=== PATIENT | male | born 1960 | race Caucasian/White ===

== ENCOUNTER 2016-05-21 10:03 | Emergency (ER) | payer MEDICARE ==
[2016-05-21 10:21] VITALS: BP 145/88
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
== END 2016-05-21 10:45 | disposition home or self-care (01) ==
LOC: UCEAST 10:03
DX: T54.3X1A Toxic effect of corrosive alkalis and alkali-like substances, accidental (unintentional), initial encounter (principal); T23.432A Corrosion of unspecified degree of multiple left fingers (nail), not including thumb, initial encounter; Y93.89 Activity, other specified; Y92.009 Unspecified place in unspecified non-institutional (private) residence as the place of occurrence of the external cause; Z86.73 Personal history of transient ischemic attack (TIA), and cerebral infarction without residual deficits; Z88.1 Allergy status to other antibiotic agents; Z87.891 Personal history of nicotine dependence
CPT/HCPCS: 99212; G0463

== ENCOUNTER 2016-08-24 07:12 | Emergency (ER) | payer MEDICARE ==
[2016-08-24] MEDS ORDERED: Lidocaine 2% EPI 1:200000 MPF* 20 ML VIAL INJ ONE (09:06)
[2016-08-24] MEDS ORDERED: Lidocaine 2% W/EPI 1:100,000* 20 ML MDV INJ ONE (09:19)
[2016-08-24 10:03] VITALS: BP 130/76
--- NOTE | 2016-08-24 14:33 | UC ---
leilani Huitron Timothy, scribed for Anabel Allison MD on 08/24/16 at 0906 . Skin Complaint HPI - HPI Summary HPI Summary: Pee De Jesus Jr. is a 56 yo male presenting to [facility] with a red raised lump at his right axilla causing 8/10 pain since 08/22/16 evening, without drainage. He denies any other Sx including fever, chills, diaphoresis, or Hx of similar Sx.. His MHx includes CVA, angina, HTN, HLD, diabetic neuropathy, DM II, MRSA. - History of Current Complaint Chief Complaint: UCSkin Time Seen by Provider: 08/24/16 09:20 Stated Complaint: SOFT TISSUE COMPLAINT Hx Obtained From: Patient Onset/Duration: Gradual Onset, Lasting Days, Still Present Skin Exposure Onset/Duration: Days Ago Timing: Constant Onset Severity: Moderate Current Severity: Moderate Pain Intensity: 8 Pain Scale Used: 0-10 Numeric Location: Other - right axilla Character: Swelling, Raised, Painful Associated Signs & Symptoms: Negative: Fever - Allergy/Home Medications Allergies/Adverse Reactions: Allergies Allergy/AdvReac Type Severity Reaction Status Date / Time Cephalexin [From Keflex] Allergy Severe Anaphylatic Verified 06/29/16 18:52 Shock Eggs or Egg-derived Products AdvReac Intermediate Diarrhea Verified 06/29/16 18: 52 Review of Systems Constitutional: Negative Skin: Other - red raised lump at right axilla Eyes: Negative ENT: Negative Respiratory: Negative Cardiovascular: Negative Gastrointestinal: Negative Genitourinary: Negative Motor: Negative Neurovascular: Negative Musculoskeletal: Negative Neurological: Negative Psychological: Negative All Other Systems Reviewed And Are Negative: Yes PMH/Surg Hx/FS Hx/Imm Hx Endocrine History: Diabetes - II, diabetic neuropathy Cardiovascular History: Hypertension, Other - angina Other Cardiovascular History: HLD Neurological History: CVA Other History Of: Negative For: Anticoagulant Therapy - Surgical History Surgical History: Yes Surgery Procedure, Year, and Place: appendectomy, tonsillectomy - Family History Known Family History: Positive: Diabetes Negative: Cardiac Disease - Social History Alcohol Use: Rare Alcohol Amount: Quit drinking 2 months ago Substance Use Type: None Smoking Status (MU): Former Smoker Have You Smoked in the Last Year: No When Did the Patient Quit Smoking/Using Tobacco: 10 YRS AGO ( 2005 ) Household Exposure Type: Cigarettes - Immunization History Most Recent Influenza Vaccination: Never Most Recent Tetanus Shot: UTD Physical Exam Triage Information Reviewed: Yes Vital Signs: Initial Vital Signs Temp 97.7 F 08/24/16 07:34 Pulse 77 08/24/16 07:34 Resp 18 08/24/16 07:34 BP 104/68 08/24/16 07:34 Pulse Ox 96 08/24/16 07:34 Vital Signs Reviewed: Yes - Additional Comments Constitutional: Pt is awake, A&Ox3, in no acute distress,and cooperative. HENT: atraumatic, BRUNO, there is cerumen in the left and right ears with no discharge. The nose shows no discharge or lesions. Throat: pink, no purulence, teeth in good repair. Neck: supple, no masses or adenopathy, no JVD, no thyromegaly. Respiratory: Lungs CTA bilaterally Cardiovascular: RRR, no murmur. Abd: soft, nontender, no masses, no organomegaly, Bowel Sounds: present and normal Musculoskeletal: Full ROM, good color to extremities, good tone, power 5/5 in all extremities Neuro: AOx3, cooperative, coherent Skin: clear, good turgor, except for right axilla where there is a raised swollen, tender, warm area of approximately 10cm in diameter. The redness is approximately 2.5 cm in diameter in the center. Re-Evaluation - Re-Evaluation First Eval Re-Evaluation Time: 09:36 Change: Unchanged Comment: I&D was performed - see procedure notes Course/Dx - Course Course Of Treatment: Pee De Jesus Jr. is a 56 yo male presenting to [facility] with a red raised lump on his right axilla causing 8/10 pain since 08/22/16. After clinical examination, an I&D was performed (see procedure notes) without complications, and Pt will be discharged home with right axilla skin abscess with appropriate instructions. - Differential Diagnoses - Skin Complaint Differential Diagnoses: Abscess - Diagnoses Provider Diagnoses: right axilla skin abscess Procedures - Procedure Summary Procedure Summary: I&D was performed on area of right axilla with 2% lidocaine with epinepherine and scalpel (11), packed with iodoform. Incision was approximately 1 cm long, a small amount of purulent material extruded and a culture was obtained. Pt tolerated procedure well. There were no complications.Very little bleeding occurred. - Incision and Drainage Site: Right axilla Anesthesia: Lidocaine - 2% with epi Instrument(s): Scalpel - size 11 Packing: Other - iodoform Discharge - Discharge Plan Condition: Stable Disposition: HOME Prescriptions: Sulfamethox/Trimethoprim DS* [Bactrim DS 800/160 TAB*] 1 tab PO BID #14 tab Patient Education Materials: Abscess (ED), Warm Compress or Soak (ED) Referrals: Aleksey Cruz MD [Primary Care Provider] - 2 Days Additional Instructions: Please follow up with your primary care physician regarding your visit to urgent care today in 2-3 days to have the packing removed. The results of your wound culture will be available in 3 days, at which point you will be contacted if a change in treatment is necessary. Take ibuprofen or tylenol as needed for pain. Return to urgent care or the emergency department with any new or recurring symptoms. The documentation as recorded by the leilani mora Timothy accurately reflects the service I personally performed and the decisions made by me, Anabel Allison MD.
== END 2016-08-24 10:03 | disposition home or self-care (01) ==
LOC: UCEAST 07:12
DX: L02.411 Cutaneous abscess of right axilla (principal); I10 Essential (primary) hypertension; E78.5 Hyperlipidemia, unspecified; Z87.891 Personal history of nicotine dependence; E11.40 Type 2 diabetes mellitus with diabetic neuropathy, unspecified
CPT/HCPCS: 10060; 87070; 87077; 87186; 87205; 87640; 87641; 99212; G0463

== ENCOUNTER 2016-10-01 15:46 | Emergency (ER) | payer MEDICARE ==
[2016-10-01 15:52] VITALS: BP 92/58
--- NOTE | 2016-10-01 16:13 | UC ---
Eye Complaint HPI - HPI Summary HPI Summary: 56 yo male with right lower lid pain and swelling x 3 days now with fb sensation no photophobia - History of Current Complaint Chief Complaint: UCEye Stated Complaint: EYE COMPLAINT Time Seen by Provider: 10/01/16 15:56 Hx Obtained From: Patient Onset/Duration: Gradual Onset, Lasting Days Timing: Constant Severity Initially: Mild Severity Currently: Mild Pain Intensity: 3 Pain Scale Used: 0-10 Numeric Location of Injury: Eye Lid (lower) Character: Dull, Foreign Body Sensation Associated Signs And Symptoms: Positive: Swelling Eyes: 1 - stye - Allergies/Home Medications Allergies/Adverse Reactions: Allergies Allergy/AdvReac Type Severity Reaction Status Date / Time Cephalexin [From Keflex] Allergy Severe Anaphylatic Verified 10/01/16 15:52 Shock Eggs or Egg-derived Products AdvReac Intermediate Diarrhea Verified 10/01/16 15: 52 PMH/Surg Hx/FS Hx/Imm Hx Previously Healthy: Yes Other History Of: Negative For: Anticoagulant Therapy - Surgical History Surgical History: Yes Surgery Procedure, Year, and Place: appendectomy, tonsillectomy - Family History Known Family History: Positive: Hypertension, Diabetes Negative: Cardiac Disease - Social History Alcohol Use: Rare Alcohol Amount: Quit drinking 2 months ago Substance Use Type: None Smoking Status (MU): Former Smoker Have You Smoked in the Last Year: No When Did the Patient Quit Smoking/Using Tobacco: 10 YRS AGO ( 2005 ) Household Exposure Type: Cigarettes - Immunization History Most Recent Influenza Vaccination: Never Most Recent Tetanus Shot: UTD Review of Systems Constitutional: Negative Skin: Negative Eyes: Negative ENT: Negative Respiratory: Negative Cardiovascular: Negative Gastrointestinal: Negative Genitourinary: Negative Motor: Negative Neurovascular: Negative Musculoskeletal: Negative Neurological: Negative Psychological: Negative All Other Systems Reviewed And Are Negative: Yes Physical Exam Triage Information Reviewed: Yes Appearance: Well-Appearing, No Pain Distress, Well-Nourished Vital Signs: Initial Vital Signs Temp 98.5 F 10/01/16 15:49 Pulse 87 10/01/16 15:49 Resp 18 10/01/16 15:49 BP 92/58 10/01/16 15:49 Pulse Ox 99 10/01/16 15:49 Eyes: Positive: Conjunctiva Clear, Other: - stye as note/also FB right lower palpebral conjunctiva ENT: Positive: Hearing grossly normal. Negative: Nasal congestion, Trismus, Muffled/hoarse voice Neck: Positive: Supple, Nontender Respiratory: Positive: Lungs clear, Normal breath sounds, No respiratory distress Cardiovascular: Positive: RRR, No Murmur Musculoskeletal: Positive: ROM Intact, No Edema Neurological: Positive: Alert Psychological Exam: Normal Skin Exam: Normal Procedures - Eye Procedure Alcaine Drops Administered: No Eye FB Removal: removal w/ cotton swab Eye Complaint Course/Dx - Differential Dx/Diagnosis Provider Diagnoses: stye right eyelid. foreign body removed from right lower lid palpebral conjunctiva Discharge - Discharge Plan Condition: Stable Disposition: HOME Prescriptions: Erythromycin OPHTH.OINT* [Ilotycin OPHTH.OINT*] 1 applic RIGHT EYE QID #1 ophth.oint Patient Education Materials: Stye (ED), Eye Foreign Body (ED) Referrals: Aleksey Cruz MD [Primary Care Provider] - 3 Days (if not better) Additional Instructions: warm compresses 4 x day
== END 2016-10-01 16:18 | disposition home or self-care (01) ==
LOC: UCEAST 15:46
DX: H00.012 Hordeolum externum right lower eyelid (principal); T15.11XA Foreign body in conjunctival sac, right eye, initial encounter; X58.XXXA Exposure to other specified factors, initial encounter; Y93.9 Activity, unspecified; Y92.9 Unspecified place or not applicable; Y99.9 Unspecified external cause status; Z88.1 Allergy status to other antibiotic agents; Z87.891 Personal history of nicotine dependence
CPT/HCPCS: 67938; 99212; G0463

== ENCOUNTER → 2016-10-28 16:43 | Emergency (ER) | payer MEDICARE ==
[~2016-10-28 16:43] MED LIST: Ketorolac INJ* 30 MG/ML 1 ML VIAL IV ONE
[2016-10-28 18:31] LABS: Hematocrit 40 % (42-52); Hemoglobin 13.8 g/dl (14.0-18.0); Mean Corpuscular HGB Conc 35 g/dl (31-36); Mean Corpuscular Hemoglobin 31 pg (27-31); Mean Corpuscular Volume 88 fL (80-94); Mean Platelet Volume 8 um3 (7.4-10.4); Red Blood Count 4.51 10^6/ul (4.0-5.4); Red Cell Distribution Width 13 % (10.5-15); White Blood Count 5.9 10^3/ul (3.5-10.8)
--- NOTE | 2016-10-28 18:54 | RAD ---
INDICATION: Headache. COMPARISON: Comparison is made with a prior CT of the brain from June 29, 2016. TECHNIQUE: Contiguous axial sections of the brain were obtained from the skull base to the vertex without contrast. FINDINGS: The ventricles, cisterns and sulci are within normal limits. No significant focal abnormality or mass effect is seen. There is no evidence for hemorrhage. No significant focal osseous abnormality is seen. The visualized portion of the paranasal sinuses and mastoid air cells appear clear. IMPRESSION: NO EVIDENCE FOR ACUTE INTRACRANIAL ABNORMALITY.
[2016-10-28 18:56] LABS: Albumin 4.1 g/dL (3.2-5.2); C Reactive Protein 1.32 mg/L (< 5.00); Calcium 9.3 mg/dL (8.6-10.3); EGFR African American 40.2 (>60); EGFR Non-African American 31.3 (>60); Globulin 2.8 g/dL (2-4); Potassium 4.1 mmol/L (3.5-5.0); Total Bilirubin 0.7 mg/dL (0.2-1.0); Total Protein 6.9 g/dL (6.4-8.9)
[2016-10-28] MEDS: NS 0.9% 1000 ML* 2,000 ML IV ONE ×2 (20:05→21:05)
[2016-10-28 22:41] VITALS: BP 149/66
--- NOTE | 2016-10-29 11:41 | ED ---
Bahman Huitron Nikita, scribed for Ramírez Harman MD on 10/28/16 at 1750 . Complex/Multi-Sys Presentation - HPI Summary HPI Summary: Pt is a 56 y/o M BIBA who presents to ED c/o blurred vision, dizziness, frontal INGRAM, photophobia and neck pain. All sx began this morning at 1330 while bending down after lifting multiple wood boards. Blurred vision is only present when the pt is bending down. Neck pain is described as being located "in the back bone." INGRAM and blurred vision are now intermittent. Associated pain is currently moderate, ranked 7/10. INGRAM aggravated by moving his head, alleviated by nothing. Denies edema. PMHx HTN. - History Of Current Complaint Chief Complaint: EDGeneral Time Seen by Provider: 10/28/16 17:45 Hx Obtained From: Patient Onset/Duration: Lasting Hours - Since 1330, Still Present Timing: Intermittent, Lasting: Severity Currently: Moderate - 7/10 Location: Pain At: - Neck pain and INGRAM Aggravating Factor(s): INGRAM - moving his head. Blurred vision - bending down Alleviating Factor(s): Nothing Associated Signs And Symptoms: Positive: Dizziness, Headache - frontal. Negative: Edema - Allergies/Home Medications Allergies/Adverse Reactions: Allergies Allergy/AdvReac Type Severity Reaction Status Date / Time Cephalexin [From Keflex] Allergy Severe Anaphylatic Verified 10/01/16 15:52 Shock Eggs or Egg-derived Products AdvReac Intermediate Diarrhea Verified 10/01/16 15: 52 PMH/Surg Hx/FS Hx/Imm Hx Endocrine/Hematology History: Reports: Hx Diabetes Denies: Hx Anticoagulant Therapy, Hx Systemic Lupus Erythematosus, Hx Thyroid Disease, Hx Anemia Cardiovascular History: Reports: Hx Angina, Hx Hypercholesterolemia, Other Cardiovascular Problems/Disorders - IDDM, ANGINA, HIGH CHOLESTEROL Denies: Hx Congestive Heart Failure, Hx Coronary Artery Disease, Hx Hypertension, Hx Myocardial Infarction, Hx Valvular Heart Disease Respiratory History: Denies: Hx Asthma, Hx Chronic Obstructive Pulmonary Disease (COPD) GI History: Denies: Hx Ulcer, Other GI Disorders - DENIES History: Denies: Hx Dialysis, Hx Renal Disease, Other Problems/Disorders - DENIES Musculoskeletal History: Denies: Hx Rheumatoid Arthritis Sensory History: Reports: Hx Contacts or Glasses - reading Opthamlomology History: Reports: Hx Contacts or Glasses - reading Neurological History: Reports: Hx Nerve Disease - diabetic neuropathy Denies: Hx Dementia, Hx Developmental Delay, Hx Headaches, Hx Migraine, Hx Seizures, Hx Spinal Cord Injury, Other Neuro Impairments/Disorders - Cancer History Cancer Type, Location and Year: DENIES Hx Chemotherapy: No - Surgical History Surgery Procedure, Year, and Place: appendectomy, tonsillectomy - Immunization History Date of Tetanus Vaccine: utd Date of Influenza Vaccine: utd Infectious Disease History: No Infectious Disease History: Denies: Hx Clostridium Difficile, Hx Hepatitis, Hx Human Immunodeficiency Virus (HIV), Hx of Known/Suspected MRSA, Hx Shingles, Hx Tuberculosis, Hx Known/ Suspected VRSA, History Other Infectious Disease, Traveled Outside the [place] in Last 30 Days - Family History Known Family History: Positive: Hypertension, Diabetes Negative: Cardiac Disease - Social History Alcohol Use: Occasionally Alcohol Amount: Quit drinking 2 months ago Substance Use Type: Reports: None Smoking Status (MU): Former Smoker Have You Smoked in the Last Year: No Review of Systems Positive: Photophobia, Blurred Vision - Intermittent Positive: Arthralgia - Neck pain. Negative: Edema Neurological: Other - Dizziness Positive: Headache - Frontal - intermittent All Other Systems Reviewed And Are Negative: Yes Physical Exam Triage Information Reviewed: Yes Vital Signs On Initial Exam: Initial Vitals Pulse Resp Pulse Ox 83 16 96 10/28/16 16:56 10/28/16 16:56 10/28/16 16:56 Vital Signs Reviewed: Yes Appearance: Positive: Well-Appearing, No Pain Distress Skin: Positive: Warm, Skin Color Reflects Adequate Perfusion, Dry Head/Face: Positive: Normal Head/Face Inspection Eyes: Positive: Normal ENT: Positive: Normal ENT inspection Neck: Positive: Tenderness @ - Cervical tenderness and tenderness to flexion of his neck but negative Kernig's and Brudzinski's signs, Other: - Negative Kernig' s and Brudzinski's signs Respiratory/Lung Sounds: Positive: Clear to Auscultation, Breath Sounds Present Cardiovascular: Positive: RRR Abdomen Description: Positive: Nontender, Soft Bowel Sounds: Positive: Present Musculoskeletal: Positive: Normal Neurological: Positive: Normal Psychiatric: Positive: Normal, Affect/Mood Appropriate - Anderson Coma Scale Best Eye Response: 4 - Spontaneous Best Motor Response: 6 - Obeys Commands Best Verbal Response: 5 - Oriented Coma Scale Total: 15 Diagnostics - Vital Signs Vital Signs Temp Pulse Resp BP Pulse Ox 10/28/16 17:02 98.8 F 83 19 130/80 98 10/28/16 17:01 83 12 130/80 96 10/28/16 17:00 84 13 96 10/28/16 16:56 83 16 96 - Laboratory Lab Results: Lab Results 10/28/16 10/28/16 Range/Units 18:23 18:23 WBC 5.9 (3.5-10.8) 10^3/ul RBC 4.51 (4.0-5.4) 10^6/ul Hgb 13.8 L (14.0-18.0) g/dl Hct 40 L (42-52) % MCV 88 (80-94) fL MCH 31 (27-31) pg MCHC 35 (31-36) g/dl RDW 13 (10.5-15) % Plt Count 275 (150-450) 10^3/ul MPV 8 (7.4-10.4) um3 Neut % (Auto) 51.1 (38-83) % Lymph % (Auto) 35.1 (25-47) % Rice % (Auto) 10.3 H (1-9) % Eos % (Auto) 2.7 (0-6) % Baso % (Auto) 0.8 (0-2) % Absolute Neuts (auto) 3.0 (1.5-7.7) 10^3/ul Absolute Lymphs (auto) 2.1 (1.0-4.8) 10^3/ul Absolute Monos (auto) 0.6 (0-0.8) 10^3/ul Absolute Eos (auto) 0.2 (0-0.6) 10^3/ul Absolute Basos (auto) 0 (0-0.2) 10^3/ul Absolute Nucleated RBC 0.01 10^3/ul Nucleated RBC % 0.1 Sodium 128 L (133-145) mmol/L Potassium 4.1 (3.5-5.0) mmol/L Chloride 96 L (101-111) mmol/L Carbon Dioxide 23 (22-32) mmol/L Anion Gap 9 (2-11) mmol/L BUN 46 H (6-24) mg/dL Creatinine 2.19 H (0.67-1.17) mg/dL Est GFR ( Amer) 40.2 (>60) Est GFR (Non-Af Amer) 31.3 (>60) BUN/Creatinine Ratio 21.0 H (8-20) Glucose 188 H (70-100) mg/dL Calcium 9.3 (8.6-10.3) mg/dL Total Bilirubin 0.70 (0.2-1.0) mg/dL AST 17 (13-39) U/L ALT 16 (7-52) U/L Alkaline Phosphatase 53 (34-104) U/L C-Reactive Protein 1.32 (< 5.00) mg/L Total Protein 6.9 (6.4-8.9) g/dL Albumin 4.1 (3.2-5.2) g/dL Globulin 2.8 (2-4) g/dL Albumin/Globulin Ratio 1.5 (1-3) Result Diagrams: 10/28/16 18:23 10/28/16 18:23 Lab Statement: Any lab studies that have been ordered have been reviewed, and results considered in the medical decision making process. - CT Brain CT CT Interpretation: No Acute Changes - NO EVIDENCE FOR ACUTE INTRACRANIAL ABNORMALITY. CT Interpretation Completed By: Radiologist - EKG 1714 Cardiac Rate: NL - 83 bpm EKG Rhythm: Sinus Rhythm EKG Interpretation: No ST elevations Re-Evaluation - Re-Evaluation First Eval Re-Evaluation Time: 20:41 Change: Improved Comment: Pt feels better after being given 1L of fluids. Will be given additional 1L. Complex Multi-Symp Course/Dx Course Of Treatment: Mr. De Jesus presented C/O a severe INGRAM. He was found to be quite dehydrated and his symptoms improved with rehydration. - Diagnoses Provider Diagnoses: Severe dehydration Discharge - Discharge Plan Condition: Stable Disposition: HOME Patient Education Materials: Dehydration (ED) Referrals: Aleksey Cruz MD [Primary Care Provider] - 3 Days The documentation as recorded by the Bahman mora Nikita accurately reflects the service I personally performed and the decisions made by me, Ramírez Harman MD.
== END | disposition home or self-care (01) ==
LOC: ED 16:43
DX: E86.0 Dehydration (principal); H53.8 Other visual disturbances; H53.149 Visual discomfort, unspecified; R51 Headache
CPT/HCPCS: 36415; 70450; 80053; 85025; 86140; 93005; 96361; 96374; 99283; J1885

== ENCOUNTER 2017-03-17 10:07 | Inpatient (IN) | payer MEDICARE, MEDICAID ==
[2017-03-17 10:58] LABS: Hematocrit 37 % (42-52); Hemoglobin 12.5 g/dl (14.0-18.0); Mean Corpuscular HGB Conc 34 g/dl (31-36); Mean Corpuscular Hemoglobin 30 pg (27-31); Mean Corpuscular Volume 89 fL (80-94); Mean Platelet Volume 7 um3 (7.4-10.4); Platelet Count 265 10^3/ul (150-450); Red Blood Count 4.14 10^6/ul (4.0-5.4); Red Cell Distribution Width 13 % (10.5-15); White Blood Count 7.4 10^3/ul (3.5-10.8)
[2017-03-17 11:08] LABS: ABS Basophils 0.1 10^3/ul (0-0.2); ABS Eosinophils 0.3 10^3/ul (0-0.6); ABS Lymphocytes 1.4 10^3/ul (1.0-4.8); ABS Monocytes 0.6 10^3/ul (0-0.8); ABS Nucleated RBC 0 10^3/ul; Eosinophil % 3.5 % (0-6); Lymphocyte % 18.8 % (25-47); Nucleated Red Blood Cells % 0
--- NOTE | 2017-03-17 11:16 | RAD ---
INDICATION: Necrosis of the toe, nonhealing ulcer. TECHNIQUE: 3 views of the left foot were obtained. FINDINGS: There is soft tissue swelling and a soft tissue defect present along the inferior aspect of the right great toe. There is calcific debris about the defect. The bones are normal alignment. No significant focal osseous erosion or discrete abnormality is seen. No periosteal reaction is noted. IMPRESSION: SOFT TISSUE SWELLING AND EROSION ALONG THE PLANTAR SURFACE OF THE GREAT TOE. NO SPECIFIC RADIOGRAPHIC EVIDENCE FOR OSTEOMYELITIS. THIS CAN BE FURTHER EVALUATED WITH AN MRI OF THE FOOT WITHOUT CONTRAST CLINICALLY NEEDED.
[2017-03-17 11:17] LABS: EGFR Non-African American 77.3 (>60)
[2017-03-17] MEDS ORDERED: Acetaminophen TAB* 325 MG PO PRN (13:22)
[2017-03-17] MEDS ORDERED: Dextrose 50% Syringe 50 ML* 25 GM/50 ML SYRINGE IV PUSH PRN (13:22)
[2017-03-17] MEDS ORDERED: HYDROcodone/ACETAMIN 5-325 MG* 1 TAB PO PRN (13:22)
[2017-03-17] MEDS ORDERED: Vancomycin(*) 1,000 MG in NS 0.9% 250 ML* 250 ML IVPB ONE (13:23)
[2017-03-17] MEDS ORDERED: Piperacillin/Tazobac ADVAN(*) 3.375 GM in NS 0.9% 100 ML* 100 ML IVPB ONE (13:29)
[2017-03-17] MEDS ORDERED: NS 0.9% 1000 ML* 1,000 ML IV SCH (13:30)
[2017-03-17] MEDS ORDERED: Zosyn per Pharmacy* NOTE FOLLOW UP SCH (14:00)
--- NOTE | 2017-03-17 14:31 | ED ---
Lower Extremity - HPI Summary HPI Summary: Patient presents to the ED with CC of left plantar surface toe pain and discoloration. He states he noticed it 1 week ago and "may have" injured it by scraping the surface of the toe. He is a diabetic but denies diabetic neuropathy stating the pain has progressively been worsening. While the discoloration began with erythema and warmth to the toe and into the MCP joint, he noticed black discoloration with a strong odor a few days ago. He has been cleaning it without relief. Denies other symptoms. He states he has been taking all of his diabetic medications as prescribed and checks his sugars regularly. Hx of HTN. Denies fevers, sweats and chills. Has been otherwise feeling well. Pain is now extending to the ankle and sometimes radiates into the knee. - History of Current Complaint Chief Complaint: EDExtremityLower Stated Complaint: FOOT PAIN Time Seen by Provider: 03/17/17 10:09 Hx Obtained From: Patient Mechanism Of Injury: Blunt Trauma Onset of Pain: Minutes Onset/Duration: Minutes Severity Initially: Moderate Severity Currently: Moderate Pain Intensity: 9 Timing: Constant Location: Is Discrete @ - plantar surface of the great toe Associated Signs And Symptoms: Positive: Swelling, Redness Aggravating Factor(s): Ambulation, Movement, Weight Bearing Alleviating Factor(s): Rest Able to Bear Weight: No - Risk Factors Gout Risk Factors: Diabetes - Allergies/Home Medications Allergies/Adverse Reactions: Allergies Allergy/AdvReac Type Severity Reaction Status Date / Time Cephalexin [From Keflex] Allergy Severe Anaphylatic Verified 10/01/16 15:52 Shock Eggs or Egg-derived Products AdvReac Intermediate Diarrhea Verified 10/01/16 15: 52 Home Medications: Home Medications Acarbose(NF) 50 mg PO TID 03/17/17 [History Confirmed 03/17/17] Insulin GLARGINE(*) [Lantus(*)] 26 units SUBCUT BEDTIME 03/17/17 [History Confirmed 03/17/17] Lisinopril TAB* [Prinivil TAB*] 10 mg PO DAILY 03/17/17 [History Confirmed 03/17] Pioglitazone TAB* [Actos TAB*] 30 mg PO DAILY 03/17/17 [History Confirmed ] Simvastatin TAB(NF) [Zocor(NF)] 20 mg PO DAILY 03/17/17 [History Confirmed 03/17] SitaGLIPtin (NF) [Januvia (NF)] 100 mg PO DAILY 03/17/17 [History Confirmed 07/28] PMH/Surg Hx/FS Hx/Imm Hx Previously Healthy: Yes Endocrine/Hematology History: Reports: Hx Diabetes Denies: Hx Anticoagulant Therapy, Hx Systemic Lupus Erythematosus, Hx Thyroid Disease, Hx Anemia Cardiovascular History: Reports: Hx Angina, Hx Hypercholesterolemia, Other Cardiovascular Problems/Disorders - IDDM, ANGINA, HIGH CHOLESTEROL Denies: Hx Congestive Heart Failure, Hx Coronary Artery Disease, Hx Hypertension, Hx Myocardial Infarction, Hx Valvular Heart Disease Respiratory History: Denies: Hx Asthma, Hx Chronic Obstructive Pulmonary Disease (COPD) GI History: Denies: Hx Ulcer, Other GI Disorders - DENIES History: Denies: Hx Dialysis, Hx Renal Disease, Other Problems/Disorders - DENIES Musculoskeletal History: Denies: Hx Rheumatoid Arthritis Sensory History: Reports: Hx Contacts or Glasses - reading Opthamlomology History: Reports: Hx Contacts or Glasses - reading Neurological History: Reports: Hx Nerve Disease - diabetic neuropathy Denies: Hx Dementia, Hx Developmental Delay, Hx Headaches, Hx Migraine, Hx Seizures, Hx Spinal Cord Injury, Other Neuro Impairments/Disorders - Cancer History Cancer Type, Location and Year: DENIES Hx Chemotherapy: No - Surgical History Surgery Procedure, Year, and Place: appendectomy, tonsillectomy - Immunization History Date of Tetanus Vaccine: utd Date of Influenza Vaccine: utd Infectious Disease History: No Infectious Disease History: Denies: Hx Clostridium Difficile, Hx Hepatitis, Hx Human Immunodeficiency Virus (HIV), Hx of Known/Suspected MRSA, Hx Shingles, Hx Tuberculosis, Hx Known/ Suspected VRSA, History Other Infectious Disease, Traveled Outside the [place] in Last 30 Days - Family History Known Family History: Positive: Hypertension, Diabetes Negative: Cardiac Disease - Social History Occupation: Unemployed Lives: With Family Alcohol Use: Occasionally Alcohol Amount: Quit drinking 2 months ago Hx Substance Use: No Substance Use Type: Reports: None Hx Tobacco Use: Yes Smoking Status (MU): Former Smoker Have You Smoked in the Last Year: No Review of Systems Constitutional: Negative Negative: Fever, Chills, Fatigue, Skin Diaphoresis Eyes: Negative Cardiovascular: Negative Respiratory: Negative Gastrointestinal: Negative Genitourinary: Negative Positive: no symptoms reported, see HPI Positive: Arthralgia - great L toe Positive: Other - necrosing tissue on the plantar surface of the L toe Neurological: Negative All Other Systems Reviewed And Are Negative: Yes Physical Exam - Summary Physical Exam Summary: Blackened, dry, devitalized tissue to the plantar surface of the L toe with surrounding dry yellow exudate with probing to the deep tissue without bone involvement. Dry, erythematous and warm slightly sloughing tissue surrounding the yellow exudate extending to the MCP joint of the great toe. Triage Information Reviewed: Yes Vital Signs On Initial Exam: Initial Vitals Temp Pulse Resp BP Pulse Ox 97.3 F 87 18 104/70 100 03/17/17 10:09 03/17/17 10:09 03/17/17 10:03/17/17 10:03/17/17 10:09 Vital Signs Reviewed: Yes Appearance: Positive: Well-Nourished Skin: Positive: Skin Color Reflects Adequate Perfusion, Other - Blackened, dry, devitalized tissue to the plantar surface of the L toe with surrounding dry yellow exudate with probing to the deep tissue without bone involvement. Dry, erythematous and warm slightly sloughing tissue surrounding the yellow exudate extending to the MCP joint of the great toe. Head/Face: Positive: Normal Head/Face Inspection Eyes: Positive: EOMI, BRUNO, Conjunctiva Clear Respiratory/Lung Sounds: Positive: Clear to Auscultation, Breath Sounds Present Cardiovascular: Positive: Normal, RRR, Pulses are Symmetrical in both Upper and Lower Extremities Musculoskeletal: Positive: Normal, Strength/ROM Intact Neurological: Positive: Speech Normal Psychiatric: Positive: Normal, Affect/Mood Appropriate - Gentry Coma Scale Coma Scale Total: 15 Diagnostics - Vital Signs Vital Signs Temp Pulse Resp BP Pulse Ox 03/17/17 13:09 88 98 03/17/17 13:07 139/78 03/17/17 10:09 97.3 F 87 18 104/70 100 - Laboratory Lab Results: Lab Results 03/17/17 03/17/17 03/17/17 Range/Units 10:35 10:35 10:35 WBC 7.4 (3.5-10.8) 10^3/ul RBC 4.14 (4.0-5.4) 10^6/ul Hgb 12.5 L (14.0-18.0) g/dl Hct 37 L (42-52) % MCV 89 (80-94) fL MCH 30 (27-31) pg MCHC 34 (31-36) g/dl RDW 13 (10.5-15) % Plt Count 265 (150-450) 10^3/ul MPV 7 L (7.4-10.4) um3 Neut % (Auto) 68.0 (38-83) % Lymph % (Auto) 18.8 L (25-47) % Young % (Auto) 8.8 (1-9) % Eos % (Auto) 3.5 (0-6) % Baso % (Auto) 0.9 (0-2) % Absolute Neuts (auto) 5.0 (1.5-7.7) 10^3/ul Absolute Lymphs (auto) 1.4 (1.0-4.8) 10^3/ul Absolute Monos (auto) 0.6 (0-0.8) 10^3/ul Absolute Eos (auto) 0.3 (0-0.6) 10^3/ul Absolute Basos (auto) 0.1 (0-0.2) 10^3/ul Absolute Nucleated RBC 0 10^3/ul Nucleated RBC % 0 ESR 60 H (0-20) mm/Hr Sodium 135 (133-145) mmol/L Potassium 4.3 (3.5-5.0) mmol/L Chloride 103 (101-111) mmol/L Carbon Dioxide 26 (22-32) mmol/L Anion Gap 6 (2-11) mmol/L BUN 22 (6-24) mg/dL Creatinine 1.00 (0.67-1.17) mg/dL Est GFR ( Amer) 99.4 (>60) Est GFR (Non-Af Amer) 77.3 (>60) BUN/Creatinine Ratio 22.0 H (8-20) Glucose 115 H (70-100) mg/dL Hemoglobin A1c 6.8 H (4.0-5.6) % Calcium 9.2 (8.6-10.3) mg/dL Total Bilirubin 0.30 (0.2-1.0) mg/dL AST 15 (13-39) U/L ALT 13 (7-52) U/L Alkaline Phosphatase 86 (34-104) U/L C-Reactive Protein 12.45 H (< 5.00) mg/L Total Protein 7.6 (6.4-8.9) g/dL Albumin 4.0 (3.2-5.2) g/dL Globulin 3.6 (2-4) g/dL Albumin/Globulin Ratio 1.1 (1-3) Result Diagrams: 03/17/17 10:35 03/17/17 10:35 Lab Statement: Any lab studies that have been ordered have been reviewed, and results considered in the medical decision making process. Lower Extremity Course/Dx - Course Course Of Treatment: Patient noted to have blackened, dry, devitalized tissue to the plantar surface of the L toe with surrounding dry yellow exudate with probing to the deep tissue without bone involvement. Dry, erythematous and warm slightly sloughing tissue surrounding the yellow exudate extending to the MCP joint of the great toe. Discussed case with Dr. Boucher who agrees to see patient and recommends admission for surgical debridement and IV antibiotics. Discussed case with Dr. Rincon who recommends surgical consult. Dr. Berumen called who recommends ortho for debridement. Hospitalist agrees to admit with Dr. Koch (ortho) to consult the patient today or tomorrow. Labs obtained and cultures obtained. Labs WNL. VS stable. - Diagnoses Provider Diagnoses: Diabetic ulcer of toe Discharge - Discharge Plan Condition: Stable Disposition: ADMITTED TO [facility] Referrals: Aleksey Cruz MD [Primary Care Provider] -
[2017-03-17] MEDS ORDERED: Gadoteridol* (CONTRAST) 279.3 MG/ML 10 ML IV ONE (15:04)
--- NOTE | 2017-03-17 15:05 | RAD ---
INDICATION: Osteomyelitis left great toe. COMPARISON: There are no prior studies available for comparison. TECHNIQUE: Bilateral ankle brachial indices were measured and Doppler tracings were obtained at the ankle of the dorsalis pedis and posterior tibial arteries. FINDINGS: The ankle brachial index on the right was 1.27 and on the left was 1.19. There is triphasic flow within the right posterior tibial artery and triphasic flow within the right dorsalis pedis artery. There is triphasic flow within the left posterior tibial artery and triphasic flow within the left dorsalis pedis artery. The toe brachial index was 0.83 on the right side is which is within normal limits. IMPRESSION: NEGATIVE EXAM.
[2017-03-17] MEDS ORDERED: Vancomycin per Pharmacy* NOTE FOLLOW UP PRN (15:07)
--- NOTE | 2017-03-17 16:29 | RAD ---
Indication: Ulcer at LEFT great toe. LEFT foot and ankle pain. Assess for osteomyelitis. Comparison: March 17, 2017 radiographs. Technique: Pre and postcontrast MRI LEFT ankle and foot. 17 mL ProHance administered IV. [employer] 1.5 Mya [id number] with GEM suite. Report: Corresponding with site of the ulcer at the medial plantar aspect of the tip of the great toe there is artifact from gas and metallic densities based on correlation with prior radiographs. There is diffuse bone marrow edema on inversion recovery at the distal phalanx of the great toe in corresponding loss of normal T1 marrow hyperintensity as well as enhancement on the postcontrast series consistent with osteomyelitis given the adjacent soft tissue ulcer. No loculated soft tissue plane abscess collection evident. Diffuse soft tissue edema from the visualized lower leg and ankle through the forefoot primarily involving the subcutaneous tissue plane with mild involvement of the intrinsic musculature of the foot. Negative for fracture, malalignment, or significant joint effusion. Degenerative arthropathy at the first tarsal metatarsal joint associated subchondral marrow edema. Negative for ankle ligament or tendon pathology. IMPRESSION: 1. Osteomyelitis throughout the distal phalanx of the great toe adjacent to the soft tissue ulcer. 2. Soft tissue edema/inflammatory change throughout the ankle and foot most marked at the subcutaneous tissue plane without evidence for a loculated abscess collection.
--- NOTE | 2017-03-17 16:30 | RAD ---
Indication: Ulcer at LEFT great toe. LEFT foot and ankle pain. Assess for osteomyelitis. Comparison: March 17, 2017 radiographs. Technique: Pre and postcontrast MRI LEFT ankle and foot. 17 mL ProHance administered IV. [employer] 1.5 Mya [id number] with GEM suite. Report: Corresponding with site of the ulcer at the medial plantar aspect of the tip of the great toe there is artifact from gas and metallic densities based on correlation with prior radiographs. There is diffuse bone marrow edema on inversion recovery at the distal phalanx of the great toe in corresponding loss of normal T1 marrow hyperintensity as well as enhancement on the postcontrast series consistent with osteomyelitis given the adjacent soft tissue ulcer. No loculated soft tissue plane abscess collection evident. Diffuse soft tissue edema from the visualized lower leg and ankle through the forefoot primarily involving the subcutaneous tissue plane with mild involvement of the intrinsic musculature of the foot. Negative for fracture, malalignment, or significant joint effusion. Degenerative arthropathy at the first tarsal metatarsal joint associated subchondral marrow edema. Negative for ankle ligament or tendon pathology. IMPRESSION: 1. Osteomyelitis throughout the distal phalanx of the great toe adjacent to the soft tissue ulcer. 2. Soft tissue edema/inflammatory change throughout the ankle and foot most marked at the subcutaneous tissue plane without evidence for a loculated abscess collection.
[2017-03-17] MEDS: Heparin VIAL(*) 5000 UNITS/ML VIAL (FIVE THOUSAND) SUBCUT SCH ×2 (17:44→20:44)
--- NOTE | 2017-03-17 18:04 | RAD ---
Indication: Osteoarthritis of the LEFT great toe. Comparison: September 05, 2014 Technique: Upright AP 1640 hours Report: Clear lungs and pleural spaces. Negative for pneumothorax. The heart, pulmonary vasculature, and mediastinal contours are unremarkable. Healed LEFT sixth, seventh, and eighth rib fractures without change. IMPRESSION: No evidence for acute intrathoracic disease.
[2017-03-17] MEDS: Insulin LISPRO* 1 UNITS UNIT SUBCUT SCH (19:01)
[2017-03-17] MEDS: ZOSYN 3.375 GM Q8H per EXTENDED INFUSION IVPB SCH ×2 (19:20)
--- NOTE | 2017-03-17 20:18 | HP ---
CC: Dr. Cruz; Dr. Koch; Dr. Hernandez * HISTORY AND PHYSICAL: DATE OF ADMISSION: 03/17/17 PRIMARY CARE PROVIDER: Dr. Cruz. ATTENDING PHYSICIAN WHILE IN THE HOSPITAL: Mo Rincon MD* (report dictated by Torres Duong NP). CONSULTING ORTHOPEDIC SURGEON: Dr. Koch. CONSULTING ID SPECIALIST: Dr. Hernandez. CHIEF COMPLAINT: Left great toe redness and wound. HISTORY OF PRESENT ILLNESS: Mr. De Jesus is a 56-year-old male patient with a history of diabetes. He also has a history of hypertension, migraines, and a history of remote CVA he says. He comes into the ED today stating that about few days before Sigurd, he noticed he was having difficulty with his left great toe. He notices the skin was coming off of it. It was looked like it was dry, then getting worse throughout the holiday. Then he says 2 to 3 days ago, he noticed that he had this black and discolored wound underneath his left great toe and the left great toe was started to get red, more painful, and swollen. He finally felt that he should probably seek medical attention for this and came into the ED today. He denied having any fevers or chills. Denies having any abdominal pain or any nausea or vomiting. Denies having any dysuria or any frequencies. He says he has not had any chest pain or shortness of breath. He says he is pretty active most of the time. He cannot get up a flight of stairs. He says that the wound is getting worse. He had no discharge or erythema and his ankle was starting to get painful, so he came into the ED today for evaluation. Evaluation is concerned for possible osteomyelitis, underlying cellulitis and we were asked to evaluate for admission. PAST MEDICAL HISTORY: Significant for: 1. Diabetes. 2. Hypertension. 3. History of migraines. 4. CVA. PAST SURGICAL HISTORY: He has had an appendectomy and tonsillectomy. MEDICATIONS: His home medications include: 1. Lisinopril 10 mg daily. 2. Actos 30 mg p.o. daily. 3. Lantus 26 units subcu at bedtime. 4. Acarbose 50 mg p.o. t.i.d. 5. Januvia 100 mg p.o. daily. 6. Zocor 20 mg a day. 7. Metformin 1000 mg p.o. b.i.d. ALLERGIES TO MEDICATIONS: KEFLEX and EGGS. FAMILY HISTORY: Both his parents had history of diabetes. SOCIAL HISTORY: He is a former smoker, rarely drinks alcohol. Surrogate decision maker is his sister. REVIEW OF SYSTEMS: There is no documented fever. He denied having any significant weight change. There was no double vision. He denies having any ear discharge. There was no rhinorrhea. No sore throat. No thyroid enlargement. Denied having any chest pain. There was no orthopnea. No nocturnal dyspnea. There was no abdominal pain. There was no dysuria, no frequency, no loss of consciousness. No pruritus, no skin ulcerations except in the aforementioned left great toe wound. Review of 14 systems was completed, all others negative. PHYSICAL EXAMINATION GENERAL: At this time, Mr. De Jesus is a 56-year-old male patient. He appears to be well-nourished, well-developed. He does not appear to be in any acute distress. VITAL SIGNS: Blood pressure 139/78, pulse 88, respirations 18, O2 sat 100%, temperature 97.3. HEENT: Head: Atraumatic, normocephalic. Eyes: EOMs are intact. Sclerae is anicteric and not pale. Throat: Oral mucosa appears to be moist. No oropharyngeal erythema. NECK: Supple. LUNGS: Clear to auscultation bilaterally. No wheezes, rales, or rhonchi. HEART: Sounds S1 and S2, regular rate and rhythm. No murmurs, rubs or gallops. ABDOMEN: Soft, flat, nontender. Bowel sounds are present. EXTREMITIES: Pulses were 2+ throughout. Moving all 4 extremities 5/5 strength. NEUROLOGIC: He is awake, alert, and oriented x3. No gross focal deficits. SKIN: He has a wound about the size of a johanna to the left great toe underneath that does have some eschar and necrotic tissue and there was erythema surrounding the entire great toe. He does have some pain palpated in the left ankle as well. No other wounds are noted. DIAGNOSTIC STUDIES/LAB DATA: His labs today revealed a WBC of 7.4, RBC of 4.14 , hemoglobin of 12.5, hematocrit of 37, platelet count of 255. Sodium is 135, potassium is 4.3, chloride of 103, bicarb 26, BUN 22, creatinine of 1, glucose of 115, calcium 9.5, total bili 0.3. AST 15, ALT 13, alk phos 86, CRP at 12, albumin of 4. The patient did have a foot x-ray obtained today, impression: Soft tissue swelling and erosion along the plantar surface of the great toe. No specific radiographic evidence of osteomyelitis, further evaluated with an MRI of the foot without contrast as clinically indicated. Old medical records were reviewed. ASSESSMENT AND PLAN: Mr. De Jesus is a 56-year-old male patient coming into the ED today with complaints of a left great toe wound. We were asked to evaluate for admission. He will be admitted under outpatient status for: 1. Left great toe wound. At this point, I will go ahead and get an MRI and Cynthia of the foot. Again, I talked with Dr. Koch who will evaluate the patient. He does not appear to be overtly septic, but I am concerned for cellulitis and possible osteomyelitis. I did get a wound care consult as well. We will get that MRI. We will put him on Zosyn and vancomycin. We will try to get wound culture and wound care involved as well to help us with the toe and we will continue to monitor him. 2. Diabetes. Checking an A1c, lispro sliding scale. 3. Hypertension. Continue medications as prescribed. His blood pressure now is in the 130s. We will follow. 4. History of migraines, p.r.n. Tylenol available. 5. History of cerebrovascular accident. Follow up with primary. 6. Code status. He is a full code. 7. Fluids, electrolytes, and nutrition. He can have a heart healthy diet and good consistent carb diet. 8. DVT prophylaxis. He is high risk. He will be placed on heparin subcu. TIME SPENT: On admission was approximately 60 minutes, greater than half the time was spent [id number] with the patient obtaining my history and physical, other half time was spent going over the plan of care with the patient and implementing plan of care. I did discuss the plan of care with my attending, Dr. Rincon; he is in agreement. TORRESNISSA DUONG NP [id number]/[facility] #: [id number] STONE
[2017-03-17] MEDS: Insulin GLARGINE(*) 1 UNITS UNIT SUBCUT SCH (20:42)
--- NOTE | 2017-03-17 21:51 | CONS ---
CONSULTATION REPORT: DATE OF CONSULT: 03/17/17 ATTENDING: Maninder Koch MD CONSULTING PROVIDER: Torres Duong NP CHIEF COMPLAINT: Left toe infection. HISTORY OF PRESENT ILLNESS: Briefly, Pee De Jesus is a 56-year-old male with diabetes, who presents with left foot swelling and pain. His great toe is red and swollen and painful. He also has left ankle pain. He states that a few weeks ago, it started to bother him, getting sore, he noticed an ulceration at the bottom of the great toe distal phalanx few days ago. This all began just before Ying happened. He denies any numbness or tingling. He is neuropathic at his toes only, but at the base of the feet he feels like he can feel okay. He does not know his hemoglobin A1c which was obtained today. He does have history of type 2 diabetes with noncompliance. PAST MEDICAL HISTORY: Significant for: 1. History of MRSA. 2. Diabetes type 2. 3. Hypertension. 4. History of migraine headaches. PAST SURGICAL HISTORY: Significant for appendectomy and tonsillectomy. MEDICATIONS: 1. Atenolol. 2. Kegley. 3. Lipitor. 4. Heparin. 5. Lantus and Humalog. 6. Lisinopril. 7. He is currently on vanco and Zosyn. ALLERGIES: KEFLEX has caused anaphylaxis. FAMILY HISTORY: Significant for diabetes. SOCIAL HISTORY: He does not smoke or drink. He quit smoking years ago. He does not use any illicit drugs. 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 REVIEW OF SYSTEMS: A 14-point review of systems is significant for the left foot pain. No numbness, no tingling. No fevers or chills. No shortness of breath or chest pain. Otherwise a 14-point review of systems were reviewed with the patient and negative. PHYSICAL EXAM: He is in no acute distress. He is well developed and well nourished. He is oriented x3. He has pleasant mood and normal affect. Examination of the left foot demonstrates left great toe is erythematous, it is insensate. He has 2 x 2 lesion on the plantar aspect of the great toe with no exposed bone that has dark eschar and appears to be black. There is no obvious debris. There is no drainage. He does have some small amount of erythema about the medial ankle, which is very tender to touch. He is sensate to light touch about the plantar aspect of foot, diminished about the mediolateral dorsal foot, diminished about the first dorsal web space. He is able to flex and extend his digits. He is able to dorsiflex and plantarflex his ankle. He is exquisitely tender about the medial ankle with cap refill about 3 seconds. Pulses were difficult to palpate. Calf is soft and nontender. Vital Signs: Temp 98.4, pulse is 78, respiratory rate is 16, O2 is 96, blood pressure 135/ 80. ABIs were done, that demonstrates as a negative exam, 1.27 on the right, on the left 1.19, triphasic flow. Toe brachial index was 0.83 on the right side which is within normal limits, considered a negative exam. DIAGNOSTIC STUDIES/LAB DATA: X-rays and MRI were reviewed. X-ray demonstrates soft tissue swelling and no obvious osteomyelitis. The lower extremity MRI was done including an ankle MRI that demonstrates osteomyelitis of the distal phalanx of the great toe with soft tissue ulceration as well as soft tissue edema and inflammatory change at the ankle and foot, but no obvious abscess. Labs obtained today demonstrates white blood cell count of 7.4, hematocrit 37, platelet count 265, ESR 60. Sodium of 135, potassium 4.3, chloride 103, carbon dioxide 26, BUN of 22, creatinine of 1, glucose of 115. Hemoglobin A1c is 6.8. C- reactive protein 12.45. ASSESSMENT AND PLAN: He has a left great toe osteomyelitis with ulceration plantarly. He has been started on antibiotics. Recommend wound care as well as we will discuss with my foot and ankle colleagues about the possible amputation of the great toe. We will continue to follow the patient while he is in-house. Potential surgery on Monday. [id number]/[facility] #: [id number] STONE
[2017-03-18] MEDS ORDERED: Vancomycin(*) 1,000 MG in NS 0.9% 250 ML* 250 ML IVPB SCH ×2
[2017-03-18] MEDS: ZOSYN 3.375 GM Q8H per EXTENDED INFUSION IVPB SCH ×6 (01:42→17:01)
[2017-03-18] MEDS: Heparin VIAL(*) 5000 UNITS/ML VIAL (FIVE THOUSAND) SUBCUT SCH ×3 (05:27→21:41)
[2017-03-18] MEDS: Insulin LISPRO* 1 UNITS UNIT SUBCUT SCH ×3 (09:06→17:00)
[2017-03-18] MEDS: Atorvastatin* 10 MG TAB PO SCH (09:13)
[2017-03-18] MEDS: Lisinopril TAB* 10 MG PO SCH (09:13)
--- NOTE | 2017-03-18 09:46 | PN ---
Progress Note - Progress Note Date of Service: 03/18/17 SOAP: Subjective: HD#1 pt without complaints. mild increase in odor. denies any SOB.CP Objective: Temp Pulse Resp BP Pulse Ox 97.4 F 79 16 111/62 97 03/18/17 04:31 03/18/17 04:31 03/18/17 04:31 03/18/17 04:31 03/18/17 04:31 NAD. left foot great toe with decreased erythema. able to flex/ext toe. neuropathic. purulence present about great toe wound with necrosis. Laboratory Results - last 24 hr 03/17/17 03/17/17 03/17/17 10:35 10:35 10:35 WBC 7.4 RBC 4.14 Hgb 12.5 L Hct 37 L MCV 89 MCH 30 MCHC 34 RDW 13 Plt Count 265 MPV 7 L Neut % (Auto) 68.0 Lymph % (Auto) 18.8 L [place] % (Auto) 8.8 Eos % (Auto) 3.5 Baso % (Auto) 0.9 Absolute Neuts (auto) 5.0 Absolute Lymphs (auto) 1.4 Absolute Monos (auto) 0.6 Absolute Eos (auto) 0.3 Absolute Basos (auto) 0.1 Absolute Nucleated RBC 0 Nucleated RBC % 0 ESR 60 H Sodium 135 Potassium 4.3 Chloride 103 Carbon Dioxide 26 Anion Gap 6 BUN 22 Creatinine 1.00 Est GFR ( Amer) 99.4 Est GFR (Non-Af Amer) 77.3 BUN/Creatinine Ratio 22.0 H Glucose 115 H POC Glucose (mg/dL) Hemoglobin A1c 6.8 H Calcium 9.2 Total Bilirubin 0.30 AST 15 ALT 13 Alkaline Phosphatase 86 C-Reactive Protein 12.45 H Total Protein 7.6 Albumin 4.0 Globulin 3.6 Albumin/Globulin Ratio 1.1 03/18/17 09:05 WBC RBC Hgb Hct MCV MCH MCHC RDW Plt Count MPV Neut % (Auto) Lymph % (Auto) [place] % (Auto) Eos % (Auto) Baso % (Auto) Absolute Neuts (auto) Absolute Lymphs (auto) Absolute Monos (auto) Absolute Eos (auto) Absolute Basos (auto) Absolute Nucleated RBC Nucleated RBC % ESR Sodium Potassium Chloride Carbon Dioxide Anion Gap BUN Creatinine Est GFR ( Amer) Est GFR (Non-Af Amer) BUN/Creatinine Ratio Glucose POC Glucose (mg/dL) 81 Hemoglobin A1c Calcium Total Bilirubin AST ALT Alkaline Phosphatase C-Reactive Protein Total Protein Albumin Globulin Albumin/Globulin Ratio Assessment: Left great toe osteomyelitis with ulceration. Plan: cont iv abx. WB through heel. dressing changes. plan for possible amputation versus debridement with Dr Patel Monday.
[2017-03-18 10:58] LABS: ABS Basophils 0.1 10^3/ul (0-0.2); ABS Eosinophils 0.2 10^3/ul (0-0.6); ABS Lymphocytes 1.1 10^3/ul (1.0-4.8); ABS Monocytes 0.5 10^3/ul (0-0.8); ABS Neutrophils 3.7 10^3/ul (1.5-7.7); ABS Nucleated RBC 0 10^3/ul; Eosinophil % 3.7 % (0-6); Hematocrit 34 % (42-52); Hemoglobin 11.7 g/dl (14.0-18.0); Lymphocyte % 19.2 % (25-47); Mean Corpuscular HGB Conc 35 g/dl (31-36); Mean Corpuscular Hemoglobin 31 pg (27-31); Mean Corpuscular Volume 89 fL (80-94); Mean Platelet Volume 8 um3 (7.4-10.4); Nucleated Red Blood Cells % 0; Platelet Count 235 10^3/ul (150-450); Red Blood Count 3.83 10^6/ul (4.0-5.4); Red Cell Distribution Width 12 % (10.5-15); White Blood Count 5.5 10^3/ul (3.5-10.8)
[2017-03-18 11:07] LABS: INR 1.1 (0.77-1.02)
[2017-03-18 11:13] LABS: EGFR Non-African American 89.6 (>60)
--- NOTE | 2017-03-18 13:21 | PN ---
Subjective Date of Service: 03/18/17 Interval History: Pt examined today at the bedside. He states he is feeling well. He denies chest pain and denies sob. Denies abdominal pain. Denies pain in his foot. ROS-denies fever, denies chills, denies abdominal pain, denies nausea, denies vomiting, denies lightheadedness, denies loc, denies chest pain, denies sob, review of 11 systems completed all others negative, Objective Active Medications: Acetaminophen (Tylenol Tab*) 650 mg PO Q4H PRN PRN Reason: FEVER/PAIN Hydrocodone Bitart/Acetaminophen ([place] 5-325 Tab*) 1 tab PO Q4H PRN PRN Reason: PAIN Atorvastatin Calcium (Lipitor*) 10 mg PO DAILY [facility] Last Admin: 03/18/17 09:13 Dose: 10 mg Dextrose (D50w Syringe 50 Ml*) 12.5 gm IV PUSH .FOR FS < 60 - SS PRN PRN Reason: FS < 60 Heparin Sodium (Porcine) (Heparin Vial(*)) 5,000 units SUBCUT Q8HR [facility] Last Admin: 03/18/17 13:11 Dose: 5,000 units Piperacillin Sod/Tazobactam (Sod 3.375 gm/ Sodium Chloride) 100 mls @ 25 mls/ hr IVPB Q8H [facility] Last Admin: 03/18/17 09:13 Dose: 25 mls/hr Insulin Glargine (Lantus(*)) 26 units SUBCUT BEDTIME [facility] Last Admin: 03/17/17 20:42 Dose: 26 units Insulin Human Lispro (Humalog*) 0 units SUBCUT AC [facility] PRN Reason: Protocol Last Admin: 03/18/17 13:11 Dose: 1 unit Lisinopril (Prinivil Tab*) 10 mg PO DAILY [facility] Last Admin: 03/18/17 09:13 Dose: 10 mg Vital Signs - 8 hr 03/18/17 08:34 Temperature 98.4 F Pulse Rate 78 Respiratory 18 Rate Blood Pressure 137/76 (mmHg) O2 Sat by Pulse 96 Oximetry Oxygen Devices in Use Now: None Appearance: 56 y/o male patient NAD, sitting in bed, Eyes: No Scleral Icterus, PERRLA Ears/Nose/Mouth/Throat: NL Teeth, Lips, Gums Neck: NL Appearance and Movements; NL JVP Respiratory: Symmetrical Chest Expansion and Respiratory Effort, Clear to Auscultation Cardiovascular: NL Sounds; No Murmurs; No JVD Abdominal: NL Sounds; No Tenderness; No Distention Extremities: No Edema Skin: - - dressing to left great toe, CDI, Neurological: Alert and Oriented x 3 Lines/Tubes/Other Access: Clean, Dry and Intact Peripheral IV Result Diagrams: 03/18/17 10:30 03/18/17 10:29 Additional Lab and Data: Lab Results 03/17/17 03/17/17 03/17/17 Range/Units 10:35 10:35 10:35 WBC 7.4 (3.5-10.8) 10^3/ul RBC 4.14 (4.0-5.4) 10^6/ul Hgb 12.5 L (14.0-18.0) g/dl Hct 37 L (42-52) % MCV 89 (80-94) fL MCH 30 (27-31) pg MCHC 34 (31-36) g/dl RDW 13 (10.5-15) % Plt Count 265 (150-450) 10^3/ul MPV 7 L (7.4-10.4) um3 Neut % (Auto) 68.0 (38-83) % Lymph % (Auto) 18.8 L (25-47) % [place] % (Auto) 8.8 (1-9) % Eos % (Auto) 3.5 (0-6) % Baso % (Auto) 0.9 (0-2) % Absolute Neuts (auto) 5.0 (1.5-7.7) 10^3/ul Absolute Lymphs (auto) 1.4 (1.0-4.8) 10^3/ul Absolute Monos (auto) 0.6 (0-0.8) 10^3/ul Absolute Eos (auto) 0.3 (0-0.6) 10^3/ul Absolute Basos (auto) 0.1 (0-0.2) 10^3/ul Absolute Nucleated RBC 0 10^3/ul Nucleated RBC % 0 ESR 60 H (0-20) mm/Hr Sodium 135 (133-145) mmol/L Potassium 4.3 (3.5-5.0) mmol/L Chloride 103 (101-111) mmol/L Carbon Dioxide 26 (22-32) mmol/L Anion Gap 6 (2-11) mmol/L BUN 22 (6-24) mg/dL Creatinine 1.00 (0.67-1.17) mg/dL Est GFR ( Amer) 99.4 (>60) Est GFR (Non-Af Amer) 77.3 (>60) BUN/Creatinine Ratio 22.0 H (8-20) Glucose 115 H (70-100) mg/dL Hemoglobin A1c 6.8 H (4.0-5.6) % Calcium 9.2 (8.6-10.3) mg/dL Total Bilirubin 0.30 (0.2-1.0) mg/dL AST 15 (13-39) U/L ALT 13 (7-52) U/L Alkaline Phosphatase 86 (34-104) U/L C-Reactive Protein 12.45 H (< 5.00) mg/L Total Protein 7.6 (6.4-8.9) g/dL Albumin 4.0 (3.2-5.2) g/dL Globulin 3.6 (2-4) g/dL Albumin/Globulin Ratio 1.1 (1-3) Microbiology and Other Data: Microbiology 03/17/17 17:40 Skin and Soft Tissue MRSA/MSSA (PCR - Final Toe - Left Big Mrsa Negative S.aureus Positive Gram Stain - Final 03/17/17 17:40 Nasal Screen MRSA (PCR)(HEATH) - Final Nasal Mrsa Negative Assess/Plan/Problems-Billing Assessment: 56 y/o male patient [place] [facility] [place] great toe wound found to have osteo of the left toe, - Patient Problems (1) Osteomyelitis Current Visit: Yes Status: Acute Priority: High Comment: Osteo of left great toe, continue iv abx, ID consult pending, on zosyn and vanco, follow bmp closely, ortho following, Dr faulkner to see monday (2) Diabetes Current Visit: Yes Status: Acute Priority: High Comment: Lantus and sliding scale continue, (3) HTN (hypertension) Current Visit: Yes Status: Acute Priority: High Comment: Continue lisinopril, bp stable, (4) DVT prophylaxis Current Visit: Yes Status: Acute Priority: High Comment: heparin sub q (5) FEN Current Visit: Yes Status: Acute Priority: High Comment: consistent carb diet, (6) Full code status Current Visit: Yes Status: Acute Code(s): Z78.9 - OTHER SPECIFIED HEALTH STATUS SNOMED Code(s): 068642768 Status and Disposition: IV abx, await ID consult, possible OR monday or I/D, cintia riley,
[2017-03-18] MEDS ORDERED: Vancomycin Trough Check NOTE FOLLOW UP ONE (15:30)
[2017-03-18] MEDS: Insulin GLARGINE(*) 1 UNITS UNIT SUBCUT SCH (21:40)
[2017-03-19] MEDS: ZOSYN 3.375 GM Q8H per EXTENDED INFUSION IVPB SCH ×6 (03:16→17:24)
[2017-03-19] MEDS: Heparin VIAL(*) 5000 UNITS/ML VIAL (FIVE THOUSAND) SUBCUT SCH ×3 (06:33→22:09)
[2017-03-19 07:22] LABS: ABS Basophils 0.1 10^3/ul (0-0.2); ABS Eosinophils 0.2 10^3/ul (0-0.6); ABS Lymphocytes 1.6 10^3/ul (1.0-4.8); ABS Monocytes 0.5 10^3/ul (0-0.8); ABS Neutrophils 2.8 10^3/ul (1.5-7.7); ABS Nucleated RBC 0 10^3/ul; Eosinophil % 4.5 % (0-6); Hematocrit 35 % (42-52); Hemoglobin 12.2 g/dl (14.0-18.0); Lymphocyte % 30.9 % (25-47); Mean Corpuscular HGB Conc 35 g/dl (31-36); Mean Corpuscular Hemoglobin 31 pg (27-31); Mean Corpuscular Volume 87 fL (80-94); Mean Platelet Volume 8 um3 (7.4-10.4); Nucleated Red Blood Cells % 0; Platelet Count 252 10^3/ul (150-450); Red Blood Count 3.96 10^6/ul (4.0-5.4); Red Cell Distribution Width 12 % (10.5-15); White Blood Count 5.2 10^3/ul (3.5-10.8)
[2017-03-19 07:35] LABS: EGFR Non-African American 79.1 (>60)
--- NOTE | 2017-03-19 09:00 | PN ---
Progress Note - Progress Note Date of Service: 03/19/17 SOAP: Subjective: Pt seen and examined. Eating at bedside. No complaints Objective: Temp Pulse Resp BP Pulse Ox 97.5 F 72 17 119/63 97 03/19/17 03:47 03/19/17 03:47 03/19/17 03:47 03/19/17 03:47 03/19/17 03:47 NAD. left toe dressing in place. able to dorsiflex/plantarflex foot. insensate about toe. erythema improved. calf soft nontender. warm perfused leg. Laboratory Results - last 24 hr 03/18/17 03/18/17 03/18/17 09:05 10:29 10:30 WBC 5.5 RBC 3.83 L Hgb 11.7 L Hct 34 L MCV 89 MCH 31 MCHC 35 RDW 12 Plt Count 235 MPV 8 Neut % (Auto) 66.3 Lymph % (Auto) 19.2 L [place] % (Auto) 9.7 H Eos % (Auto) 3.7 Baso % (Auto) 1.1 Absolute Neuts (auto) 3.7 Absolute Lymphs (auto) 1.1 Absolute Monos (auto) 0.5 Absolute Eos (auto) 0.2 Absolute Basos (auto) 0.1 Absolute Nucleated RBC 0 Nucleated RBC % 0 INR (Anticoag Therapy) Sodium 132 L Potassium 4.1 Chloride 102 Carbon Dioxide 25 Anion Gap 5 BUN 12 Creatinine 0.88 Est GFR ( Amer) 115.2 Est GFR (Non-Af Amer) 89.6 BUN/Creatinine Ratio 13.6 Glucose 202 H POC Glucose (mg/dL) 81 Calcium 8.7 Vancomycin Trough 03/18/17 03/18/17 03/18/17 10:30 13:04 15:50 WBC RBC Hgb Hct MCV MCH MCHC RDW Plt Count MPV Neut % (Auto) Lymph % (Auto) [place] % (Auto) Eos % (Auto) Baso % (Auto) Absolute Neuts (auto) Absolute Lymphs (auto) Absolute Monos (auto) Absolute Eos (auto) Absolute Basos (auto) Absolute Nucleated RBC Nucleated RBC % INR (Anticoag Therapy) 1.10 H Sodium Potassium Chloride Carbon Dioxide Anion Gap BUN Creatinine Est GFR ( Amer) Est GFR (Non-Af Amer) BUN/Creatinine Ratio Glucose POC Glucose (mg/dL) 143 H Calcium Vancomycin Trough 3.6 03/18/17 03/18/17 03/19/17 16:52 21:23 06:51 WBC 5.2 RBC 3.96 L Hgb 12.2 L Hct 35 L MCV 87 MCH 31 MCHC 35 RDW 12 Plt Count 252 MPV 8 Neut % (Auto) 53.8 Lymph % (Auto) 30.9 [place] % (Auto) 9.8 H Eos % (Auto) 4.5 Baso % (Auto) 1.0 Absolute Neuts (auto) 2.8 Absolute Lymphs (auto) 1.6 Absolute Monos (auto) 0.5 Absolute Eos (auto) 0.2 Absolute Basos (auto) 0.1 Absolute Nucleated RBC 0 Nucleated RBC % 0 INR (Anticoag Therapy) Sodium Potassium Chloride Carbon Dioxide Anion Gap BUN Creatinine Est GFR ( Amer) Est GFR (Non-Af Amer) BUN/Creatinine Ratio Glucose POC Glucose (mg/dL) 154 H 184 H Calcium Vancomycin Trough 03/19/17 06:51 WBC RBC Hgb Hct MCV MCH MCHC RDW Plt Count MPV Neut % (Auto) Lymph % (Auto) [place] % (Auto) Eos % (Auto) Baso % (Auto) Absolute Neuts (auto) Absolute Lymphs (auto) Absolute Monos (auto) Absolute Eos (auto) Absolute Basos (auto) Absolute Nucleated RBC Nucleated RBC % INR (Anticoag Therapy) Sodium 135 Potassium 4.2 Chloride 103 Carbon Dioxide 27 Anion Gap 5 BUN 15 Creatinine 0.98 Est GFR ( Amer) 101.8 Est GFR (Non-Af Amer) 79.1 BUN/Creatinine Ratio 15.3 Glucose 132 H POC Glucose (mg/dL) Calcium 9.2 Vancomycin Trough Assessment: A/P L great toe osteomyelitis with plantar ulceration Plan: WBAT through heel cont iv abx Dr Patel to [place] for possible toe amp tomorrow. NPO after midnight
[2017-03-19] MEDS: Lisinopril TAB* 10 MG PO SCH (09:39)
[2017-03-19] MEDS: Insulin LISPRO* 1 UNITS UNIT SUBCUT SCH ×3 (09:39→17:34)
[2017-03-19] MEDS: Atorvastatin* 10 MG TAB PO SCH (09:39)
--- NOTE | 2017-03-19 10:43 | PN ---
Subjective Date of Service: 03/19/17 Interval History: Pt examined today at the bedside. States that he is feeling well. He denies pain in is foot. States that he is ambulatory. Denies nausea or vomiting. Denies chest pain, ROS- denies fever, denies chills, denies abdominal pain, denies vomiting, denies lightheadedness, denies loc, denies chest pain, denies sob, review of 11 systems completed all others negative, Objective Active Medications: Acetaminophen (Tylenol Tab*) 650 mg PO Q4H PRN PRN Reason: FEVER/PAIN Hydrocodone Bitart/Acetaminophen ([place] 5-325 Tab*) 1 tab PO Q4H PRN PRN Reason: PAIN Atorvastatin Calcium (Lipitor*) 10 mg PO DAILY [facility] Last Admin: 03/19/17 09:39 Dose: 10 mg Dextrose (D50w Syringe 50 Ml*) 12.5 gm IV PUSH .FOR FS < 60 - SS PRN PRN Reason: FS < 60 Heparin Sodium (Porcine) (Heparin Vial(*)) 5,000 units SUBCUT Q8HR [facility] Last Admin: 03/19/17 06:33 Dose: 5,000 units Piperacillin Sod/Tazobactam (Sod 3.375 gm/ Sodium Chloride) 100 mls @ 25 mls/ hr IVPB Q8H [facility] Last Admin: 03/19/17 09:53 Dose: 25 mls/hr Insulin Glargine (Lantus(*)) 26 units SUBCUT BEDTIME [facility] Last Admin: 03/18/17 21:40 Dose: 26 units Insulin Human Lispro (Humalog*) 0 units SUBCUT AC [facility] PRN Reason: Protocol Last Admin: 03/19/17 09:39 Dose: 1 unit Lisinopril (Prinivil Tab*) 10 mg PO DAILY [facility] Last Admin: 03/19/17 09:39 Dose: 10 mg Vital Signs - 8 hr 03/19/17 03:47 Temperature 97.5 F Pulse Rate 72 Respiratory 17 Rate Blood Pressure 119/63 (mmHg) O2 Sat by Pulse 97 Oximetry Oxygen Devices in Use Now: None Appearance: 56 y/o male patient well nourished and well developed, NAD< Eyes: No Scleral Icterus, PERRLA Ears/Nose/Mouth/Throat: NL Teeth, Lips, Gums Neck: NL Appearance and Movements; NL JVP Respiratory: Symmetrical Chest Expansion and Respiratory Effort, Clear to Auscultation Cardiovascular: NL Sounds; No Murmurs; No JVD Abdominal: NL Sounds; No Tenderness; No Distention Extremities: - - dressing to Left great toe, CDI, Skin: - - Dressing to left great toe CDI, Neurological: Alert and Oriented x 3 Lines/Tubes/Other Access: Clean, Dry and Intact Peripheral IV Result Diagrams: 03/19/17 06:51 03/19/17 06:51 Additional Lab and Data: Lab Results 03/17/17 03/17/17 03/17/17 Range/Units 10:35 10:35 10:35 WBC 7.4 (3.5-10.8) 10^3/ul RBC 4.14 (4.0-5.4) 10^6/ul Hgb 12.5 L (14.0-18.0) g/dl Hct 37 L (42-52) % MCV 89 (80-94) fL MCH 30 (27-31) pg MCHC 34 (31-36) g/dl RDW 13 (10.5-15) % Plt Count 265 (150-450) 10^3/ul MPV 7 L (7.4-10.4) um3 Neut % (Auto) 68.0 (38-83) % Lymph % (Auto) 18.8 L (25-47) % [place] % (Auto) 8.8 (1-9) % Eos % (Auto) 3.5 (0-6) % Baso % (Auto) 0.9 (0-2) % Absolute Neuts (auto) 5.0 (1.5-7.7) 10^3/ul Absolute Lymphs (auto) 1.4 (1.0-4.8) 10^3/ul Absolute Monos (auto) 0.6 (0-0.8) 10^3/ul Absolute Eos (auto) 0.3 (0-0.6) 10^3/ul Absolute Basos (auto) 0.1 (0-0.2) 10^3/ul Absolute Nucleated RBC 0 10^3/ul Nucleated RBC % 0 ESR 60 H (0-20) mm/Hr Sodium 135 (133-145) mmol/L Potassium 4.3 (3.5-5.0) mmol/L Chloride 103 (101-111) mmol/L Carbon Dioxide 26 (22-32) mmol/L Anion Gap 6 (2-11) mmol/L BUN 22 (6-24) mg/dL Creatinine 1.00 (0.67-1.17) mg/dL Est GFR ( Amer) 99.4 (>60) Est GFR (Non-Af Amer) 77.3 (>60) BUN/Creatinine Ratio 22.0 H (8-20) Glucose 115 H (70-100) mg/dL Hemoglobin A1c 6.8 H (4.0-5.6) % Calcium 9.2 (8.6-10.3) mg/dL Total Bilirubin 0.30 (0.2-1.0) mg/dL AST 15 (13-39) U/L ALT 13 (7-52) U/L Alkaline Phosphatase 86 (34-104) U/L C-Reactive Protein 12.45 H (< 5.00) mg/L Total Protein 7.6 (6.4-8.9) g/dL Albumin 4.0 (3.2-5.2) g/dL Globulin 3.6 (2-4) g/dL Albumin/Globulin Ratio 1.1 (1-3) Microbiology and Other Data: Microbiology 03/17/17 17:40 Skin and Soft Tissue MRSA/MSSA (PCR - Final Toe - Left Big Mrsa Negative S.aureus Positive Gram Stain - Final 03/17/17 17:40 Nasal Screen MRSA (PCR)(HEATH) - Final Nasal Mrsa Negative Assess/Plan/Problems-Billing Assessment: 56 y/o male patient [place] [facility] [place] toe wound found to have osteo of the left toe, - Patient Problems (1) Osteomyelitis Current Visit: Yes Status: Acute Priority: High Comment: Osteo of left great toe, continue iv abx, ID consult pending, on zosyn and vanco, follow bmp closely, ortho following, OR tomorrow with DR Patel (2) Diabetes Current Visit: Yes Status: Acute Priority: High Comment: Lantus and sliding scale continue, blood sugars stable, (3) HTN (hypertension) Current Visit: Yes Status: Acute Priority: High Comment: BP stable hold lisinopril in AM, restart Post-op (4) DVT prophylaxis Current Visit: Yes Status: Acute Priority: High Comment: heparin sub q (5) FEN Current Visit: Yes Status: Acute Priority: High Comment: consistent carb diet, (6) Full code status Current Visit: Yes Status: Acute Code(s): Z78.9 - OTHER SPECIFIED HEALTH STATUS SNOMED Code(s): 209633967 Status and Disposition: IV abx, await ID consult, OR monday cintia riley,
[2017-03-19] MEDS: Insulin GLARGINE(*) 1 UNITS UNIT SUBCUT SCH (22:10)
[2017-03-20] MEDS: ZOSYN 3.375 GM Q8H per EXTENDED INFUSION IVPB SCH ×6 (02:12→17:49)
[2017-03-20 04:23] LABS: ABS Basophils 0.1 10^3/ul (0-0.2); ABS Eosinophils 0.3 10^3/ul (0-0.6); ABS Lymphocytes 1.9 10^3/ul (1.0-4.8); ABS Monocytes 0.5 10^3/ul (0-0.8); ABS Neutrophils 2.8 10^3/ul (1.5-7.7); ABS Nucleated RBC 0 10^3/ul; Eosinophil % 5.3 % (0-6); Hematocrit 35 % (42-52); Hemoglobin 12.1 g/dl (14.0-18.0); Lymphocyte % 33.8 % (25-47); Mean Corpuscular HGB Conc 35 g/dl (31-36); Mean Corpuscular Hemoglobin 30 pg (27-31); Mean Corpuscular Volume 87 fL (80-94); Mean Platelet Volume 7 um3 (7.4-10.4); Nucleated Red Blood Cells % 0; Platelet Count 252 10^3/ul (150-450); Red Blood Count 4.02 10^6/ul (4.0-5.4); Red Cell Distribution Width 12 % (10.5-15); White Blood Count 5.5 10^3/ul (3.5-10.8)
[2017-03-20 04:37] LABS: EGFR Non-African American 66.4 (>60)
[2017-03-20] MEDS: Heparin VIAL(*) 5000 UNITS/ML VIAL (FIVE THOUSAND) SUBCUT SCH ×3 (06:07→22:53)
[2017-03-20] MEDS: Insulin LISPRO* 1 UNITS UNIT SUBCUT SCH ×3 (08:22→17:50)
[2017-03-20] MEDS ORDERED: Midazolam* 1 MG/ML 2 ML VIAL (2 MG) ONE ×2 (09:52→10:14)
[2017-03-20] MEDS: Atorvastatin* 10 MG TAB PO SCH (10:11)
[2017-03-20] MEDS ORDERED: fentaNYL* 50 MCG/ML 2 ML VIAL (100 MCG VIAL) ONE (10:14)
[2017-03-20] MEDS ORDERED: Lidocaine 2% PF* 10 ML AMP ONE (10:20)
[2017-03-20] MEDS ORDERED: oxyCODONE TAB* 5 MG TAB PO PRN (10:42)
[2017-03-20] MEDS ORDERED: Naloxone* 0.4 MG/ML 1 ML VIAL IV PRN (10:42)
[2017-03-20] MEDS ORDERED: fentaNYL* 50 MCG/ML 2 ML VIAL (100 MCG VIAL) IV PRN (10:42)
[2017-03-20] MEDS ORDERED: Ondansetron INJ* 2 MG/ML VIAL IV PRN (10:42)
--- NOTE | 2017-03-20 12:07 | PN ---
Subjective Date of Service: 03/20/17 Interval History: PT examined today at the bedside. Pt states that he hungry. Denies pain in his foot. Denies chest pain or sob. Denies nausea or vomiting. ROS-denies fever, denies chills, denies abdominal pain, denies nausea or vomiting, denies lightheadedness, denies loc, denies chest pain, denies sob, review of 11 systems completed all others negative, Objective Active Medications: Acetaminophen (Tylenol Tab*) 650 mg PO Q4H PRN PRN Reason: FEVER/PAIN Hydrocodone Bitart/Acetaminophen ([place] 5-325 Tab*) 1 tab PO Q4H PRN PRN Reason: PAIN Atorvastatin Calcium (Lipitor*) 10 mg PO DAILY [facility] Last Admin: 03/20/17 10:11 Dose: Not Given Dextrose (D50w Syringe 50 Ml*) 12.5 gm IV PUSH .FOR FS < 60 - SS PRN PRN Reason: FS < 60 Fentanyl Citrate (Fentanyl*) 25 mcg IV Q2M PRN PRN Reason: PAIN - MODERATE Heparin Sodium (Porcine) (Heparin Vial(*)) 5,000 units SUBCUT Q8HR [facility] Last Admin: 03/20/17 06:07 Dose: Not Given Piperacillin Sod/Tazobactam (Sod 3.375 gm/ Sodium Chloride) 100 mls @ 25 mls/ hr IVPB Q8H [facility] Last Admin: 03/20/17 10:00 Dose: 25 mls/hr Insulin Glargine (Lantus(*)) 26 units SUBCUT BEDTIME [facility] Last Admin: 03/19/17 22:10 Dose: 26 units Insulin Human Lispro (Humalog*) 0 units SUBCUT AC [facility] PRN Reason: Protocol Last Admin: 03/20/17 08:22 Dose: Not Given Lisinopril (Prinivil Tab*) 10 mg PO DAILY [facility] Naloxone HCl (Narcan*) 0.08 mg IV Q2M PRN PRN Reason: severe induced resp depression Ondansetron HCl (Zofran Inj*) 4 mg IV ONCE PRN PRN Reason: NAUSEA/VOMITING Oxycodone HCl (Roxycodone Tab*) 5 mg PO ONCE PRN PRN Reason: PAIN - MODERATE Vital Signs - 8 hr 03/20/17 03/20/17 03/20/17 07:32 07:53 10:00 Temperature 98.0 F Pulse Rate 76 71 Respiratory 18 18 16 Rate Blood Pressure 115/60 137/78 (mmHg) O2 Sat by Pulse 95 91 Oximetry 03/20/17 03/20/17 03/20/17 10:52 10:55 11:15 Temperature 97.2 F Pulse Rate 73 69 72 Respiratory 16 16 16 Rate Blood Pressure 153/87 139/80 138/76 (mmHg) O2 Sat by Pulse 92 91 94 Oximetry Oxygen Devices in Use Now: Nasal Cannula Appearance: 56 y/o male patient sitting in bed NAD, Eyes: No Scleral Icterus, PERRLA Ears/Nose/Mouth/Throat: NL Teeth, Lips, Gums Neck: NL Appearance and Movements; NL JVP Respiratory: Symmetrical Chest Expansion and Respiratory Effort, Clear to Auscultation Cardiovascular: NL Sounds; No Murmurs; No JVD Abdominal: NL Sounds; No Tenderness; No Distention Extremities: No Edema Skin: No Rash or Ulcers, - - dressing to right foot CDI, Neurological: Alert and Oriented x 3 Lines/Tubes/Other Access: Clean, Dry and Intact Peripheral IV Result Diagrams: 03/20/17 04:15 03/20/17 04:15 Additional Lab and Data: Lab Results 03/17/17 03/17/17 03/17/17 Range/Units 10:35 10:35 10:35 WBC 7.4 (3.5-10.8) 10^3/ul RBC 4.14 (4.0-5.4) 10^6/ul Hgb 12.5 L (14.0-18.0) g/dl Hct 37 L (42-52) % MCV 89 (80-94) fL MCH 30 (27-31) pg MCHC 34 (31-36) g/dl RDW 13 (10.5-15) % Plt Count 265 (150-450) 10^3/ul MPV 7 L (7.4-10.4) um3 Neut % (Auto) 68.0 (38-83) % Lymph % (Auto) 18.8 L (25-47) % [place] % (Auto) 8.8 (1-9) % Eos % (Auto) 3.5 (0-6) % Baso % (Auto) 0.9 (0-2) % Absolute Neuts (auto) 5.0 (1.5-7.7) 10^3/ul Absolute Lymphs (auto) 1.4 (1.0-4.8) 10^3/ul Absolute Monos (auto) 0.6 (0-0.8) 10^3/ul Absolute Eos (auto) 0.3 (0-0.6) 10^3/ul Absolute Basos (auto) 0.1 (0-0.2) 10^3/ul Absolute Nucleated RBC 0 10^3/ul Nucleated RBC % 0 ESR 60 H (0-20) mm/Hr Sodium 135 (133-145) mmol/L Potassium 4.3 (3.5-5.0) mmol/L Chloride 103 (101-111) mmol/L Carbon Dioxide 26 (22-32) mmol/L Anion Gap 6 (2-11) mmol/L BUN 22 (6-24) mg/dL Creatinine 1.00 (0.67-1.17) mg/dL Est GFR ( Amer) 99.4 (>60) Est GFR (Non-Af Amer) 77.3 (>60) BUN/Creatinine Ratio 22.0 H (8-20) Glucose 115 H (70-100) mg/dL Hemoglobin A1c 6.8 H (4.0-5.6) % Calcium 9.2 (8.6-10.3) mg/dL Total Bilirubin 0.30 (0.2-1.0) mg/dL AST 15 (13-39) U/L ALT 13 (7-52) U/L Alkaline Phosphatase 86 (34-104) U/L C-Reactive Protein 12.45 H (< 5.00) mg/L Total Protein 7.6 (6.4-8.9) g/dL Albumin 4.0 (3.2-5.2) g/dL Globulin 3.6 (2-4) g/dL Albumin/Globulin Ratio 1.1 (1-3) Microbiology and Other Data: Microbiology 03/17/17 17:40 Skin and Soft Tissue MRSA/MSSA (PCR - Final Toe - Left Big Mrsa Negative S.aureus Positive Gram Stain - Final 03/17/17 17:40 Nasal Screen MRSA (PCR)(HEATH) - Final Nasal Mrsa Negative Assess/Plan/Problems-Billing Assessment: 56 y/[place] [facility] [place] toe wound found to have osteo of the left toe, - Patient Problems (1) Osteomyelitis Current Visit: Yes Status: Acute Priority: High Comment: Osteo of left great toe, continue iv abx, ID consult pending, on zosyn s/p left great toa amp POD 0 (2) Diabetes Current Visit: Yes Status: Acute Priority: High Comment: Lantus and sliding scale continue, blood sugars stable, (3) HTN (hypertension) Current Visit: Yes Status: Acute Priority: High Comment: BP stable hold lisinopril in AM, restart tomorrow (4) DVT prophylaxis Current Visit: Yes Status: Acute Priority: High Comment: heparin sub q (5) FEN Current Visit: Yes Status: Acute Priority: High Comment: consistent carb diet, (6) Full code status Current Visit: Yes Status: Acute Priority: High Status and Disposition: IV abx, await ID consult, PT eval and ID consult pending most likely will need iv abx and home services,
[2017-03-20] MEDS: Insulin GLARGINE(*) 1 UNITS UNIT SUBCUT SCH (22:52)
[2017-03-21] MEDS: ZOSYN 3.375 GM Q8H per EXTENDED INFUSION IVPB SCH ×4 (03:08→10:08)
[2017-03-21 06:10] LABS: ABS Basophils 0.1 10^3/ul (0-0.2); ABS Eosinophils 0.3 10^3/ul (0-0.6); ABS Lymphocytes 1.9 10^3/ul (1.0-4.8); ABS Monocytes 0.7 10^3/ul (0-0.8); ABS Neutrophils 4.7 10^3/ul (1.5-7.7); ABS Nucleated RBC 0 10^3/ul; Eosinophil % 4.2 % (0-6); Hematocrit 35 % (42-52); Hemoglobin 12.2 g/dl (14.0-18.0); Lymphocyte % 24.8 % (25-47); Mean Corpuscular HGB Conc 35 g/dl (31-36); Mean Corpuscular Hemoglobin 30 pg (27-31); Mean Corpuscular Volume 87 fL (80-94); Mean Platelet Volume 7 um3 (7.4-10.4); Nucleated Red Blood Cells % 0; Platelet Count 271 10^3/ul (150-450); Red Blood Count 4.03 10^6/ul (4.0-5.4); Red Cell Distribution Width 12 % (10.5-15); White Blood Count 7.8 10^3/ul (3.5-10.8)
[2017-03-21 06:17] LABS: EGFR Non-African American 76.4 (>60)
[2017-03-21] MEDS: Heparin VIAL(*) 5000 UNITS/ML VIAL (FIVE THOUSAND) SUBCUT SCH ×3 (06:21→21:22)
[2017-03-21] MEDS: Insulin LISPRO* 1 UNITS UNIT SUBCUT SCH ×3 (07:35→17:40)
[2017-03-21] MEDS: Atorvastatin* 10 MG TAB PO SCH (07:48)
[2017-03-21] MEDS: Lisinopril TAB* 10 MG PO SCH (07:48)
--- NOTE | 2017-03-21 11:53 | PN ---
Progress Note - Progress Note Date of Service: 03/21/17 SOAP: Subjective: []patient seen at bedside. he denies L foot pain, CP, SOB Objective: [] Vital Signs Temp 97.8 F 03/21/17 11:44 Pulse 81 03/21/17 11:44 Resp 16 03/21/17 11:44 BP 114/59 03/21/17 11:44 Pulse Ox 95 03/21/17 11:44 Intake & Output 03/20/17 03/21/17 03/21/17 18:59 06:59 18:59 Intake Total 1570 1440 590 Output Total 275 Balance 1570 1165 590 Intake: IV Fluids 300 200 ABX - ZOSYN 200 lr 300 Oral 1270 1240 590 Output: Urine 275 Other: Estimated Void Medium # Bowel Movements 1 Estimated Stool Amount Medium Estimated Blood Loss min Comment # Voids 2 Laboratory Last Values WBC 7.8 10^3/ul (3.5-10.8) 03/21/17 05:16 RBC 4.03 10^6/ul (4.0-5.4) 03/21/17 05:16 Hgb 12.2 g/dl (14.0-18.0) L 03/21/17 05:16 Hct 35 % (42-52) L 03/21/17 05:16 MCV 87 fL (80-94) 03/21/17 05:16 MCH 30 pg (27-31) 03/21/17 05:16 MCHC 35 g/dl (31-36) 03/21/17 05:16 RDW 12 % (10.5-15) 03/21/17 05:16 Plt Count 271 10^3/ul (150-450) 03/21/17 05:16 MPV 7 um3 (7.4-10.4) L 03/21/17 05:16 Neut % (Auto) 61.0 % (38-83) 03/21/17 05:16 Lymph % (Auto) 24.8 % (25-47) L 03/21/17 05:16 [place] % (Auto) 9.3 % (1-9) H 03/21/17 05:16 Eos % (Auto) 4.2 % (0-6) 03/21/17 05:16 Baso % (Auto) 0.7 % (0-2) 03/21/17 05:16 Absolute Neuts (auto) 4.7 10^3/ul (1.5-7.7) 03/21/17 05:16 Absolute Lymphs (auto) 1.9 10^3/ul (1.0-4.8) 03/21/17 05:16 Absolute Monos (auto) 0.7 10^3/ul (0-0.8) 03/21/17 05:16 Absolute Eos (auto) 0.3 10^3/ul (0-0.6) 03/21/17 05:16 Absolute Basos (auto) 0.1 10^3/ul (0-0.2) 03/21/17 05:16 Absolute Nucleated RBC 0 10^3/ul 03/21/17 05:16 Nucleated RBC % 0 03/21/17 05:16 ESR 60 mm/Hr (0-20) H 03/17/17 10:35 INR (Anticoag Therapy) 1.10 (0.77-1.02) H 03/18/17 10:30 Sodium 135 mmol/L (133-145) 03/21/17 05:16 Potassium 4.0 mmol/L (3.5-5.0) 03/21/17 05:16 Chloride 102 mmol/L (101-111) 03/21/17 05:16 Carbon Dioxide 27 mmol/L (22-32) 03/21/17 05:16 Anion Gap 6 mmol/L (2-11) 03/21/17 05:16 BUN 17 mg/dL (6-24) 03/21/17 05:16 Creatinine 1.01 mg/dL (0.67-1.17) 03/21/17 05:16 Est GFR ( Amer) 98.3 (>60) 03/21/17 05:16 Est GFR (Non-Af Amer) 76.4 (>60) 03/21/17 05:16 BUN/Creatinine Ratio 16.8 (8-20) 03/21/17 05:16 Glucose 124 mg/dL (70-100) H 03/21/17 05:16 POC Glucose (mg/dL) 87 mg/dL (70-100) 03/21/17 07:32 Hemoglobin A1c 6.8 % (4.0-5.6) H 03/17/17 10:35 Calcium 9.4 mg/dL (8.6-10.3) 03/21/17 05:16 Total Bilirubin 0.30 mg/dL (0.2-1.0) 03/17/17 10:35 AST 15 U/L (13-39) 03/17/17 10:35 ALT 13 U/L (7-52) 03/17/17 10:35 Alkaline Phosphatase 86 U/L (34-104) 03/17/17 10:35 C-Reactive Protein 12.45 mg/L (< 5.00) H 03/17/17 10:35 Total Protein 7.6 g/dL (6.4-8.9) 03/17/17 10:35 Albumin 4.0 g/dL (3.2-5.2) 03/17/17 10:35 Globulin 3.6 g/dL (2-4) 03/17/17 10:35 Albumin/Globulin Ratio 1.1 (1-3) 03/17/17 10:35 Vancomycin Trough 3.6 mcg/mL 03/18/17 15:50 General: NAD LLE: dressing in place, CDI. DF/PF intact. Cap refill brisk distally. Sensation intact distally BL LE: calves supple and nontender without erythema or edema Assessment: []POD 1 sp left great toe amputation Plan: []IV abx - awaiting ID consult, most likely will need iv abx and home services Heel WB
--- NOTE | 2017-03-21 13:34 | PN ---
Subjective Date of Service: 03/21/17 Interval History: Pt examined today at the bedside. States that he is feeling better. Denies chest pain and denies sob. States he is ambulating well denies pain to left foot. ROS-denies fever, denies chills, denies chest pain, denies sob, denies nausea, denies vomiting, denies abdominal pain, states had a bm today, denies lightheadedness, denies loc, review of 11 systems completed all others negative, Objective Active Medications: Acetaminophen (Tylenol Tab*) 650 mg PO Q4H PRN PRN Reason: FEVER/PAIN Hydrocodone Bitart/Acetaminophen ([place] 5-325 Tab*) 1 tab PO Q4H PRN PRN Reason: PAIN Last Admin: 03/20/17 22:52 Dose: 1 tab Atorvastatin Calcium (Lipitor*) 10 mg PO DAILY [facility] Last Admin: 03/21/17 07:48 Dose: 10 mg Dextrose (D50w Syringe 50 Ml*) 12.5 gm IV PUSH .FOR FS < 60 - SS PRN PRN Reason: FS < 60 Heparin Sodium (Porcine) (Heparin Vial(*)) 5,000 units SUBCUT Q8HR [facility] Last Admin: 03/21/17 06:21 Dose: 5,000 units Piperacillin Sod/Tazobactam (Sod 3.375 gm/ Sodium Chloride) 100 mls @ 25 mls/ hr IVPB Q8H [facility] Stop: 03/21/17 17:59 Last Admin: 03/21/17 10:08 Dose: 25 mls/hr Piperacillin Sod/Tazobactam (Sod 13.5 gm/ Sodium Chloride) 500 mls @ 20.833 mls /hr IVPB Q24H [facility] Insulin Glargine (Lantus(*)) 26 units SUBCUT BEDTIME [facility] Last Admin: 03/20/17 22:52 Dose: 26 units Insulin Human Lispro (Humalog*) 0 units SUBCUT AC [facility] PRN Reason: Protocol Last Admin: 03/21/17 11:46 Dose: Not Given Lisinopril (Prinivil Tab*) 10 mg PO DAILY [facility] Last Admin: 03/21/17 07:48 Dose: 10 mg Vital Signs - 8 hr 03/21/17 03/21/17 03/21/17 07:19 08:00 08:28 Temperature 97.4 F 0 F Pulse Rate 75 0 Respiratory 17 14 0 Rate Blood Pressure 109/65 00/0 (mmHg) O2 Sat by Pulse 95 0 Oximetry 03/21/17 11:44 Temperature 97.8 F Pulse Rate 81 Respiratory 16 Rate Blood Pressure 114/59 (mmHg) O2 Sat by Pulse 95 Oximetry Oxygen Devices in Use Now: Nasal Cannula Appearance: 56 y/o patient NAD, sitting in bed, Eyes: No Scleral Icterus, PERRLA Ears/Nose/Mouth/Throat: NL Teeth, Lips, Gums Neck: NL Appearance and Movements; NL JVP Respiratory: Symmetrical Chest Expansion and Respiratory Effort Cardiovascular: NL Sounds; No Murmurs; No JVD Abdominal: NL Sounds; No Tenderness; No Distention Extremities: No Edema Skin: - - dressing to left foot and toe cdi, Neurological: Alert and Oriented x 3 Lines/Tubes/Other Access: Clean, Dry and Intact Peripheral IV Result Diagrams: 03/21/17 05:16 03/21/17 05:16 Additional Lab and Data: Lab Results 03/17/17 03/17/17 03/17/17 Range/Units 10:35 10:35 10:35 WBC 7.4 (3.5-10.8) 10^3/ul RBC 4.14 (4.0-5.4) 10^6/ul Hgb 12.5 L (14.0-18.0) g/dl Hct 37 L (42-52) % MCV 89 (80-94) fL MCH 30 (27-31) pg MCHC 34 (31-36) g/dl RDW 13 (10.5-15) % Plt Count 265 (150-450) 10^3/ul MPV 7 L (7.4-10.4) um3 Neut % (Auto) 68.0 (38-83) % Lymph % (Auto) 18.8 L (25-47) % [place] % (Auto) 8.8 (1-9) % Eos % (Auto) 3.5 (0-6) % Baso % (Auto) 0.9 (0-2) % Absolute Neuts (auto) 5.0 (1.5-7.7) 10^3/ul Absolute Lymphs (auto) 1.4 (1.0-4.8) 10^3/ul Absolute Monos (auto) 0.6 (0-0.8) 10^3/ul Absolute Eos (auto) 0.3 (0-0.6) 10^3/ul Absolute Basos (auto) 0.1 (0-0.2) 10^3/ul Absolute Nucleated RBC 0 10^3/ul Nucleated RBC % 0 ESR 60 H (0-20) mm/Hr Sodium 135 (133-145) mmol/L Potassium 4.3 (3.5-5.0) mmol/L Chloride 103 (101-111) mmol/L Carbon Dioxide 26 (22-32) mmol/L Anion Gap 6 (2-11) mmol/L BUN 22 (6-24) mg/dL Creatinine 1.00 (0.67-1.17) mg/dL Est GFR ( Amer) 99.4 (>60) Est GFR (Non-Af Amer) 77.3 (>60) BUN/Creatinine Ratio 22.0 H (8-20) Glucose 115 H (70-100) mg/dL Hemoglobin A1c 6.8 H (4.0-5.6) % Calcium 9.2 (8.6-10.3) mg/dL Total Bilirubin 0.30 (0.2-1.0) mg/dL AST 15 (13-39) U/L ALT 13 (7-52) U/L Alkaline Phosphatase 86 (34-104) U/L C-Reactive Protein 12.45 H (< 5.00) mg/L Total Protein 7.6 (6.4-8.9) g/dL Albumin 4.0 (3.2-5.2) g/dL Globulin 3.6 (2-4) g/dL Albumin/Globulin Ratio 1.1 (1-3) Microbiology and Other Data: Microbiology 03/17/17 17:40 Skin and Soft Tissue MRSA/MSSA (PCR - Final Toe - Left Big Mrsa Negative S.aureus Positive Gram Stain - Final 03/17/17 17:40 Nasal Screen MRSA (PCR)(HEATH) - Final Nasal Mrsa Negative Assess/Plan/Problems-Billing Assessment: 56 y/o male patient presenting to [facility] [place] with complaints of left great toe wound found to have osteo of the left toe, - Patient Problems (1) Osteomyelitis Current Visit: Yes Status: Acute Priority: High Comment: Osteo of left great toe, continue iv abx, ID following, on zosyn s/p left great toe amp POD 1 (2) Diabetes Current Visit: Yes Status: Acute Priority: High Comment: Lantus and sliding scale continue, blood sugars stable, (3) HTN (hypertension) Current Visit: Yes Status: Acute Priority: High Comment: BP stable continue lisinopril (4) DVT prophylaxis Current Visit: Yes Status: Acute Priority: High Comment: heparin sub q (5) FEN Current Visit: Yes Status: Acute Priority: High Comment: consistent carb diet, (6) Full code status Current Visit: Yes Status: Acute Priority: High Status and Disposition: IV abx, id following, PT eval and needs darco boot case management to set up, to discuss with ID abx recommendations, path report pending,
--- NOTE | 2017-03-21 14:06 | OP ---
DATE OF OPERATION: 03/20/17 - ROOM #[id number] DATE OF : 60 SURGEON: Manoj Patel MD PRE-OP DIAGNOSIS: Ulceration with chronic osteomyelitis, left great interphalangeal joint. POST-OP DIAGNOSIS: Ulceration with chronic osteomyelitis, left great interphalangeal joint. OPERATIVE PROCEDURE: Amputation of left great toe with stump of proximal phalanx preserved. DESCRIPTION OF PROCEDURE: The patient was taken to the operating room where a transverse incision was made over the dorsum and plantar aspect of the proximal phalanx. We dissected proximally to the base of the proximal phalanx which was transected with a microsagittal saw. We irrigated thoroughly and cultures were sent. We sent the toe to Pathology. We closed dorsal to plantar flaps with 2- 0 Vicryl and 2-0 Prolene sutures. A compression dressing was applied. [id number]/[facility] #: [id number] MTDD
[2017-03-21] MEDS ORDERED: Piperacillin/Tazobactam 13.5 GM IV 24 hour continuous infusion IVPB SCH ×2 (18:00)
[2017-03-21] MEDS: Insulin GLARGINE(*) 1 UNITS UNIT SUBCUT SCH (20:28)
--- NOTE | 2017-03-21 22:06 | CONS ---
CONSULTATION REPORT: DATE OF CONSULT: 03/21/17 REQUESTING PROVIDER: Torres Duong NP CONSULTING SERVICE: Infectious Disease. REASON FOR CONSULTATION: Left great toe osteomyelitis. IMPRESSION: 1. Left great toe non-pressure related ulcer with osteomyelitis, acute at the distal phalanx, nonhematogenous. 2. Diabetes with neuropathy. 3. KEFLEX allergy. RECOMMENDATION: Continue Zosyn as he just started a bag for 24 hour infusion and I will change him to clindamycin 600 mg IV every 8 hours to cover group A Strep. Plan on 4 weeks of IV antibiotics for a possibility of any bacteria in the proximal phalanx. He has good blood supply, so I am optimistic about his healing this. HISTORY OF PRESENT ILLNESS: This is a 56-year-old diabetic admitted with left great toe ulcer, which he thinks developed end of February, developed some redness and swelling in that area up through the foot and ankle as well. Because of progression of that swelling, he came to the emergency room on the . The wound initially a bit of scab and started to turn black by the time he came to the hospital as well. He had an MRI that showed osteomyelitis in the distal phalanx of the great toe and was taken to the operating room on March 20 and had amputation of the distal phalanx. A culture on the of the wound was taken and the Gram stain showed Gram positive cocci in clusters, Gram variable cocci, Gram negative coccobacilli, Gram positive bacilli, Staph aureus PCR was positive, MRSA PCR negative. The culture is growing group A Strep with normal ramirez. He has not had an infection requiring hospitalization in the past. He has no fevers, chills, or sweats. His appetite is good. PAST MEDICAL HISTORY: 1. Diabetes. 2. Hypertension. 3. Migraine headaches. 4. History of stroke. 5. Status post appendectomy. 6. Status post tonsillectomy. MEDICATIONS: 1. Tylenol. 2. Lipitor. 3. Vicodin as needed. 4. Insulin glargine. 5. Insulin lispro. 6. Zosyn 13.5 g IV every 12 hours by continuous infusion. ALLERGIES: KEFLEX and EGGS. FAMILY HISTORY: No current infections. SOCIAL HISTORY: He is a nonsmoker, past alcohol, no travel. REVIEW OF SYSTEMS: All negative except as noted above. PHYSICAL EXAM: Vital Signs: Temperature is 37, heart rate is 79, respiratory rate 20, blood pressure 112/66, O2 sat 92% on room air. In general, he is awake , not in distress. Neurologic: Oriented x3. Follows all commands. HEENT: No conjunctival hemorrhage. Oropharynx without lesions. Heart is regular rate and rhythm without murmurs, rubs, or gallops. Lungs are clear to auscultation bilaterally. Abdomen: Soft, nontender, nondistended. There are bowel sounds present. Skin: There is no rash or splinter hemorrhages. Musculoskeletal: There is no spine tenderness to palpation. Left foot is wrapped. DIAGNOSTIC STUDIES/LAB DATA: White blood cell count 7.8, hemoglobin 12, platelets 271. Creatinine is 1. Please see impressions and recommendations outlined above. Thank you for asking me to see Mr. De Jesus in consultation. [id number]/[facility] #: [id number] MTDD
[2017-03-22] MEDS: Heparin VIAL(*) 5000 UNITS/ML VIAL (FIVE THOUSAND) SUBCUT SCH ×2 (05:24→13:51)
[2017-03-22] MEDS: Insulin LISPRO* 1 UNITS UNIT SUBCUT SCH ×2 (07:46→12:05)
[2017-03-22] MEDS: Lisinopril TAB* 10 MG PO SCH (08:00)
[2017-03-22] MEDS: Atorvastatin* 10 MG TAB PO SCH (08:00)
[2017-03-22 10:43] LABS: ABS Basophils 0.1 10^3/ul (0-0.2); ABS Eosinophils 0.3 10^3/ul (0-0.6); ABS Lymphocytes 1.6 10^3/ul (1.0-4.8); ABS Monocytes 0.8 10^3/ul (0-0.8); ABS Neutrophils 5.5 10^3/ul (1.5-7.7); ABS Nucleated RBC 0 10^3/ul; Eosinophil % 3.5 % (0-6); Hematocrit 36 % (42-52); Hemoglobin 12.4 g/dl (14.0-18.0); Lymphocyte % 19.2 % (25-47); Mean Corpuscular HGB Conc 35 g/dl (31-36); Mean Corpuscular Hemoglobin 31 pg (27-31); Mean Corpuscular Volume 89 fL (80-94); Mean Platelet Volume 7 um3 (7.4-10.4); Nucleated Red Blood Cells % 0; Platelet Count 273 10^3/ul (150-450); Red Blood Count 4.03 10^6/ul (4.0-5.4); Red Cell Distribution Width 13 % (10.5-15); White Blood Count 8.2 10^3/ul (3.5-10.8)
--- NOTE | 2017-03-22 10:43 | PN ---
Progress Note - Progress Note Date of Service: 03/22/17 SOAP: Subjective: []Patient seen at bedside. He denies left foot pain, fever, chills, CP or SOB. Objective: []General: NAD LLE: dressing in place, CDI. DF/PF intact. BL LE: calves supple and nontender without erythema or edema Vital Signs Temp 97.4 F 03/22/17 07:30 Pulse 77 03/22/17 07:30 Resp 16 03/22/17 07:30 BP 105/59 03/22/17 07:30 Pulse Ox 98 03/22/17 07:30 Intake & Output 03/21/17 03/22/17 03/22/17 18:59 06:59 18:59 Intake Total 2480 1047 Output Total 0 Balance 2480 1047 Intake: IVPB 200 247 ABX - ZOSYN 200 247 Oral 2280 800 Output: Urine 0 Other: Estimated Void Medium # Bowel Movements 0 # Voids 1 Laboratory Last Values WBC 7.8 10^3/ul (3.5-10.8) 03/21/17 05:16 RBC 4.03 10^6/ul (4.0-5.4) 03/21/17 05:16 Hgb 12.2 g/dl (14.0-18.0) L 03/21/17 05:16 Hct 35 % (42-52) L 03/21/17 05:16 MCV 87 fL (80-94) 03/21/17 05:16 MCH 30 pg (27-31) 03/21/17 05:16 MCHC 35 g/dl (31-36) 03/21/17 05:16 RDW 12 % (10.5-15) 03/21/17 05:16 Plt Count 271 10^3/ul (150-450) 03/21/17 05:16 MPV 7 um3 (7.4-10.4) L 03/21/17 05:16 Neut % (Auto) 61.0 % (38-83) 03/21/17 05:16 Lymph % (Auto) 24.8 % (25-47) L 03/21/17 05:16 [place] % (Auto) 9.3 % (1-9) H 03/21/17 05:16 Eos % (Auto) 4.2 % (0-6) 03/21/17 05:16 Baso % (Auto) 0.7 % (0-2) 03/21/17 05:16 Absolute Neuts (auto) 4.7 10^3/ul (1.5-7.7) 03/21/17 05:16 Absolute Lymphs (auto) 1.9 10^3/ul (1.0-4.8) 03/21/17 05:16 Absolute Monos (auto) 0.7 10^3/ul (0-0.8) 03/21/17 05:16 Absolute Eos (auto) 0.3 10^3/ul (0-0.6) 03/21/17 05:16 Absolute Basos (auto) 0.1 10^3/ul (0-0.2) 03/21/17 05:16 Absolute Nucleated RBC 0 10^3/ul 03/21/17 05:16 Nucleated RBC % 0 03/21/17 05:16 ESR 60 mm/Hr (0-20) H 03/17/17 10:35 INR (Anticoag Therapy) 1.10 (0.77-1.02) H 03/18/17 10:30 Sodium 135 mmol/L (133-145) 03/21/17 05:16 Potassium 4.0 mmol/L (3.5-5.0) 03/21/17 05:16 Chloride 102 mmol/L (101-111) 03/21/17 05:16 Carbon Dioxide 27 mmol/L (22-32) 03/21/17 05:16 Anion Gap 6 mmol/L (2-11) 03/21/17 05:16 BUN 17 mg/dL (6-24) 03/21/17 05:16 Creatinine 1.01 mg/dL (0.67-1.17) 03/21/17 05:16 Est GFR ( Amer) 98.3 (>60) 03/21/17 05:16 Est GFR (Non-Af Amer) 76.4 (>60) 03/21/17 05:16 BUN/Creatinine Ratio 16.8 (8-20) 03/21/17 05:16 Glucose 124 mg/dL (70-100) H 03/21/17 05:16 POC Glucose (mg/dL) 98 mg/dL (70-100) 03/22/17 07:37 Hemoglobin A1c 6.8 % (4.0-5.6) H 03/17/17 10:35 Calcium 9.4 mg/dL (8.6-10.3) 03/21/17 05:16 Total Bilirubin 0.30 mg/dL (0.2-1.0) 03/17/17 10:35 AST 15 U/L (13-39) 03/17/17 10:35 ALT 13 U/L (7-52) 03/17/17 10:35 Alkaline Phosphatase 86 U/L (34-104) 03/17/17 10:35 C-Reactive Protein 12.45 mg/L (< 5.00) H 03/17/17 10:35 Total Protein 7.6 g/dL (6.4-8.9) 03/17/17 10:35 Albumin 4.0 g/dL (3.2-5.2) 03/17/17 10:35 Globulin 3.6 g/dL (2-4) 03/17/17 10:35 Albumin/Globulin Ratio 1.1 (1-3) 03/17/17 10:35 Vancomycin Trough 3.6 mcg/mL 03/18/17 15:50 Assessment: []POD 2 s/p left great toe amputation Plan: []IV abx per ID: clindamycin 600 mg IV Q 8 hours x 4 weeks Heel WB
[2017-03-22 10:55] LABS: EGFR Non-African American 70.7 (>60)
[2017-03-22 11:25] VITALS: BP 107/68
--- NOTE | 2017-03-22 13:39 | PN ---
Subjective Date of Service: 03/22/17 Interval History: Patient seen and examined at bedside. Denies fever, chills, shortness of breath , chest discomfort, N/V/D. Pt states that he is feeling well and is anxious to go home. Family History: Unchanged from Admission Social History: Unchanged from Admission Past Medical History: Unchanged from Admission Objective Active Medications: Acetaminophen (Tylenol Tab*) 650 mg PO Q4H PRN Reason: FEVER/PAIN Hydrocodone Bitart/Acetaminophen ([place] 5-325 Tab*) 1 tab PO Q4H PRN Reason: PAIN Atorvastatin Calcium (Lipitor*) 10 mg PO DAILY [facility] Dextrose (D50w Syringe 50 Ml*) 12.5 gm IV PUSH .FOR FS < 60 - SS PRN Reason: FS < 60 Heparin Sodium (Porcine) (Heparin Vial(*)) 5,000 units SUBCUT Q8HR [facility] Piperacillin Sod/Tazobactam (Sod 13.5 gm/ Sodium Chloride) 500 mls @ 20.833 mls /hr IVPB Q24H [facility] Stop: 03/22/17 17:00 Clindamycin HCl/Dextrose (Cleocin 600 Mg Ivpremix(*) Sdv) 600 mg in 50 mls @ 100 mls/hr IV Q8H [facility] Insulin Glargine (Lantus(*)) 26 units SUBCUT BEDTIME [facility] Insulin Human Lispro (Humalog*) 0 units SUBCUT AC [facility] Lisinopril (Prinivil Tab*) 10 mg PO DAILY [facility] Vital Signs - 8 hr 03/22/17 03/22/17 03/22/17 07:30 08:00 11:17 Temperature 97.4 F 97.6 F Pulse Rate 77 77 Respiratory 16 16 16 Rate Blood Pressure 105/59 107/68 (mmHg) O2 Sat by Pulse 98 97 Oximetry Oxygen Devices in Use Now: None Appearance: NAD, laying in bed Ears/Nose/Mouth/Throat: Mucous Membranes Moist Respiratory: Symmetrical Chest Expansion and Respiratory Effort, Clear to Auscultation Cardiovascular: NL Sounds; No Murmurs; No JVD, RRR Abdominal: NL Sounds; No Tenderness; No Distention Extremities: No Edema Skin: - - Dressing to left foot clean, dry and intact Neurological: Alert and Oriented x 3, NL Muscle Strength and Tone Lines/Tubes/Other Access: Clean, Dry and Intact Peripheral IV - site benign Nutrition: Taking PO's Result Diagrams: 03/22/17 10:17 03/22/17 10:17 Additional Lab and Data: Microbiology and Other Data: Microbiology 03/17/17 17:40 Skin and Soft Tissue MRSA/MSSA (PCR - Final Toe - Left Big Mrsa Negative S.aureus Positive Gram Stain - Final 03/17/17 17:40 Nasal Screen MRSA (PCR)(HEATH) - Final Nasal Mrsa Negative Assess/Plan/Problems-Billing Assessment: Mr. Hrer is a 56 y/o male patient who presented to emergency room with complaints of a left great toe wound found to have osteo of the left great toe. - Patient Problems (1) Osteomyelitis Code(s): M86.9 - OSTEOMYELITIS, UNSPECIFIED SNOMED Code(s): 15278103 Comment: - Osteo of left great toe - s/p left great toe amp POD 2 - ID following, appreciate input - Continue iv abx (2) Diabetes Code(s): E11.9 - TYPE 2 DIABETES MELLITUS WITHOUT COMPLICATIONS SNOMED Code(s) : 93871070 Comment: - Glucose 90-200s - Continue Lantus and Lispro sliding scale (3) HTN (hypertension) Code(s): I10 - ESSENTIAL (PRIMARY) HYPERTENSION SNOMED Code(s): 99121625 Comment: - Normotensive - Continue lisinopril (4) DVT prophylaxis Code(s): FGJ9341 - SNOMED Code(s): 051987580 Comment: - heparin sub q (5) Full code status Code(s): Z78.9 - OTHER SPECIFIED HEALTH STATUS SNOMED Code(s): 323285355 Status and Disposition: Inpatient. IV abx, id following. Possible discharge to home later today or in the AM if able to arrange outpatient IV ABX.
[2017-03-22] MEDS ORDERED: Levofloxacin 500 MG IVPREMIX(* 500 MG/100 ML BAG IVPB SCH (15:00)
[2017-03-22] MEDS ORDERED: Clindamycin 600 MG IVPREMIX(* 600 MG/50 ML SDV IV SCH (18:00)
--- NOTE | 2017-03-23 13:31 | DS ---
CC: Dr. Aleksey Cruz * DISCHARGE SUMMARY: DATE OF ADMISSION: 03/17/17 DATE OF DISCHARGE: 03/22/17 ATTENDING PHYSICIAN: Dr. Liz Kaiser * (dictated by Carine Reed NP). PRIMARY CARE PROVIDER: Dr. Aleksey Cruz. PRIMARY DIAGNOSIS: Osteomyelitis of the left great toe, status post left great toe amputation. SECONDARY DIAGNOSES: 1. Diabetic neuropathy. 2. Diabetes mellitus. 3. Hypertension. 4. Migraines. 5. History of cerebrovascular accident. CONSULTATIONS WHILE IN THE HOSPITAL: 1. Dr. Hayden Hernandez with infectious Disease. 2. Dr. Maninder Koch with Orthopedic Surgery. PROCEDURES WHILE IN THE HOSPITAL: Status post a left great toe amputation by Dr. Manoj Patel on 03/20/17. STUDIES WHILE IN THE HOSPITAL: 1. Left foot x-ray, on 03/17/17. Radiologist's impression: Soft tissue swelling and erosion along the plantar surface of the great toe. Nonspecific radiographic evidence for osteomyelitis. This can be further evaluated with MRI of the foot without contrast if clinically needed. 2. ABIs on 03/17/17. Radiologist's impression: Negative exam. 3. Chest x-ray on 03/17/17. Radiologist's impression: No evidence for acute intrathoracic disease. 4. Left ankle MRI on 03/17/17. Radiologist's impression: Osteomyelitis throughout the distal phalanx of the great toe adjacent to the soft tissue ulcer. Soft tissue edema/inflammatory change throughout the ankle and foot, most marked at the subcutaneous tissue plane without evidence for a loculated abscess or collection. DISCHARGE MEDICATIONS: New medications: Levaquin 500 mg IV daily. Continued home medications: 1. Metformin 1000 mg oral twice daily. 2. Lisinopril 10 mg oral daily. 3. Actos 30 mg oral daily. 4. Lantus insulin 26 units subcutaneous daily at bedtime. 5. Acarbose 50 mg oral 3 times daily. 6. Januvia 100 mg oral daily. 7. Simvastatin 20 mg oral daily. HISTORY OF PRESENT ILLNESS/HOSPITAL COURSE: Mr. De Jesus is a 56-year-old male with past medical history significant for diabetes mellitus, hypertension, migraine headaches, history of stroke, who presented to the emergency room with complaints of having difficulty with his left great toe starting before [place]. He noted that the skin was coming off and it looks like it was dry and became worse over the holidays. Then, 2 to 3 days prior to his presentation , he noticed that he had a black and discolored wound underneath his left great toe and the left great toe started to get red and more painful and swollen. He felt he should he seek medical attention and presented to the emergency room. While in the emergency room, he had labs that were fairly unremarkable. He had a foot x-ray showing soft tissue swelling along the plantar surface of the great toe and the hospitalists were asked to evaluate the patient for admission. While in the hospital, the patient underwent an MRI of his foot showing an osteomyelitis and ABIs of his foot showing no significant findings. Dr. Koch with Orthopedic Surgery initially consulted on the patient. There were some concerns for underlying cellulitis and the patient was started on IV Zosyn and vancomycin. The patient was then taken to the operating room on 03/20/17 for a left great toe amputation with Dr. Patel. He was then seen in consultation by Dr. Hernandez, who felt that he should be treated with Levaquin daily for 14 more days and that if he was ready for discharge, he could be discharged when medically stable. The patient's wound was noted to grow Staph aureus in addition to Strep pyogenes. Blood cultures were negative to growth on day 5. He continued to do well. We were able to set him up in the infusion center. Mr. De Jesus is stable for discharge to home today. PHYSICAL EXAMINATION: Vital signs are as follows: Temperature 97.6, heart rate 77, respiratory rate 16, O2 sat 97% on room air, blood pressure 107/68. DISCHARGE PLAN: Mr. De Jesus will be discharged to home. Activity as tolerated. He has then encouraged to use his weight offloading boot whenever ambulating. Keep the dressing on his left foot clean, dry, and intact until he is seen in follow up by Dr. Patel. He has a followup appointment with Dr. Patel on 03/30 at 11 a.m. He has an appointment with his primary care provider, Dr. Cruz , on 03/30/17 at 2 p.m. Again, he has been set up with the infusion center. He is scheduled an appointment on , 03/23/17, at 10:30 a.m., at which time, he will receive his first outpatient dose of Levaquin and have a PICC line placed. The patient has been resumed on all of his usual home medications. He has been asked to return to the emergency room for any chest pain, shortness of breath. This is a summarized report of a complex medical history and hospital stay. For further details, please the entire medical record. Reviewed by ALEJANDRO PITT 03/29/17 1915 [id number]/[facility] #: [id number] [place]
== END 2017-03-22 16:45 | disposition home or self-care (01) | DRG 617 ==
LOC: ED 10:07 → MED 13:18
PROVIDERS: ADMIT Internal Medicine; ATTEND Internal Medicine
PROC: 0Y6Q0Z1 Detachment at Left 1st Toe, High, Open Approach (ICD-10-PCS; principal; 2017-03-20 15:45)
DX: E11.69 Type 2 diabetes mellitus with other specified complication (principal); M86.172 Other acute osteomyelitis, left ankle and foot; E11.40 Type 2 diabetes mellitus with diabetic neuropathy, unspecified; L97.529 Non-pressure chronic ulcer of other part of left foot with unspecified severity; M86.672 Other chronic osteomyelitis, left ankle and foot; E11.621 Type 2 diabetes mellitus with foot ulcer; I10 Essential (primary) hypertension; G43.909 Migraine, unspecified, not intractable, without status migrainosus; E78.00 Pure hypercholesterolemia, unspecified; R40.2412 Glasgow coma scale score 13-15, at arrival to emergency department; B95.61 Methicillin susceptible Staphylococcus aureus infection as the cause of diseases classified elsewhere; B95.4 Other streptococcus as the cause of diseases classified elsewhere; Z86.73 Personal history of transient ischemic attack (TIA), and cerebral infarction without residual deficits; Z88.1 Allergy status to other antibiotic agents; Z91.012 Allergy to eggs; Z83.3 Family history of diabetes mellitus; Z87.891 Personal history of nicotine dependence; Z83.49 Family history of other endocrine, nutritional and metabolic diseases; Z56.0 Unemployment, unspecified; Z86.14 Personal history of Methicillin resistant Staphylococcus aureus infection; Z79.4 Long term (current) use of insulin
CPT/HCPCS: 36415; 71045; 80048; 80053; 80202; 83036; 85025; 85610; 85652; 86140; 87040; 87070; 87073; 87077; 87186; 87205; 87640; 87641; 88305; 88311; 93005; 93922; 96365; 99284; A9270-GY; A9579; J1644; J1956; J2001; J2250; J2543; J3010; J3370

== ENCOUNTER 2017-09-25 15:26 | Emergency (ER) | payer MEDICARE, MEDICAID ==
[2017-09-25 17:46] LABS: ABS Basophils 0.1 10^3/ul (0-0.2); ABS Eosinophils 0.3 10^3/ul (0-0.6); ABS Lymphocytes 2.1 10^3/ul (1.0-4.8); ABS Monocytes 0.6 10^3/ul (0-0.8); ABS Neutrophils 3.1 10^3/ul (1.5-7.7); ABS Nucleated RBC 0 10^3/ul; Eosinophil % 5.3 % (0-6); Hematocrit 38 % (42-52); Hemoglobin 13.2 g/dl (14.0-18.0); Lymphocyte % 33.6 % (25-47); Mean Corpuscular HGB Conc 35 g/dl (31-36); Mean Corpuscular Hemoglobin 31 pg (27-31); Mean Corpuscular Volume 88 fL (80-94); Mean Platelet Volume 7.7 um3 (7.4-10.4); Nucleated Red Blood Cells % 0.1; Platelet Count 257 10^3/ul (150-450); Red Blood Count 4.29 10^6/ul (4.00-5.40); Red Cell Distribution Width 13 % (10.5-15); White Blood Count 6.2 10^3/ul (3.5-10.8)
[2017-09-25 18:04] LABS: EGFR Non-African American 47.1 (>60)
--- NOTE | 2017-09-25 19:05 | ED ---
Skin Complaint - HPI Summary HPI Summary: Patient complains of redness, tenderness, swelling to left great toe. States yesterday it "popped" and pus came out, and now pain has greatly diminished. Denies fever, N/V, abdominal pain, CP, SOB. History of DM. - History of Current Complaint Chief Complaint: EDExtremityLower Time Seen by Provider: 09/25/17 17:39 Stated Complaint: POSSIBLE INFECTION ON RT BIG TOE Hx Obtained From: Patient Onset/Duration: Started Days Ago Timing: Intermittent Onset Severity: Moderate Current Severity: None Pain Intensity: 0 Pain Scale Used: 0-10 Numeric Skin Location: Discrete Aggravating Symptom(s): Nothing Alleviating Symptom(s): Nothing - Additional Pertinent History Primary Care Physician: [id number] - Allergy/Home Medications Allergies/Adverse Reactions: Allergies Allergy/AdvReac Type Severity Reaction Status Date / Time cephalexin [From Keflex] Allergy Severe Anaphylatic Verified 09/25/17 17:40 Shock Egg Derived Allergy Intermediate Diarrhea Verified 09/25/17 17:40 PMH/Surg Hx/FS Hx/Imm Hx Endocrine/Hematology History: Reports: Hx Diabetes Denies: Hx Anticoagulant Therapy, Hx Systemic Lupus Erythematosus, Hx Thyroid Disease, Hx Anemia Cardiovascular History: Reports: Hx Angina, Hx Hypercholesterolemia, Hx Hypertension, Other Cardiovascular Problems/Disorders - IDDM, ANGINA, HIGH CHOLESTEROL Denies: Hx Congestive Heart Failure, Hx Coronary Artery Disease, Hx Myocardial Infarction, Hx Pacemaker/ICD, Hx Valvular Heart Disease Respiratory History: Denies: Hx Asthma, Hx Chronic Obstructive Pulmonary Disease (COPD) GI History: Denies: Hx Ulcer, Other GI Disorders - DENIES History: Denies: Hx Dialysis, Hx Renal Disease, Other Problems/Disorders - DENIES Musculoskeletal History: Denies: Hx Rheumatoid Arthritis Sensory History: Denies: Hx Contacts or Glasses, Hx Hearing Aid Opthamlomology History: Denies: Hx Contacts or Glasses Neurological History: Reports: Hx Nerve Disease - diabetic neuropathy Denies: Hx Dementia, Hx Developmental Delay, Hx Headaches, Hx Migraine, Hx Seizures, Hx Spinal Cord Injury, Other Neuro Impairments/Disorders Psychiatric History: Denies: Hx Panic Disorder - Cancer History Cancer Type, Location and Year: DENIES Hx Chemotherapy: No - Surgical History Surgery Procedure, Year, and Place: appendectomy, tonsillectomy - Immunization History Date of Tetanus Vaccine: utd Date of Influenza Vaccine: utd Infectious Disease History: No Infectious Disease History: Denies: Hx Clostridium Difficile, Hx Hepatitis, Hx Human Immunodeficiency Virus (HIV), Hx of Known/Suspected MRSA, Hx Shingles, Hx Tuberculosis, Hx Known/ Suspected VRSA, History Other Infectious Disease, Traveled Outside the [place] in Last 30 Days - Family History Known Family History: Positive: Hypertension, Diabetes Negative: Cardiac Disease - Social History Alcohol Use: Occasionally Alcohol Amount: Quit drinking 2 months ago Hx Substance Use: No Substance Use Type: Reports: None Hx Tobacco Use: Yes Smoking Status (MU): Former Smoker Have You Smoked in the Last Year: No Review of Systems Constitutional: Negative Eyes: Negative ENT: Negative Cardiovascular: Negative Respiratory: Negative Gastrointestinal: Negative Genitourinary: Negative Musculoskeletal: Negative Skin: Other Neurological: Negative Psychological: Normal All Other Systems Reviewed And Are Negative: Yes Physical Exam - Summary Physical Exam Summary: No abscess or fluctuant noted to left great toe. Positive redness and minimal swelling. No pain with palpation. Triage Information Reviewed: Yes Vital Signs On Initial Exam: Initial Vitals Temp Pulse Resp BP Pulse Ox 98.7 F 95 16 112/66 94 09/25/17 15:32 09/25/17 15:32 09/25/17 15:32 09/25/17 15:32 09/25/17 15:32 Vital Signs Reviewed: Yes Appearance: Positive: Well-Appearing Skin: Positive: Warm Head/Face: Positive: Normal Head/Face Inspection Eyes: Positive: Normal Neck: Positive: Supple Respiratory/Lung Sounds: Positive: Clear to Auscultation Cardiovascular: Positive: Normal Abdomen Description: Positive: Nontender Musculoskeletal: Positive: Normal Neurological: Positive: Normal Psychiatric: Positive: Normal AVPU Assessment: Alert - Maricarmen Coma Scale Best Eye Response: 4 - Spontaneous Best Motor Response: 6 - Obeys Commands Best Verbal Response: 5 - Oriented Coma Scale Total: 15 Diagnostics - Vital Signs Vital Signs Temp Pulse Resp BP Pulse Ox 09/25/17 17:14 98.8 F 85 16 115/76 99 09/25/17 15:32 98.7 F 95 16 112/66 94 - Laboratory Lab Results: Lab Results 09/25/17 09/25/17 Range/Units 17:33 17:33 WBC 6.2 (3.5-10.8) 10^3/ul RBC 4.29 (4.00-5.40) 10^6/ul Hgb 13.2 L (14.0-18.0) g/dl Hct 38 L (42-52) % MCV 88 (80-94) fL MCH 31 (27-31) pg MCHC 35 (31-36) g/dl RDW 13 (10.5-15) % Plt Count 257 (150-450) 10^3/ul MPV 7.7 (7.4-10.4) um3 Neut % (Auto) 49.7 (38-83) % Lymph % (Auto) 33.6 (25-47) % [place] % (Auto) 10.3 H (0-7) % Eos % (Auto) 5.3 (0-6) % Baso % (Auto) 1.1 (0-2) % Absolute Neuts (auto) 3.1 (1.5-7.7) 10^3/ul Absolute Lymphs (auto) 2.1 (1.0-4.8) 10^3/ul Absolute Monos (auto) 0.6 (0-0.8) 10^3/ul Absolute Eos (auto) 0.3 (0-0.6) 10^3/ul Absolute Basos (auto) 0.1 (0-0.2) 10^3/ul Absolute Nucleated RBC 0 10^3/ul Nucleated RBC % 0.1 ESR 13 (0-20) mm/Hr Sodium 137 (135-145) mmol/L Potassium 4.6 (3.5-5.0) mmol/L Chloride 105 (101-111) mmol/L Carbon Dioxide 24 (22-32) mmol/L Anion Gap 8 (2-11) mmol/L BUN 36 H (6-24) mg/dL Creatinine 1.53 H (0.67-1.17) mg/dL Est GFR ( Amer) 57.0 (>60) Est GFR (Non-Af Amer) 47.1 (>60) BUN/Creatinine Ratio 23.5 H (8-20) Glucose 149 H (70-100) mg/dL Calcium 9.3 (8.6-10.3) mg/dL Total Bilirubin 0.40 (0.2-1.0) mg/dL AST 19 (13-39) U/L ALT 19 (7-52) U/L Alkaline Phosphatase 59 (34-104) U/L C-Reactive Protein < 1.00 (<8.01) mg/L Total Protein 7.1 (6.4-8.9) g/dL Albumin 4.2 (3.2-5.2) g/dL Globulin 2.9 (2-4) g/dL Albumin/Globulin Ratio 1.4 (1-3) Result Diagrams: 09/25/17 17:33 09/25/17 17:33 Lab Statement: Any lab studies that have been ordered have been reviewed, and results considered in the medical decision making process. Course/Dx - Course Course Of Treatment: Patient complains of redness, tenderness, swelling to left great toe. States yesterday it "popped" and pus came out, and now pain has greatly diminished. Denies fever, N/V, abdominal pain, CP, SOB. History of DM. No abscess or fluctuant noted to left great toe. Positive redness and minimal swelling. No pain with palpation. Vital signs within normal limits. Labs unremarkable. Rx for Bactrim. Follow-up with primary care - Diagnoses Provider Diagnoses: Cellulitis Discharge - Sign-Out/Discharge Documenting (check all that apply): Patient Departure - Discharge Plan Condition: Stable Disposition: HOME Prescriptions: Sulfamethox/Trimethoprim DS* [Bactrim DS 800/160 TAB*] 1 tab PO BID 10 Days #20 tab Patient Education Materials: Cellulitis (ED) Referrals: Aleksey Cruz MD [Primary Care Provider] - Additional Instructions: Take antibiotics as directed. Follow-up with primary care. Return to the ED for any new or worsening symptoms - Billing Disposition and Condition Condition: STABLE Disposition: Home
[2017-09-25 19:48] VITALS: BP 121/66
== END 2017-09-25 19:45 | disposition home or self-care (01) ==
LOC: ED 15:26
DX: L03.032 Cellulitis of left toe (principal); E11.9 Type 2 diabetes mellitus without complications; Z87.891 Personal history of nicotine dependence; Z88.3 Allergy status to other anti-infective agents
CPT/HCPCS: 36415; 80053; 85025; 85652; 86140; 99282

== ENCOUNTER 2017-10-05 10:35 | Emergency (ER) | payer MEDICARE, MEDICAID ==
[2017-10-05 10:44] VITALS: BP 131/76
--- NOTE | 2017-10-05 11:03 | ED ---
Throat Pain/Nasal Congestion - HPI Summary HPI Summary: 57-year-old male presents with fullness of the left ear. He states it feels like something is stuck in his ear. He admits decrease in hearing. He never had this before. Does not have a history of ear irrigation. He denies any sinus congestion. No fever. No recent illness. His denies any other complaint. - History of Current Complaint Chief Complaint: UCEar Time Seen by Provider: 10/05/17 10:50 - Allergies/Home Medications Allergies/Adverse Reactions: Allergies Allergy/AdvReac Type Severity Reaction Status Date / Time cephalexin [From Keflex] Allergy Severe Anaphylatic Verified 09/25/17 17:40 Shock Egg Derived Allergy Intermediate Diarrhea Verified 09/25/17 17:40 PMH/Surg Hx/FS Hx/Imm Hx Endocrine/Hematology History: Reports: Hx Diabetes - insulin and pills Denies: Hx Anticoagulant Therapy, Hx Systemic Lupus Erythematosus, Hx Thyroid Disease, Hx Anemia Cardiovascular History: Reports: Hx Angina, Hx Hypercholesterolemia, Hx Hypertension, Other Cardiovascular Problems/Disorders - IDDM, ANGINA, HIGH CHOLESTEROL Denies: Hx Congestive Heart Failure, Hx Coronary Artery Disease, Hx Myocardial Infarction, Hx Pacemaker/ICD, Hx Valvular Heart Disease Respiratory History: Denies: Hx Asthma, Hx Chronic Obstructive Pulmonary Disease (COPD) GI History: Denies: Hx Ulcer, Other GI Disorders - DENIES History: Denies: Hx Dialysis, Hx Renal Disease, Other Problems/Disorders - DENIES Musculoskeletal History: Denies: Hx Rheumatoid Arthritis Sensory History: Denies: Hx Contacts or Glasses, Hx Hearing Aid Opthamlomology History: Denies: Hx Contacts or Glasses Neurological History: Reports: Hx Nerve Disease - diabetic neuropathy Denies: Hx Dementia, Hx Developmental Delay, Hx Headaches, Hx Migraine, Hx Seizures, Hx Spinal Cord Injury, Other Neuro Impairments/Disorders Psychiatric History: Denies: Hx Panic Disorder - Cancer History Cancer Type, Location and Year: DENIES Hx Chemotherapy: No - Surgical History Surgery Procedure, Year, and Place: appendectomy, tonsillectomy - Immunization History Date of Tetanus Vaccine: utd Date of Influenza Vaccine: utd Infectious Disease History: No Infectious Disease History: Denies: Hx Clostridium Difficile, Hx Hepatitis, Hx Human Immunodeficiency Virus (HIV), Hx of Known/Suspected MRSA, Hx Shingles, Hx Tuberculosis, Hx Known/ Suspected VRSA, History Other Infectious Disease, Traveled Outside the [place] in Last 30 Days - Family History Known Family History: Positive: Hypertension, Diabetes Negative: Cardiac Disease - Social History Alcohol Use: Occasionally Alcohol Amount: Quit drinking 2 months ago Hx Substance Use: No Substance Use Type: Reports: None Hx Tobacco Use: Yes Smoking Status (MU): Former Smoker Have You Smoked in the Last Year: No Review of Systems Negative: Fever Positive: Ear Ache Negative: Chest Pain Negative: Shortness Of Breath All Other Systems Reviewed And Are Negative: Yes Physical Exam Triage Information Reviewed: Yes Vital Signs On Initial Exam: Initial Vitals Temp Pulse Resp BP Pulse Ox 98.2 F 81 17 131/76 100 10/05/17 10:41 10/05/17 10:41 10/05/17 10:41 10/05/17 10:41 10/05/17 10:41 Vital Signs Reviewed: Yes Appearance: Positive: Well-Appearing Skin: Positive: Warm, Dry Head/Face: Positive: Normal Head/Face Inspection Eyes: Positive: Normal, EOMI, Conjunctiva Clear ENT: Positive: Pharynx normal, TMs normal, Other - bilateral ear canal cerumen impaction Respiratory/Lung Sounds: Positive: Clear to Auscultation, Breath Sounds Present Cardiovascular: Positive: Normal, RRR Musculoskeletal: Positive: Normal Neurological: Positive: Normal Psychiatric: Positive: Normal Diagnostics - Vital Signs Vital Signs Temp Pulse Resp BP Pulse Ox 10/05/17 10:41 98.2 F 81 17 131/76 100 - Laboratory Lab Statement: Any lab studies that have been ordered have been reviewed, and results considered in the medical decision making process. Re-Evaluation - Re-Evaluation First Eval Re-Evaluation Time: 11:11 Change: Improved Comment: wax removed from both ears, feeling better EENT Course/Dx - Course Course Of Treatment: 57-year-old male presents with fullness of the left ear. He states it feels like something is stuck in his ear. He admits decrease in hearing. He never had this before. Does not have a history of ear irrigation. He denies any sinus congestion. No fever. No recent illness. His denies any other complaint. On exam has cerumen impaction of left ear and cernumen present in right. irrigation was performed and removed cerumen. will give script for debox to use at home. patient has dx of HTN and is on medication. patient understand and agrees with plan. - Differential Diagnoses Differential Diagnoses: Cerumen Impaction, Otitis Externa, Otitis Media - Diagnoses Provider Diagnoses: Impacted cerumen of both ears Discharge - Sign-Out/Discharge Documenting (check all that apply): Patient Departure - Discharge Plan Condition: Good Disposition: HOME Prescriptions: Carbamide Peroxide 6.5% OTIC* [DEBROX 6.5% Otic*] 5 drop BOTH EARS BID #1 bottle Patient Education Materials: Cerumen Impaction (ED) Referrals: Aleksey Cruz MD [Primary Care Provider] - Additional Instructions: Use debrox: instill 5 to 10 drops twice daily up to 4 days. Return to ED if develop any new or worsening symptoms - Billing Disposition and Condition Condition: GOOD Disposition: Home
== END 2017-10-05 11:15 | disposition home or self-care (01) ==
LOC: UCEAST 10:35
DX: H61.23 Impacted cerumen, bilateral (principal); E11.9 Type 2 diabetes mellitus without complications; I10 Essential (primary) hypertension; E78.00 Pure hypercholesterolemia, unspecified; Z79.4 Long term (current) use of insulin; Z91.012 Allergy to eggs; Z87.891 Personal history of nicotine dependence; Z88.1 Allergy status to other antibiotic agents
CPT/HCPCS: 99213; G0463

== ENCOUNTER 2019-10-07 09:52 | Inpatient (IN) ==
[2019-10-07] MEDS ORDERED: NS 0.9% 1000 ml BAG 1,000 ML IV.FLUID IV ONE (09:58)
[2019-10-07] MEDS ORDERED: Ciprofloxacin 400mg IVPREMIX 400 MG/200 ML BAG IVPB ONE (10:03)
[2019-10-07] MEDS ORDERED: metroNIDAZOLE IV 500 MG/100ML 500 MG/100 ML BAG IVPB ONE (10:03)
[2019-10-07 10:22] LABS: Hematocrit 32 % (42-52); Hemoglobin 10.9 g/dL (14.0-18.0); Mean Corpuscular HGB Conc 34 g/dL (31-36); Mean Corpuscular Hemoglobin 31 pg (27-31); Mean Corpuscular Volume 91 fL (80-94); Mean Platelet Volume 7.1 fL (7.4-10.4); Platelet Count 403 10^3/uL (150-450); Red Blood Count 3.53 10^6 /uL (4.18-5.48); Red Cell Distribution Width 14 % (10-15); White Blood Count 24.5 10^3/uL (3.5-10.8)
[2019-10-07 10:34] LABS: Activated Partial Thrombo Time 31.5 seconds (26.0-38.0); INR 1.23 (0.82-1.09)
[2019-10-07 10:41] LABS: ALT 60 U/L (7-52); AST 60 U/L (13-39); Albumin 3.6 g/dL (3.2-5.2); Albumin/Globulin Ratio 0.9 (1-3); Alkaline Phosphatase 261 U/L (34-104); BUN/Creatinine Ratio 21.3 (8-20); Blood Urea Nitrogen 68 mg/dL (6-24); C Reactive Protein 325.69 mg/L (<8.01); CO2 Carbon Dioxide 19 mmol/L (22-32); Calcium 8.6 mg/dL (8.6-10.3); Chloride 96 mmol/L (101-111); EGFR African American 24.2 (>60); Globulin 4.2 g/dL (2-4); Glucose 165 mg/dL (70-100); Sodium 127 mmol/L (135-145); Total Protein 7.8 g/dL (6.4-8.9)
[2019-10-07 10:53] LABS: Troponin I 0.03 ng/mL (<0.03)
[2019-10-07 10:54] LABS: Anion Gap 12 mmol/L (2-11); Potassium 5.1 mmol/L (3.5-5.0)
[2019-10-07] MEDS ORDERED: Vancomycin 1,500 MG in NS 0.9% 250 ml 250 ML IVPB ONE (11:00)
[2019-10-07 11:04] LABS: ABS Basophils 0.1 10^3/ul (0-0.2); ABS Eosinophils 0.1 10^3/ul (0-0.6); ABS Lymphocytes 0.8 10^3/ul (1.0-4.8); ABS Monocytes 2.4 10^3/ul (0-0.8); ABS Neutrophils 21.2 10^3/ul (1.5-7.7); Eosinophil % 0.3 %; Lymphocyte % 3.1 %
[2019-10-07 11:33] LABS: Erythrocyte Sed Rate > 120 mm/Hr (0-19)
[2019-10-07] MEDS ORDERED: Ondansetron 4 mg VIAL 2 MG/ML 2 ml VIAL IV PRN (11:47)
[2019-10-07] MEDS ORDERED: Dextrose 50% Syringe 50 ml 25 GM/50 ML SYRINGE IV PUSH PRN (11:52)
[2019-10-07] MEDS ORDERED: Enoxaparin 30 MG/0.3 ML SYR SUBCUT SCH (13:00)
[2019-10-07] MEDS: Linezolid 600 MG IVPREMIX(*) 600 MG/300 ML BAG IVPB SCH (14:50)
[2019-10-07] MEDS: Lactated Ringers 1000 ml BAG 1,000 ML IV SCH (14:50)
[2019-10-07 18:08] LABS: BUN/Creatinine Ratio 25.3 (8-20); Blood Urea Nitrogen 62 mg/dL (6-24); CO2 Carbon Dioxide 19 mmol/L (22-32); Chloride 101 mmol/L (101-111); EGFR African American 32.9 (>60); EGFR Non-African American 27.2 (>60); Glucose 198 mg/dL (70-100); Sodium 128 mmol/L (135-145)
[2019-10-07 18:13] LABS: Anion Gap 8 mmol/L (2-11); Potassium 5.3 mmol/L (3.5-5.0); Troponin I 0.03 ng/mL (<0.03)
[2019-10-07] MEDS ORDERED: Patiromer POWDER 8.4 GM PAK PO ONE (18:44)
[2019-10-07 20:15] LABS: Urine Appearance Cloudy; Urine Bilirubin Negative (Negative); Urine Blood Negative (Negative); Urine Color Yellow; Urine Glucose 1+(50 mg/dL) (Negative); Urine Ketones Negative (Negative); Urine Nitrite Negative (Negative); Urine Protein 1+(30 mg/dL) (Negative); Urine Specific Gravity 1.015 (1.010-1.030); Urine Urobilinogen Positive (Negative)
[2019-10-07 20:20] LABS: Urine Bacteria Absent (Absent); Urine Red Blood Cell Trace(0-2/hpf) (Absent); Urine Squamous Epithelial Cell Present (Absent); Urine White Blood Cell Trace(0-5/hpf) (Absent)
[2019-10-07] MEDS: metroNIDAZOLE IV 500 MG/100ML 500 MG/100 ML BAG IVPB SCH (21:24)
[2019-10-07] MEDS: Insulin GLARGINE 100 un/ml 10 ml VIAL SUBCUT SCH (22:23)
[2019-10-07] MEDS: Aztreonam 1 GM in NS 0.9% 50 ML 50 ML IVPB SCH (23:54)
[2019-10-08] MEDS: Linezolid 600 MG IVPREMIX(*) 600 MG/300 ML BAG IVPB SCH ×2 (03:00→15:13)
[2019-10-08] MEDS: Lactated Ringers 1000 ml BAG 1,000 ML IV SCH ×3 (03:32→18:23)
[2019-10-08] MEDS: metroNIDAZOLE IV 500 MG/100ML 500 MG/100 ML BAG IVPB SCH ×3 (04:38→21:00)
[2019-10-08 08:29] LABS: Hematocrit 27 % (42-52); Hemoglobin 9.5 g/dL (14.0-18.0); Mean Corpuscular HGB Conc 35 g/dL (31-36); Mean Corpuscular Hemoglobin 31 pg (27-31); Mean Corpuscular Volume 90 fL (80-94); Mean Platelet Volume 7.4 fL (7.4-10.4); Platelet Count 328 10^3/uL (150-450); Red Blood Count 3.03 10^6 /uL (4.18-5.48); Red Cell Distribution Width 13 % (10-15); White Blood Count 18.8 10^3/uL (3.5-10.8)
[2019-10-08 08:45] LABS: Albumin/Globulin Ratio 0.8 (1-3); BUN/Creatinine Ratio 23.6 (8-20); EGFR African American 47.6 (>60); EGFR Non-African American 39.3 (>60); Globulin 3.6 g/dL (2-4); Magnesium 1.9 mg/dL (1.9-2.7); Total Bilirubin 0.6 mg/dL (0.2-1.0); Total Protein 6.6 g/dL (6.4-8.9)
[2019-10-08] MEDS ORDERED: Lactated Ringers 1000 ml BAG 1,000 ML IV SCH (09:00)
[2019-10-08 09:03] LABS: ABS Basophils 0.1 10^3/ul (0-0.2); ABS Eosinophils 0.1 10^3/ul (0-0.6); ABS Lymphocytes 0.7 10^3/ul (1.0-4.8); ABS Monocytes 2.2 10^3/ul (0-0.8); ABS Neutrophils 15.8 10^3/ul (1.5-7.7); Eosinophil % 0.5 %; Lymphocyte % 3.7 %
[2019-10-08] MEDS ORDERED: Famotidine IV 10 MG/ML 2 ml VIAL (20 mg) IV ONE (10:06)
[2019-10-08] MEDS ORDERED: Buffered Lidocaine 1% SYRIN 1 ml INTRADERM ONE (10:06)
[2019-10-08] MEDS ORDERED: NS 0.9% 1000 ml BAG 1,000 ML IV SCH (10:15)
[2019-10-08] MEDS: Aztreonam 1 GM in NS 0.9% 50 ML 50 ML IVPB SCH ×2 (11:35→22:16)
[2019-10-08] MEDS ORDERED: fentaNYL 100 mcg/2 ml 50 MCG/ML VIAL ONE (12:05)
[2019-10-08] MEDS ORDERED: Midazolam 2 mg/2 ml VIAL 1 mg/ml 2 ml VIAL (2 mg) ONE (12:05)
[2019-10-08] MEDS ORDERED: Famotidine IV 10 MG/ML 2 ml VIAL (20 mg) ONE (12:40)
[2019-10-08] MEDS ORDERED: Lidocaine 2% PF 5 ML VIAL ONE (12:46)
[2019-10-08] MEDS ORDERED: Propofol 10 MG/ML 20 ML BTL ONE (12:47)
[2019-10-08] MEDS ORDERED: DiMENhydriNATE IV 50 mg/ml 1 ml VIAL IV PUSH PRN (13:16)
[2019-10-08] MEDS ORDERED: Naloxone 0.4 mg VIAL 0.4 mg/ml 1 ml VIAL IV PRN (13:16)
[2019-10-08] MEDS ORDERED: Morphine 2 MG/ML SYRINGE IV PRN (13:19)
[2019-10-08] MEDS ORDERED: Lactated Ringers 1000 ml BAG 1,000 ML IV ONE (15:00)
[2019-10-08] MEDS ORDERED: NS 0.9% 1000 ML - LV 1,000 ML/1,000 ML IV.FLUID IV SCH (15:15)
[2019-10-08] MEDS: Insulin GLARGINE 100 un/ml 10 ml VIAL SUBCUT SCH (21:20)
[2019-10-09] MEDS: Linezolid 600 MG IVPREMIX(*) 600 MG/300 ML BAG IVPB SCH (02:27)
[2019-10-09] MEDS: metroNIDAZOLE IV 500 MG/100ML 500 MG/100 ML BAG IVPB SCH ×3 (03:45→21:11)
[2019-10-09] MEDS: Lactated Ringers 1000 ml BAG 1,000 ML IV SCH (03:53)
[2019-10-09] MEDS: Enoxaparin 30 MG/0.3 ML SYR SUBCUT SCH (08:08)
[2019-10-09 08:12] LABS: Hematocrit 29 % (42-52); Hemoglobin 10.2 g/dL (14.0-18.0); Mean Corpuscular HGB Conc 35 g/dL (31-36); Mean Corpuscular Hemoglobin 32 pg (27-31); Mean Corpuscular Volume 91 fL (80-94); Mean Platelet Volume 7.3 fL (7.4-10.4); Platelet Count 356 10^3/uL (150-450); Red Cell Distribution Width 14 % (10-15); White Blood Count 17.3 10^3/uL (3.5-10.8)
[2019-10-09 08:30] LABS: BUN/Creatinine Ratio 18.4 (8-20); C Reactive Protein 239.94 mg/L (<8.01); Calcium 8.1 mg/dL (8.6-10.3); EGFR African American 71.5 (>60); EGFR Non-African American 59.1 (>60); Potassium 4.8 mmol/L (3.5-5.0)
[2019-10-09] MEDS: Aztreonam 1 GM in NS 0.9% 50 ML 50 ML IVPB SCH ×2 (10:56→23:00)
[2019-10-09] MEDS: Insulin GLARGINE 100 un/ml 10 ml VIAL SUBCUT SCH (21:18)
[2019-10-10] MEDS: metroNIDAZOLE IV 500 MG/100ML 500 MG/100 ML BAG IVPB SCH ×3 (04:14→20:15)
[2019-10-10 05:13] LABS: Hematocrit 29 % (42-52); Hemoglobin 9.9 g/dL (14.0-18.0); Mean Corpuscular HGB Conc 34 g/dL (31-36); Mean Corpuscular Hemoglobin 31 pg (27-31); Mean Corpuscular Volume 91 fL (80-94); Mean Platelet Volume 6.9 fL (7.4-10.4); Platelet Count 372 10^3/uL (150-450); Red Cell Distribution Width 13 % (10-15); White Blood Count 14.7 10^3/uL (3.5-10.8)
[2019-10-10 05:28] LABS: BUN/Creatinine Ratio 18.3 (8-20); Blood Urea Nitrogen 19 mg/dL (6-24); CO2 Carbon Dioxide 25 mmol/L (22-32); Chloride 100 mmol/L (101-111); EGFR African American 88.4 (>60); EGFR Non-African American 73.1 (>60); Glucose 142 mg/dL (70-100); Sodium 131 mmol/L (135-145)
[2019-10-10 05:29] LABS: Anion Gap 6 mmol/L (2-11); Potassium 5.1 mmol/L (3.5-5.0)
[2019-10-10 07:32] LABS: % Iron Saturation 17 % (15-55); Iron 29 ug/dL (50-212); Total Iron Binding Capacity 174 mcg/dL (250-450); Transferrin 124 mg/dL (203-362); Unsaturated Iron Binding < 159 ug/dL
[2019-10-10 07:53] LABS: Ferritin 344.9 ng/mL (24-336)
[2019-10-10] MEDS: Aztreonam 1 GM in NS 0.9% 50 ML 50 ML IVPB SCH ×2 (09:22→21:47)
[2019-10-10] MEDS: Enoxaparin 30 MG/0.3 ML SYR SUBCUT SCH (09:22)
[2019-10-10] MEDS: Insulin GLARGINE 100 un/ml 10 ml VIAL SUBCUT SCH (21:46)
[2019-10-11] MEDS: metroNIDAZOLE IV 500 MG/100ML 500 MG/100 ML BAG IVPB SCH ×3 (03:52→21:46)
[2019-10-11 05:56] LABS: Hematocrit 29 % (42-52); Hemoglobin 9.9 g/dL (14.0-18.0); Mean Corpuscular HGB Conc 34 g/dL (31-36); Mean Corpuscular Hemoglobin 31 pg (27-31); Mean Corpuscular Volume 90 fL (80-94); Mean Platelet Volume 6.7 fL (7.4-10.4); Platelet Count 392 10^3/uL (150-450); Red Blood Count 3.21 10^6 /uL (4.18-5.48); Red Cell Distribution Width 13 % (10-15); White Blood Count 13.3 10^3/uL (3.5-10.8)
[2019-10-11 06:29] LABS: Calcium 7.9 mg/dL (8.6-10.3); Potassium 4.8 mmol/L (3.5-5.0)
[2019-10-11 06:35] LABS: BUN/Creatinine Ratio 17.7 (8-20); C Reactive Protein 133.92 mg/L (<8.01); EGFR Non-African American 80.2 (>60)
[2019-10-11] MEDS: Enoxaparin 40 MG/0.4 ML SYR SUBCUT SCH (08:34)
[2019-10-11] MEDS: Aztreonam 1 GM in NS 0.9% 50 ML 50 ML IVPB SCH ×2 (09:49→22:47)
[2019-10-11] MEDS: Insulin GLARGINE 100 un/ml 10 ml VIAL SUBCUT SCH (21:46)
[2019-10-12] MEDS: metroNIDAZOLE IV 500 MG/100ML 500 MG/100 ML BAG IVPB SCH ×3 (05:17→21:14)
[2019-10-12 05:38] LABS: Hematocrit 29 % (42-52); Hemoglobin 10.1 g/dL (14.0-18.0); Mean Corpuscular HGB Conc 35 g/dL (31-36); Mean Corpuscular Hemoglobin 32 pg (27-31); Mean Corpuscular Volume 90 fL (80-94); Platelet Count 408 10^3/uL (150-450); Red Blood Count 3.19 10^6 /uL (4.18-5.48); Red Cell Distribution Width 14 % (10-15); White Blood Count 13.6 10^3/uL (3.5-10.8)
[2019-10-12 07:02] LABS: Erythrocyte Sed Rate > 120 mm/Hr (0-19)
[2019-10-12] MEDS: Enoxaparin 40 MG/0.4 ML SYR SUBCUT SCH (09:02)
[2019-10-12] MEDS: Aztreonam 1 GM in NS 0.9% 50 ML 50 ML IVPB SCH ×2 (09:03→22:24)
[2019-10-12] MEDS: Insulin GLARGINE 100 un/ml 10 ml VIAL SUBCUT SCH (21:27)
[2019-10-13] MEDS: metroNIDAZOLE IV 500 MG/100ML 500 MG/100 ML BAG IVPB SCH ×3 (04:13→21:29)
[2019-10-13 07:06] LABS: Hematocrit 29 % (42-52); Mean Corpuscular HGB Conc 34 g/dL (31-36); Mean Corpuscular Hemoglobin 31 pg (27-31); Mean Corpuscular Volume 90 fL (80-94); Mean Platelet Volume 6.6 fL (7.4-10.4); Platelet Count 447 10^3/uL (150-450); Red Blood Count 3.24 10^6 /uL (4.18-5.48); Red Cell Distribution Width 13 % (10-15); White Blood Count 12.3 10^3/uL (3.5-10.8)
[2019-10-13 07:23] LABS: BUN/Creatinine Ratio 18.8 (8-20); Calcium 8.2 mg/dL (8.6-10.3); EGFR Non-African American 80.2 (>60); Potassium 4.9 mmol/L (3.5-5.0)
[2019-10-13 07:47] LABS: ABS Basophils 0.1 10^3/ul (0-0.2); ABS Eosinophils 0.3 10^3/ul (0-0.6); ABS Lymphocytes 1.3 10^3/ul (1.0-4.8); ABS Monocytes 1.6 10^3/ul (0-0.8); ABS Neutrophils 9.1 10^3/ul (1.5-7.7); Eosinophil % 2.1 %; Lymphocyte % 10.4 %
[2019-10-13] MEDS: Enoxaparin 40 MG/0.4 ML SYR SUBCUT SCH (08:14)
[2019-10-13] MEDS: Aztreonam 1 GM in NS 0.9% 50 ML 50 ML IVPB SCH ×2 (09:54→22:31)
[2019-10-13] MEDS: Insulin GLARGINE 100 un/ml 10 ml VIAL SUBCUT SCH (21:29)
[2019-10-14] MEDS: metroNIDAZOLE IV 500 MG/100ML 500 MG/100 ML BAG IVPB SCH ×3 (03:52→22:02)
[2019-10-14 07:07] LABS: Hematocrit 28 % (42-52); Hemoglobin 9.9 g/dL (14.0-18.0); Mean Corpuscular HGB Conc 35 g/dL (31-36); Mean Corpuscular Hemoglobin 32 pg (27-31); Mean Corpuscular Volume 90 fL (80-94); Mean Platelet Volume 6.7 fL (7.4-10.4); Platelet Count 459 10^3/uL (150-450); Red Blood Count 3.16 10^6 /uL (4.18-5.48); Red Cell Distribution Width 13 % (10-15); White Blood Count 10.2 10^3/uL (3.5-10.8)
[2019-10-14 07:21] LABS: BUN/Creatinine Ratio 18.3 (8-20); C Reactive Protein 59.18 mg/L (<8.01); Calcium 8.1 mg/dL (8.6-10.3); EGFR African American 100.6 (>60); EGFR Non-African American 83.2 (>60); Potassium 4.5 mmol/L (3.5-5.0)
[2019-10-14] MEDS: Enoxaparin 40 MG/0.4 ML SYR SUBCUT SCH (08:59)
[2019-10-14 09:03] LABS: ABS Basophils 0.1 10^3/ul (0-0.2); ABS Eosinophils 0.2 10^3/ul (0-0.6); ABS Lymphocytes 1.3 10^3/ul (1.0-4.8); ABS Monocytes 1.2 10^3/ul (0-0.8); ABS Neutrophils 7.4 10^3/ul (1.5-7.7); Eosinophil % 2.3 %; Lymphocyte % 13.1 %
[2019-10-14 09:12] LABS: Albumin 2.7 g/dL (3.2-5.2); Albumin/Globulin Ratio 0.6 (1-3); Globulin 4.2 g/dL (2-4); Indirect Bilirubin 0.2 mg/dL (0.3-1.0); Total Bilirubin 0.3 mg/dL (0.2-1.0); Total Protein 6.9 g/dL (6.4-8.9)
[2019-10-14] MEDS: Aztreonam 1 GM in NS 0.9% 50 ML 50 ML IVPB SCH (11:15)
[2019-10-14] MEDS ORDERED: Iodixanol (CONTRAST) 320 MG/ML 100 ML SDV IV ONE (13:21)
[2019-10-14] MEDS ORDERED: Vancomycin 1,500 MG in NS 0.9% 250 ml 250 ML IVPB ONE (13:30)
[2019-10-14] MEDS: Insulin GLARGINE 100 un/ml 10 ml VIAL SUBCUT SCH (22:02)
[2019-10-14] MEDS: Vancomycin 1,000 MG in NS 0.9% 250 ml 250 ML IV SCH (23:19)
[2019-10-15] MEDS: metroNIDAZOLE IV 500 MG/100ML 500 MG/100 ML BAG IVPB SCH ×3 (04:32→20:32)
[2019-10-15] MEDS: Vancomycin 1,000 MG in NS 0.9% 250 ml 250 ML IV SCH ×3 (05:54→22:41)
[2019-10-15 06:00] LABS: Hematocrit 29 % (42-52); Hemoglobin 10.1 g/dL (14.0-18.0); Mean Corpuscular HGB Conc 34 g/dL (31-36); Mean Corpuscular Hemoglobin 31 pg (27-31); Mean Corpuscular Volume 90 fL (80-94); Mean Platelet Volume 6.8 fL (7.4-10.4); Platelet Count 507 10^3/uL (150-450); Red Blood Count 3.26 10^6 /uL (4.18-5.48); Red Cell Distribution Width 14 % (10-15)
[2019-10-15 08:09] LABS: ABS Basophils 0.1 10^3/ul (0-0.2); ABS Eosinophils 0.2 10^3/ul (0-0.6); ABS Neutrophils 5.7 10^3/ul (1.5-7.7); Eosinophil % 2.4 %; Lymphocyte % 12.4 %
[2019-10-15] MEDS ORDERED: SitaGLIPtin 100 mg TAB (NF) PO SCH (09:00)
[2019-10-15] MEDS: Enoxaparin 40 MG/0.4 ML SYR SUBCUT SCH (09:17)
[2019-10-15] MEDS ORDERED: Vancomycin per Pharmacy 1 EA NOTE FOLLOW UP PRN (12:03)
[2019-10-15] MEDS ORDERED: Vancomycin Trough Check NOTE FOLLOW UP ONE (14:00)
[2019-10-15] MEDS ORDERED: Lidocaine 1% VIAL 10 MG/ML VIAL ONE (15:34)
[2019-10-15] MEDS ORDERED: Bupivacaine 0.5% SDV PF 30ML VIAL ONE (15:35)
[2019-10-15] MEDS ORDERED: Lidocaine 2% PF 5 ML VIAL ONE (16:09)
[2019-10-15] MEDS ORDERED: fentaNYL 100 mcg/2 ml 50 MCG/ML VIAL ONE (16:09)
[2019-10-15] MEDS ORDERED: Midazolam 2 mg/2 ml VIAL 1 mg/ml 2 ml VIAL (2 mg) ONE (16:09)
[2019-10-15] MEDS ORDERED: HYDROmorphone 1 MG/1 ML SYRINGE IV PRN (17:29)
[2019-10-15] MEDS ORDERED: fentaNYL 100 mcg/2 ml 50 MCG/ML VIAL IV PRN (17:29)
[2019-10-15] MEDS ORDERED: Naloxone 0.4 mg VIAL 0.4 mg/ml 1 ml VIAL IV PRN (17:29)
[2019-10-15] MEDS: Insulin GLARGINE 100 un/ml 10 ml VIAL SUBCUT SCH (23:54)
[2019-10-16] MEDS: metroNIDAZOLE IV 500 MG/100ML 500 MG/100 ML BAG IVPB SCH ×3 (03:43→19:44)
[2019-10-16 05:31] LABS: ABS Basophils 0.1 10^3/ul (0-0.2); ABS Eosinophils 0.2 10^3/ul (0-0.6); ABS Lymphocytes 1.2 10^3/ul (1.0-4.8); ABS Neutrophils 6.8 10^3/ul (1.5-7.7); Eosinophil % 1.9 %; Hematocrit 28 % (42-52); Hemoglobin 9.8 g/dL (14.0-18.0); Lymphocyte % 12.4 %; Mean Corpuscular HGB Conc 35 g/dL (31-36); Mean Corpuscular Hemoglobin 32 pg (27-31); Mean Corpuscular Volume 90 fL (80-94); Mean Platelet Volume 6.7 fL (7.4-10.4); Platelet Count 506 10^3/uL (150-450); Red Blood Count 3.07 10^6 /uL (4.18-5.48); Red Cell Distribution Width 14 % (10-15); White Blood Count 9.3 10^3/uL (3.5-10.8)
[2019-10-16 05:57] LABS: Calcium 7.9 mg/dL (8.6-10.3); Potassium 4.2 mmol/L (3.5-5.0)
[2019-10-16 06:03] LABS: BUN/Creatinine Ratio 15.6 (8-20); EGFR Non-African American 80.2 (>60)
[2019-10-16] MEDS: Vancomycin 1,000 MG in NS 0.9% 250 ml 250 ML IV SCH ×3 (06:13→22:35)
[2019-10-16] MEDS: Enoxaparin 40 MG/0.4 ML SYR SUBCUT SCH (08:36)
[2019-10-16] MEDS: Insulin GLARGINE 100 un/ml 10 ml VIAL SUBCUT SCH (21:43)
[2019-10-17] MEDS: metroNIDAZOLE IV 500 MG/100ML 500 MG/100 ML BAG IVPB SCH ×2 (04:05→12:36)
[2019-10-17 06:00] LABS: EGFR African American 101.9 (>60); EGFR Non-African American 84.2 (>60)
[2019-10-17] MEDS ORDERED: Vancomycin Trough Check NOTE FOLLOW UP ONE (06:00)
[2019-10-17] MEDS: Vancomycin 1,000 MG in NS 0.9% 250 ml 250 ML IV SCH ×3 (06:06→22:31)
[2019-10-17] MEDS: Enoxaparin 40 MG/0.4 ML SYR SUBCUT SCH (08:29)
[2019-10-17] MEDS: Insulin GLARGINE 100 un/ml 10 ml VIAL SUBCUT SCH (22:28)
[2019-10-18] MEDS: Vancomycin 1,000 MG in NS 0.9% 250 ml 250 ML IV SCH ×3 (05:50→21:54)
[2019-10-18] MEDS ORDERED: Vancomycin Trough Check NOTE FOLLOW UP ONE (06:00)
[2019-10-18] MEDS: Enoxaparin 40 MG/0.4 ML SYR SUBCUT SCH (09:05)
[2019-10-18] MEDS: Insulin GLARGINE 100 un/ml 10 ml VIAL SUBCUT SCH (22:13)
[2019-10-19] MEDS ORDERED: Vancomycin Trough Check NOTE FOLLOW UP ONE (06:00)
[2019-10-19 06:12] LABS: EGFR African American 103.2 (>60); EGFR Non-African American 85.3 (>60)
[2019-10-19 06:30] LABS: Vancomycin Trough 19.3 mcg/mL
[2019-10-19] MEDS: Vancomycin 1,000 MG in NS 0.9% 250 ml 250 ML IV SCH ×3 (08:00→21:49)
[2019-10-19] MEDS: Enoxaparin 40 MG/0.4 ML SYR SUBCUT SCH (09:11)
[2019-10-19] MEDS: Insulin GLARGINE 100 un/ml 10 ml VIAL SUBCUT SCH (21:49)
[2019-10-20] MEDS: Vancomycin 1,000 MG in NS 0.9% 250 ml 250 ML IV SCH ×3 (06:02→21:30)
[2019-10-20] MEDS: Enoxaparin 40 MG/0.4 ML SYR SUBCUT SCH (09:36)
[2019-10-20] MEDS: Insulin GLARGINE 100 un/ml 10 ml VIAL SUBCUT SCH (21:35)
[2019-10-21] MEDS ORDERED: Vancomycin Trough Check NOTE FOLLOW UP ONE (06:00)
[2019-10-21 06:14] LABS: ABS Basophils 0.1 10^3/ul (0-0.2); ABS Eosinophils 0.1 10^3/ul (0-0.6); ABS Lymphocytes 1.5 10^3/ul (1.0-4.8); ABS Monocytes 0.6 10^3/ul (0-0.8); ABS Neutrophils 3.6 10^3/ul (1.5-7.7); Eosinophil % 2.1 %; Hematocrit 28 % (42-52); Hemoglobin 10.1 g/dL (14.0-18.0); Lymphocyte % 24.5 %; Mean Corpuscular HGB Conc 36 g/dL (31-36); Mean Corpuscular Hemoglobin 32 pg (27-31); Mean Corpuscular Volume 89 fL (80-94); Mean Platelet Volume 6.7 fL (7.4-10.4); Platelet Count 463 10^3/uL (150-450); Red Blood Count 3.15 10^6 /uL (4.18-5.48); Red Cell Distribution Width 14 % (10-15)
[2019-10-21 06:34] LABS: Albumin 2.9 g/dL (3.2-5.2); Albumin/Globulin Ratio 0.7 (1-3); BUN/Creatinine Ratio 20.8 (8-20); C Reactive Protein 3.7 mg/L (<8.01); Calcium 8.7 mg/dL (8.6-10.3); EGFR African American 91.5 (>60); EGFR Non-African American 75.6 (>60); Globulin 3.9 g/dL (2-4); Potassium 4.1 mmol/L (3.5-5.0); Total Bilirubin 0.3 mg/dL (0.2-1.0); Total Protein 6.8 g/dL (6.4-8.9)
[2019-10-21 06:42] LABS: Vancomycin Trough 22.5 mcg/mL
[2019-10-21] MEDS: Vancomycin 1,000 MG in NS 0.9% 250 ml 250 ML IV SCH (08:16)
[2019-10-21] MEDS: Enoxaparin 40 MG/0.4 ML SYR SUBCUT SCH (09:24)
[2019-10-21] MEDS ORDERED: Vancomycin(*) 1,250 MG IV Q12H IVPB SCH (12:00)
[2019-10-21 13:51] VITALS: BP 128/72
[2019-10-23] MEDS ORDERED: Vancomycin Trough Check NOTE FOLLOW UP ONE (11:30)
== END 2019-10-21 14:00 | DRG 853 ==
LOC: EDACCT# → ED 09:52 → MED 12:39
PROVIDERS: ADMIT Internal Medicine; ATTEND Internal Medicine

== ENCOUNTER 2020-10-13 17:01 | Inpatient (IN) ==
[2020-10-13 22:09] LABS: ABS Basophils 0.1 10^3/ul (0-0.2); ABS Eosinophils 0.1 10^3/ul (0-0.6); ABS Lymphocytes 0.9 10^3/ul (1.0-4.8); ABS Monocytes 1.3 10^3/ul (0-0.8); ABS Neutrophils 8.3 10^3/ul (1.5-7.7); Eosinophil % 0.7 %; Hematocrit 28 % (42-52); Hemoglobin 9.8 g/dL (14.0-18.0); Lymphocyte % 8.7 %; Mean Corpuscular HGB Conc 35 g/dL (31-36); Mean Corpuscular Hemoglobin 31 pg (27-31); Mean Corpuscular Volume 88 fL (80-94); Mean Platelet Volume 7.1 fL (7.4-10.4); Platelet Count 426 10^3/uL (150-450); Red Blood Count 3.18 10^6 /uL (4.18-5.48); Red Cell Distribution Width 14 % (10-15); White Blood Count 10.7 10^3/uL (3.5-10.8)
[2020-10-13 22:24] LABS: C Reactive Protein 225.4 mg/L (<8.01); EGFR African American 35.1 (>60)
[2020-10-13 22:25] LABS: Potassium 5.2 mmol/L (3.5-5.0)
[2020-10-13] MEDS ORDERED: NS 0.9% 1000 ml BAG 1,000 ML IV ONE (22:26)
[2020-10-13] MEDS ORDERED: metroNIDAZOLE IV 500 MG/100ML 500 MG/100 ML BAG IVPB ONE (22:37)
[2020-10-13] MEDS ORDERED: Linezolid 600 MG IVPREMIX(*) 600 MG/300 ML BAG IVPB ONE (22:38)
[2020-10-13] MEDS ORDERED: NS 0.9% 50 ML 50 ML ONE (23:18)
[2020-10-14] MEDS ORDERED: Aztreonam 1 GM in NS 0.9% 50 ML 50 ML IV SCH
[2020-10-14] MEDS ORDERED: Insulin GLARGINE 100 un/ml 10 ml VIAL SUBCUT SCH (01:00)
[2020-10-14] MEDS ORDERED: NS 0.9% 1000 ml BAG 1,000 ML IV ONE (01:03)
[2020-10-14] MEDS ORDERED: NS 0.9% 1000 ml BAG 1,000 ML IV SCH (01:15)
[2020-10-14] MEDS ORDERED: Acetaminophen IV 1 GM/100ML 100 ML IV PRN (01:16)
[2020-10-14] MEDS ORDERED: Dextrose 50% Syringe 50 ml 25 GM/50 ML SYRINGE IV PUSH PRN (01:58)
[2020-10-14] MEDS ORDERED: Ondansetron ODT 4 mg TAB 4 MG TAB SL PRN (02:45)
[2020-10-14] MEDS: NS 0.9% 1000 ml BAG 1,000 ML IV SCH ×2 (07:50→20:07)
[2020-10-14] MEDS: metroNIDAZOLE IV 500 MG/100ML 500 MG/100 ML BAG IVPB SCH ×2 (08:50→16:30)
[2020-10-14 09:08] LABS: ABS Basophils 0.1 10^3/ul (0-0.2); ABS Eosinophils 0.1 10^3/ul (0-0.6); ABS Lymphocytes 0.6 10^3/ul (1.0-4.8); ABS Monocytes 1.1 10^3/ul (0-0.8); Hematocrit 26 % (42-52); Hemoglobin 8.8 g/dL (14.0-18.0); Lymphocyte % 6.5 %; Mean Corpuscular HGB Conc 34 g/dL (31-36); Mean Corpuscular Hemoglobin 30 pg (27-31); Mean Corpuscular Volume 88 fL (80-94); Mean Platelet Volume 7.2 fL (7.4-10.4); Platelet Count 383 10^3/uL (150-450); Red Blood Count 2.99 10^6 /uL (4.18-5.48); Red Cell Distribution Width 14 % (10-15); White Blood Count 8.8 10^3/uL (3.5-10.8)
[2020-10-14 09:24] LABS: Albumin 2.9 g/dL (3.2-5.2); Albumin/Globulin Ratio 0.6 (1-3); Calcium 8.1 mg/dL (8.6-10.3); Direct Bilirubin 0.1 mg/dL (0.03-0.18); EGFR African American 58.2 (>60); EGFR Non-African American 48.1 (>60); Globulin 4.8 g/dL (2-4); Indirect Bilirubin 0.4 mg/dL (0.3-1.0); Potassium 4.5 mmol/L (3.5-5.0); Total Bilirubin 0.5 mg/dL (0.2-1.0); Total Protein 7.7 g/dL (6.4-8.9)
[2020-10-14 09:30] LABS: Activated Partial Thrombo Time 44.4 seconds (26.0-38.0); INR 1.36 (0.86-1.15)
[2020-10-14] MEDS: Aztreonam 1 GM in NS 0.9% 50 ML 50 ML IV SCH ×2 (11:21→18:09)
[2020-10-14] MEDS ORDERED: Linezolid 600 MG IVPREMIX(*) 600 MG/300 ML BAG IVPB SCH (12:00)
[2020-10-14] MEDS ORDERED: Gadoteridol (CONTRAST) 279.3 MG/ML 10 ML IV ONE (12:12)
[2020-10-15] MEDS: metroNIDAZOLE IV 500 MG/100ML 500 MG/100 ML BAG IVPB SCH ×3 (01:03→17:50)
[2020-10-15] MEDS: Aztreonam 1 GM in NS 0.9% 50 ML 50 ML IV SCH ×3 (02:23→18:59)
[2020-10-15] MEDS: NS 0.9% 1000 ml BAG 1,000 ML IV SCH ×2 (03:57→15:35)
[2020-10-15 06:20] LABS: Hematocrit 25 % (42-52); Hemoglobin 8.7 g/dL (14.0-18.0); Mean Corpuscular HGB Conc 35 g/dL (31-36); Mean Corpuscular Hemoglobin 30 pg (27-31); Mean Corpuscular Volume 86 fL (80-94); Mean Platelet Volume 6.9 fL (7.4-10.4); Platelet Count 352 10^3/uL (150-450); Red Blood Count 2.89 10^6 /uL (4.18-5.48); Red Cell Distribution Width 13 % (10-15); White Blood Count 8.6 10^3/uL (3.5-10.8)
[2020-10-15 06:26] LABS: INR 1.44 (0.86-1.15)
[2020-10-15 06:47] LABS: C Reactive Protein 246.86 mg/L (<8.01); Calcium 7.9 mg/dL (8.6-10.3); EGFR African American 77.7 (>60); EGFR Non-African American 64.2 (>60); Potassium 4.5 mmol/L (3.5-5.0)
[2020-10-15] MEDS: Linezolid 600 MG IVPREMIX(*) 600 MG/300 ML BAG IVPB SCH ×2 (07:38→20:47)
[2020-10-15] MEDS ORDERED: Insulin GLARGINE 100 un/ml 10 ml VIAL SUBCUT SCH (08:00)
[2020-10-15] MEDS: Insulin GLARGINE 100 un/ml 10 ml VIAL SUBCUT SCH ×2 (08:35→22:26)
[2020-10-15] MEDS ORDERED: Bupivacaine 0.5% SDV PF 30ML VIAL ONE (11:52)
[2020-10-15] MEDS ORDERED: Buffered Lidocaine 1% SYRIN 1 ml INTRADERM ONE (11:55)
[2020-10-15] MEDS ORDERED: Lactated Ringers 1000 ml BAG 1,000 ML IV SCH (12:00)
[2020-10-15] MEDS ORDERED: fentaNYL 100 mcg/2 ml 50 MCG/ML VIAL ONE (12:08)
[2020-10-15] MEDS ORDERED: Propofol 10 MG/ML 20 ML BTL ONE (12:08)
[2020-10-15] MEDS ORDERED: Midazolam 2 mg/2 ml VIAL 1 mg/ml 2 ml VIAL (2 mg) ONE (12:08)
[2020-10-15] MEDS ORDERED: Lidocaine 2% PF 5 ML VIAL ONE (12:08)
[2020-10-15] MEDS ORDERED: ceFAZolin 2 GM in NS PREMIX 2 GM/100 ML BAG IVPB ONE (12:12)
[2020-10-15] MEDS ORDERED: Ketamine HCL 50 mg/ml 10 ml VIAL (500 MG) ONE (12:48)
[2020-10-15] MEDS ORDERED: HYDROmorphone 1 MG/1 ML SYRINGE ONE ×2 (12:49→14:19)
[2020-10-15] MEDS ORDERED: Phenylephrine 40 mcg/mL 10mL (400mcg) SYRINGE ONE (12:52)
[2020-10-15] MEDS ORDERED: Ondansetron 4 mg VIAL 2 MG/ML 2 ml VIAL ONE (13:37)
[2020-10-15] MEDS ORDERED: diPHENhydraMINE IV 50 MG/ML 1 ml VIAL (BENADRYL) IV PRN (14:03)
[2020-10-15] MEDS ORDERED: Prochlorperazine 5 mg/ml 2 ml VIAL (10 mg) IV PRN (14:03)
[2020-10-15] MEDS ORDERED: Naloxone 0.4 mg VIAL 0.4 mg/ml 1 ml VIAL IV PRN (14:03)
[2020-10-15] MEDS: HYDROmorphone 1 MG/1 ML SYRINGE IV PRN ×4 (14:24→14:50)
[2020-10-15] MEDS: Morphine 2 MG/ML SYRINGE IV PRN (22:32)
[2020-10-16] MEDS: Morphine 2 MG/ML SYRINGE IV PRN ×4 (00:56→16:54)
[2020-10-16] MEDS: metroNIDAZOLE IV 500 MG/100ML 500 MG/100 ML BAG IVPB SCH ×3 (00:58→16:59)
[2020-10-16] MEDS: Aztreonam 1 GM in NS 0.9% 50 ML 50 ML IV SCH ×2 (02:25→10:42)
[2020-10-16] MEDS: NS 0.9% 1000 ml BAG 1,000 ML IV SCH (03:34)
[2020-10-16 06:00] LABS: ABS Eosinophils 0.3 10^3/ul (0-0.6); ABS Lymphocytes 0.9 10^3/ul (1.0-4.8); ABS Monocytes 0.9 10^3/ul (0-0.8); Eosinophil % 3.6 %; Hematocrit 25 % (42-52); Hemoglobin 8.7 g/dL (14.0-18.0); Lymphocyte % 10.6 %; Mean Corpuscular HGB Conc 35 g/dL (31-36); Mean Corpuscular Hemoglobin 30 pg (27-31); Mean Corpuscular Volume 87 fL (80-94); Mean Platelet Volume 6.7 fL (7.4-10.4); Platelet Count 389 10^3/uL (150-450); Red Blood Count 2.88 10^6 /uL (4.18-5.48); Red Cell Distribution Width 14 % (10-15)
[2020-10-16 06:10] LABS: Calcium 7.8 mg/dL (8.6-10.3); Potassium 4.8 mmol/L (3.5-5.0)
[2020-10-16 06:16] LABS: EGFR African American 76.9 (>60); EGFR Non-African American 63.6 (>60)
[2020-10-16] MEDS: Linezolid 600 MG IVPREMIX(*) 600 MG/300 ML BAG IVPB SCH ×2 (07:41→19:29)
[2020-10-16] MEDS: Enoxaparin 40 MG/0.4 ML SYR SUBCUT SCH (11:34)
[2020-10-17] MEDS: NS 0.9% 1000 ml BAG 1,000 ML IV SCH (00:38)
[2020-10-17] MEDS: metroNIDAZOLE IV 500 MG/100ML 500 MG/100 ML BAG IVPB SCH ×3 (00:38→16:57)
[2020-10-17 05:00] LABS: ABS Basophils 0.1 10^3/ul (0-0.2); ABS Eosinophils 0.2 10^3/ul (0-0.6); ABS Lymphocytes 0.8 10^3/ul (1.0-4.8); ABS Monocytes 0.8 10^3/ul (0-0.8); ABS Neutrophils 4.3 10^3/ul (1.5-7.7); Eosinophil % 3.9 %; Hematocrit 23 % (42-52); Hemoglobin 8.1 g/dL (14.0-18.0); Lymphocyte % 13.4 %; Mean Corpuscular HGB Conc 35 g/dL (31-36); Mean Corpuscular Hemoglobin 30 pg (27-31); Mean Corpuscular Volume 88 fL (80-94); Mean Platelet Volume 6.9 fL (7.4-10.4); Platelet Count 363 10^3/uL (150-450); Red Blood Count 2.65 10^6 /uL (4.18-5.48); Red Cell Distribution Width 14 % (10-15); White Blood Count 6.2 10^3/uL (3.5-10.8)
[2020-10-17 05:16] LABS: Calcium 7.5 mg/dL (8.6-10.3); EGFR African American 82.6 (>60); EGFR Non-African American 68.3 (>60); Magnesium 1.4 mg/dL (1.9-2.7); Potassium 4.7 mmol/L (3.5-5.0)
[2020-10-17] MEDS ORDERED: Magnesium Sulfate 2 gm BAG 2 GM/50 ML BAG IVPB ONE (05:55)
[2020-10-17] MEDS ORDERED: Calcium Gluconate 2 GM in NS 0.9% 100 ml BAG 100 ML IV ONE (07:30)
[2020-10-17] MEDS: Linezolid 600 MG IVPREMIX(*) 600 MG/300 ML BAG IVPB SCH ×2 (07:31→19:55)
[2020-10-17] MEDS: Enoxaparin 40 MG/0.4 ML SYR SUBCUT SCH (13:04)
[2020-10-18] MEDS: metroNIDAZOLE IV 500 MG/100ML 500 MG/100 ML BAG IVPB SCH ×3 (01:11→16:56)
[2020-10-18 05:15] LABS: ABS Eosinophils 0.3 10^3/ul (0-0.6); ABS Lymphocytes 0.9 10^3/ul (1.0-4.8); ABS Monocytes 0.7 10^3/ul (0-0.8); ABS Neutrophils 3.7 10^3/ul (1.5-7.7); Eosinophil % 4.5 %; Hematocrit 25 % (42-52); Hemoglobin 8.6 g/dL (14.0-18.0); Lymphocyte % 16.5 %; Mean Corpuscular HGB Conc 34 g/dL (31-36); Mean Corpuscular Hemoglobin 30 pg (27-31); Mean Corpuscular Volume 87 fL (80-94); Mean Platelet Volume 6.3 fL (7.4-10.4); Platelet Count 389 10^3/uL (150-450); Red Blood Count 2.91 10^6 /uL (4.18-5.48); Red Cell Distribution Width 14 % (10-15); White Blood Count 5.7 10^3/uL (3.5-10.8)
[2020-10-18] MEDS ORDERED: Enalaprilat IV 1.25 mg/ml 1 ml VIAL (1.25 MG) IV ONE (05:26)
[2020-10-18 05:40] LABS: Albumin 2.5 g/dL (3.2-5.2); Albumin/Globulin Ratio 0.6 (1-3); EGFR African American 90.1 (>60); EGFR Non-African American 74.5 (>60); Globulin 4.4 g/dL (2-4); Magnesium 1.7 mg/dL (1.9-2.7); Potassium 4.7 mmol/L (3.5-5.0); Total Bilirubin 0.2 mg/dL (0.2-1.0); Total Protein 6.9 g/dL (6.4-8.9)
[2020-10-18] MEDS ORDERED: Magnesium Sulfate 2 gm BAG 2 GM/50 ML BAG IVPB ONE (06:19)
[2020-10-18] MEDS: Linezolid 600 MG IVPREMIX(*) 600 MG/300 ML BAG IVPB SCH ×2 (08:00→20:49)
[2020-10-18] MEDS: Enoxaparin 40 MG/0.4 ML SYR SUBCUT SCH (12:12)
[2020-10-19] MEDS: metroNIDAZOLE IV 500 MG/100ML 500 MG/100 ML BAG IVPB SCH ×3 (02:08→18:19)
[2020-10-19 07:03] LABS: ABS Basophils 0.1 10^3/ul (0-0.2); ABS Eosinophils 0.3 10^3/ul (0-0.6); ABS Lymphocytes 0.8 10^3/ul (1.0-4.8); ABS Monocytes 0.6 10^3/ul (0-0.8); ABS Neutrophils 3.5 10^3/ul (1.5-7.7); Hematocrit 26 % (42-52); Mean Corpuscular HGB Conc 35 g/dL (31-36); Mean Corpuscular Hemoglobin 30 pg (27-31); Mean Corpuscular Volume 85 fL (80-94); Mean Platelet Volume 6.7 fL (7.4-10.4); Nucleated Red Blood Cells % 0.1; Platelet Count 441 10^3/uL (150-450); Red Blood Count 3.05 10^6 /uL (4.18-5.48); Red Cell Distribution Width 14 % (10-15); White Blood Count 5.2 10^3/uL (3.5-10.8)
[2020-10-19 07:22] LABS: Calcium 8.3 mg/dL (8.6-10.3); EGFR African American 84.4 (>60); EGFR Non-African American 69.7 (>60); Magnesium 1.8 mg/dL (1.9-2.7); Potassium 4.5 mmol/L (3.5-5.0)
[2020-10-19] MEDS ORDERED: Magnesium Sulfate 2 gm BAG 2 GM/50 ML BAG IVPB ONE (07:38)
[2020-10-19] MEDS: Linezolid 600 MG IVPREMIX(*) 600 MG/300 ML BAG IVPB SCH ×2 (08:14→19:48)
[2020-10-19] MEDS ORDERED: Polyethylene Glycol 3350 17 GM PACKET PO PRN ×2 (08:55→09:50)
[2020-10-19] MEDS ORDERED: Senna TAB 8.6 mg TAB PO PRN (09:50)
[2020-10-19] MEDS ORDERED: Magnesium Hydroxide LIQ 30 ML UDC PO PRN (09:50)
[2020-10-19 10:59] LABS: C Reactive Protein 91.82 mg/L (<8.01)
[2020-10-19] MEDS: Enoxaparin 40 MG/0.4 ML SYR SUBCUT SCH (13:05)
[2020-10-19] MEDS: Magnesium Hydroxide LIQ 30 ML UDC PO SCH ×2 (13:05→21:13)
[2020-10-19] MEDS ORDERED: Insulin GLARGINE 100 un/ml 10 ml VIAL SUBCUT SCH (21:00)
[2020-10-20] MEDS: metroNIDAZOLE IV 500 MG/100ML 500 MG/100 ML BAG IVPB SCH (00:50)
[2020-10-20 08:02] VITALS: BP 157/88
[2020-10-20] MEDS: Magnesium Hydroxide LIQ 30 ML UDC PO SCH (08:24)
[2020-10-20] MEDS ORDERED: Amoxicillin/Clavul 875/125 TAB (Augmentin 875 tab) PO SCH (09:00)
[2020-10-20] MEDS ORDERED: Insulin GLARGINE 100 un/ml 10 ml VIAL SUBCUT SCH (21:00)
== END 2020-10-20 08:49 | DRG 617 ==
LOC: ED 17:01 → MED 10-14 00:02 → SSU 10-15 15:07
PROVIDERS: ADMIT Internal Medicine; ATTEND Student in an Organized Health Care Education/Training Program

== ENCOUNTER 2020-10-20 08:16 | Inpatient (IN) ==
[2020-10-20] MEDS ORDERED: Senna TAB 8.6 mg TAB PO PRN (11:53)
[2020-10-20] MEDS ORDERED: Dextrose 50% Syringe 50 ml 25 GM/50 ML SYRINGE IV PUSH PRN (12:03)
[2020-10-20] MEDS ORDERED: Magnesium Hydroxide LIQ 30 ML UDC PO PRN (12:11)
[2020-10-20] MEDS: Enoxaparin 40 MG/0.4 ML SYR SUBCUT SCH (12:19)
[2020-10-20] MEDS: Insulin GLARGINE 100 un/ml 10 ml VIAL SUBCUT SCH (20:25)
[2020-10-20] MEDS: Amoxicillin/Clavul 875/125 TAB (Augmentin 875 tab) PO SCH (20:25)
[2020-10-21 07:15] LABS: ABS Eosinophils 0.3 10^3/ul (0-0.6); ABS Lymphocytes 1.3 10^3/ul (1.0-4.8); ABS Monocytes 0.7 10^3/ul (0-0.8); ABS Neutrophils 3.2 10^3/ul (1.5-7.7); Hematocrit 27 % (42-52); Hemoglobin 9.5 g/dL (14.0-18.0); Mean Corpuscular HGB Conc 35 g/dL (31-36); Mean Corpuscular Hemoglobin 30 pg (27-31); Mean Corpuscular Volume 85 fL (80-94); Mean Platelet Volume 6.7 fL (7.4-10.4); Nucleated Red Blood Cells % 0.1; Platelet Count 431 10^3/uL (150-450); Red Blood Count 3.21 10^6 /uL (4.18-5.48); Red Cell Distribution Width 14 % (10-15); White Blood Count 5.5 10^3/uL (3.5-10.8)
[2020-10-21 07:28] LABS: Albumin 2.6 g/dL (3.2-5.2); Albumin/Globulin Ratio 0.6 (1-3); Calcium 8.3 mg/dL (8.6-10.3); EGFR African American 92.2 (>60); EGFR Non-African American 76.2 (>60); Globulin 4.1 g/dL (2-4); Potassium 4.4 mmol/L (3.5-5.0); Total Bilirubin 0.2 mg/dL (0.2-1.0); Total Protein 6.7 g/dL (6.4-8.9)
[2020-10-21] MEDS: Amoxicillin/Clavul 875/125 TAB (Augmentin 875 tab) PO SCH ×2 (07:37→22:53)
[2020-10-21] MEDS: Enoxaparin 40 MG/0.4 ML SYR SUBCUT SCH (12:29)
[2020-10-21] MEDS: Insulin GLARGINE 100 un/ml 10 ml VIAL SUBCUT SCH (22:54)
[2020-10-22] MEDS: Amoxicillin/Clavul 875/125 TAB (Augmentin 875 tab) PO SCH ×2 (10:14→20:57)
[2020-10-22] MEDS: Enoxaparin 40 MG/0.4 ML SYR SUBCUT SCH (10:15)
[2020-10-22] MEDS: Insulin GLARGINE 100 un/ml 10 ml VIAL SUBCUT SCH (21:17)
[2020-10-23] MEDS: Amoxicillin/Clavul 875/125 TAB (Augmentin 875 tab) PO SCH ×2 (09:21→22:30)
[2020-10-23] MEDS: Enoxaparin 40 MG/0.4 ML SYR SUBCUT SCH (13:13)
[2020-10-23] MEDS: Insulin GLARGINE 100 un/ml 10 ml VIAL SUBCUT SCH (22:30)
[2020-10-24] MEDS: Amoxicillin/Clavul 875/125 TAB (Augmentin 875 tab) PO SCH ×2 (07:57→19:49)
[2020-10-24] MEDS: Enoxaparin 40 MG/0.4 ML SYR SUBCUT SCH (12:18)
[2020-10-24] MEDS: Insulin GLARGINE 100 un/ml 10 ml VIAL SUBCUT SCH (21:44)
[2020-10-25] MEDS: Amoxicillin/Clavul 875/125 TAB (Augmentin 875 tab) PO SCH ×2 (08:21→21:30)
[2020-10-25] MEDS: Enoxaparin 40 MG/0.4 ML SYR SUBCUT SCH (12:36)
[2020-10-25] MEDS: Insulin GLARGINE 100 un/ml 10 ml VIAL SUBCUT SCH (21:30)
[2020-10-26] MEDS: Amoxicillin/Clavul 875/125 TAB (Augmentin 875 tab) PO SCH ×2 (10:10→20:55)
[2020-10-26] MEDS: Enoxaparin 40 MG/0.4 ML SYR SUBCUT SCH (12:37)
[2020-10-26] MEDS: Insulin GLARGINE 100 un/ml 10 ml VIAL SUBCUT SCH (20:55)
[2020-10-27] MEDS: Amoxicillin/Clavul 875/125 TAB (Augmentin 875 tab) PO SCH ×2 (08:53→20:58)
[2020-10-27] MEDS: Enoxaparin 40 MG/0.4 ML SYR SUBCUT SCH (14:10)
[2020-10-27] MEDS: Insulin GLARGINE 100 un/ml 10 ml VIAL SUBCUT SCH (20:59)
[2020-10-28 05:49] LABS: ABS Basophils 0.1 10^3/ul (0-0.2); ABS Eosinophils 0.2 10^3/ul (0-0.6); ABS Lymphocytes 1.5 10^3/ul (1.0-4.8); ABS Monocytes 0.4 10^3/ul (0-0.8); ABS Neutrophils 1.9 10^3/ul (1.5-7.7); Eosinophil % 4.3 %; Hematocrit 30 % (42-52); Hemoglobin 10.1 g/dL (14.0-18.0); Lymphocyte % 37.5 %; Mean Corpuscular HGB Conc 34 g/dL (31-36); Mean Corpuscular Hemoglobin 30 pg (27-31); Mean Corpuscular Volume 87 fL (80-94); Mean Platelet Volume 6.8 fL (7.4-10.4); Platelet Count 376 10^3/uL (150-450); Red Blood Count 3.39 10^6 /uL (4.18-5.48); Red Cell Distribution Width 16 % (10-15); White Blood Count 4.1 10^3/uL (3.5-10.8)
[2020-10-28 06:03] LABS: Albumin/Globulin Ratio 0.8 (1-3); Calcium 8.4 mg/dL (8.6-10.3); EGFR African American 74.7 (>60); EGFR Non-African American 61.8 (>60); Potassium 4.7 mmol/L (3.5-5.0); Total Bilirubin 0.3 mg/dL (0.2-1.0)
[2020-10-28] MEDS: Amoxicillin/Clavul 875/125 TAB (Augmentin 875 tab) PO SCH ×2 (09:08→21:38)
[2020-10-28] MEDS: Enoxaparin 40 MG/0.4 ML SYR SUBCUT SCH (14:41)
[2020-10-28] MEDS: Insulin GLARGINE 100 un/ml 10 ml VIAL SUBCUT SCH (21:39)
[2020-10-29] MEDS: Amoxicillin/Clavul 875/125 TAB (Augmentin 875 tab) PO SCH ×2 (07:30→21:34)
[2020-10-29] MEDS: Enoxaparin 40 MG/0.4 ML SYR SUBCUT SCH (13:30)
[2020-10-29] MEDS: Insulin GLARGINE 100 un/ml 10 ml VIAL SUBCUT SCH (22:52)
[2020-10-30] MEDS: Amoxicillin/Clavul 875/125 TAB (Augmentin 875 tab) PO SCH ×2 (07:48→20:56)
[2020-10-30] MEDS: Enoxaparin 40 MG/0.4 ML SYR SUBCUT SCH (12:09)
[2020-10-30] MEDS: Insulin GLARGINE 100 un/ml 10 ml VIAL SUBCUT SCH (21:47)
[2020-10-31] MEDS: Amoxicillin/Clavul 875/125 TAB (Augmentin 875 tab) PO SCH ×2 (08:39→21:07)
[2020-10-31] MEDS: Enoxaparin 40 MG/0.4 ML SYR SUBCUT SCH (12:24)
[2020-10-31] MEDS: Insulin GLARGINE 100 un/ml 10 ml VIAL SUBCUT SCH (21:07)
[2020-11-01] MEDS: Amoxicillin/Clavul 875/125 TAB (Augmentin 875 tab) PO SCH ×2 (08:07→21:16)
[2020-11-01] MEDS: Enoxaparin 40 MG/0.4 ML SYR SUBCUT SCH (11:51)
[2020-11-01] MEDS: Insulin GLARGINE 100 un/ml 10 ml VIAL SUBCUT SCH (21:16)
[2020-11-02] MEDS: Amoxicillin/Clavul 875/125 TAB (Augmentin 875 tab) PO SCH ×2 (07:42→21:14)
[2020-11-02] MEDS: Enoxaparin 40 MG/0.4 ML SYR SUBCUT SCH (12:18)
[2020-11-02] MEDS: Insulin GLARGINE 100 un/ml 10 ml VIAL SUBCUT SCH (21:15)
[2020-11-03] MEDS: Amoxicillin/Clavul 875/125 TAB (Augmentin 875 tab) PO SCH ×2 (08:29→20:56)
[2020-11-03] MEDS: Enoxaparin 40 MG/0.4 ML SYR SUBCUT SCH (15:04)
[2020-11-03] MEDS: Insulin GLARGINE 100 un/ml 10 ml VIAL SUBCUT SCH (20:56)
[2020-11-04 06:13] LABS: ABS Basophils 0.1 10^3/ul (0-0.2); ABS Eosinophils 0.2 10^3/ul (0-0.6); ABS Lymphocytes 1.5 10^3/ul (1.0-4.8); ABS Monocytes 0.4 10^3/ul (0-0.8); ABS Neutrophils 1.1 10^3/ul (1.5-7.7); Eosinophil % 5.3 %; Hematocrit 30 % (42-52); Hemoglobin 10.3 g/dL (14.0-18.0); Mean Corpuscular HGB Conc 34 g/dL (31-36); Mean Corpuscular Hemoglobin 30 pg (27-31); Mean Corpuscular Volume 88 fL (80-94); Mean Platelet Volume 8.1 fL (7.4-10.4); Platelet Count 277 10^3/uL (150-450); Red Blood Count 3.44 10^6 /uL (4.18-5.48); Red Cell Distribution Width 16 % (10-15); White Blood Count 3.2 10^3/uL (3.5-10.8)
[2020-11-04 06:32] LABS: Albumin 3.2 g/dL (3.2-5.2); Albumin/Globulin Ratio 0.9 (1-3); Calcium 8.7 mg/dL (8.6-10.3); EGFR African American 75.5 (>60); EGFR Non-African American 62.4 (>60); Globulin 3.6 g/dL (2-4); Potassium 4.7 mmol/L (3.5-5.0); Total Bilirubin 0.2 mg/dL (0.2-1.0); Total Protein 6.8 g/dL (6.4-8.9)
[2020-11-04 06:57] VITALS: BP 143/77
[2020-11-04] MEDS ORDERED: Insulin GLARGINE 100 un/ml 10 ml VIAL SUBCUT SCH (21:00)
== END 2020-11-04 11:29 | DRG 560 ==
LOC: PMRU 09:11
PROVIDERS: ADMIT Physical Medicine & Rehabilitation; ATTEND Physical Medicine & Rehabilitation

== ENCOUNTER 2021-01-28 11:33 | Inpatient (IN) ==
[2021-01-28 15:30] LABS: ABS Eosinophils 0.2 10^3/ul (0-0.6); ABS Lymphocytes 0.8 10^3/ul (1.0-4.8); ABS Monocytes 1.2 10^3/ul (0-0.8); ABS Neutrophils 14.1 10^3/ul (1.5-7.7); Eosinophil % 1.1 %; Hematocrit 32 % (42-52); Hemoglobin 10.8 g/dL (14.0-18.0); Lymphocyte % 4.7 %; Mean Corpuscular HGB Conc 34 g/dL (31-36); Mean Corpuscular Hemoglobin 30 pg (27-31); Mean Corpuscular Volume 87 fL (80-94); Mean Platelet Volume 7.8 fL (7.4-10.4); Platelet Count 247 10^3/uL (150-450); Red Blood Count 3.68 10^6 /uL (4.18-5.48); Red Cell Distribution Width 15 % (10-15); White Blood Count 16.3 10^3/uL (3.5-10.8)
[2021-01-28 15:45] LABS: Influenza A Molecular Negative (Negative); Influenza B Molecular Negative (Negative)
[2021-01-28 15:49] LABS: Troponin I 0.01 ng/mL (<0.03)
[2021-01-28 15:53] LABS: Rapid COVID-19 Molecular Undetected (Undetected)
[2021-01-28 16:15] LABS: ALT 19 U/L (7-52); AST 12 U/L (13-39); Albumin 3.8 g/dL (3.2-5.2); Albumin/Globulin Ratio 1.1 (1-3); Alkaline Phosphatase 127 U/L (35-149); Anion Gap 8 mmol/L (2-11); Blood Urea Nitrogen 39 mg/dL (6-24); C Reactive Protein 432.81 mg/L (<8.01); CO2 Carbon Dioxide 24 mmol/L (22-32); Calcium 9.1 mg/dL (8.6-10.3); Chloride 100 mmol/L (101-111); Globulin 3.6 g/dL (2-4); Glucose 157 mg/dL (70-100); Potassium 4.9 mmol/L (3.5-5.0); Sodium 132 mmol/L (135-145); Total Protein 7.4 g/dL (6.4-8.9)
[2021-01-28] MEDS ORDERED: Ciprofloxacin 400mg IVPREMIX 400 MG/200 ML BAG IVPB ONE (17:03)
[2021-01-28] MEDS ORDERED: metroNIDAZOLE IV 500 MG/100ML 500 MG/100 ML BAG IVPB ONE (17:03)
[2021-01-28] MEDS ORDERED: Lactated Ringers 1000 ml BAG IV.FLUID IV ONE (17:03)
[2021-01-28] MEDS ORDERED: Vancomycin 1,250 MG in NS 0.9% 250 ml 250 ML IVPB ONE (18:00)
[2021-01-28] MEDS ORDERED: Al Hydrox/Mg Hydrox/Simet LIQ 30 ML UDC PO PRN (21:10)
[2021-01-28] MEDS ORDERED: Magnesium Hydroxide LIQ 30 ML UDC PO PRN (21:10)
[2021-01-28] MEDS ORDERED: Dextrose 50% Syringe 50 ml 25 GM/50 ML SYRINGE IV PUSH PRN (22:05)
[2021-01-28] MEDS: Heparin 5000 UNITS/ML 1 mL VIAL SUBCUT SCH (22:39)
[2021-01-28] MEDS ORDERED: Vancomycin per Pharmacy 1 EA NOTE FOLLOW UP SCH (23:00)
[2021-01-28 23:01] LABS: Magnesium 1.6 mg/dL (1.9-2.7)
[2021-01-29] MEDS ORDERED: Magnesium Sulfate 2 gm BAG 2 GM/50 ML BAG IVPB ONE (00:15)
[2021-01-29 00:40] LABS: Total Iron Binding Capacity 203 mcg/dL (250-450); Transferrin 145 mg/dL (203-362)
[2021-01-29 00:48] LABS: % Iron Saturation 10 % (15-55); Iron < 20 ug/dL (50-212); Unsaturated Iron Binding < 188 ug/dL
[2021-01-29] MEDS: Vancomycin 1,250 MG in NS 0.9% 250 ml 250 ML IVPB SCH ×2 (05:59→18:35)
[2021-01-29] MEDS: Heparin 5000 UNITS/ML 1 mL VIAL SUBCUT SCH ×3 (05:59→21:53)
[2021-01-29 06:23] LABS: ABS Eosinophils 0.3 10^3/ul (0-0.6); ABS Lymphocytes 0.6 10^3/ul (1.0-4.8); ABS Monocytes 0.9 10^3/ul (0-0.8); Eosinophil % 2.6 %; Hematocrit 28 % (42-52); Lymphocyte % 4.4 %; Mean Corpuscular HGB Conc 35 g/dL (31-36); Mean Corpuscular Hemoglobin 31 pg (27-31); Mean Corpuscular Volume 87 fL (80-94); Mean Platelet Volume 7.9 fL (7.4-10.4); Platelet Count 220 10^3/uL (150-450); Red Blood Count 3.26 10^6 /uL (4.18-5.48); Red Cell Distribution Width 15 % (10-15); White Blood Count 12.9 10^3/uL (3.5-10.8)
[2021-01-29 06:43] LABS: Calcium 8.6 mg/dL (8.6-10.3); Potassium 4.2 mmol/L (3.5-5.0)
[2021-01-29 07:10] LABS: Urine Appearance Clear; Urine Bilirubin Negative (Negative); Urine Blood 1+ (Negative); Urine Color Yellow; Urine Glucose Negative (Negative); Urine Ketones Negative (Negative); Urine Nitrite Negative (Negative); Urine Protein 2+(100 mg/dL) (Negative); Urine Specific Gravity 1.014 (1.002-1.030); Urine Urobilinogen Negative (Negative)
[2021-01-29 07:17] LABS: Urine Bacteria Absent (Absent); Urine Red Blood Cell Trace(0-2/hpf) (Absent); Urine Sperm Present (Absent); Urine Squamous Epithelial Cell Present (Absent); Urine White Blood Cell Trace(0-5/hpf) (Absent)
[2021-01-29] MEDS: Ciprofloxacin 400mg IVPREMIX 400 MG/200 ML BAG IVPB SCH ×2 (08:27→20:38)
[2021-01-30 05:36] LABS: Hematocrit 26 % (42-52); Hemoglobin 9.1 g/dL (14.0-18.0); Mean Corpuscular HGB Conc 35 g/dL (31-36); Mean Corpuscular Hemoglobin 30 pg (27-31); Mean Corpuscular Volume 87 fL (80-94); Mean Platelet Volume 7.5 fL (7.4-10.4); Platelet Count 223 10^3/uL (150-450); Red Blood Count 2.99 10^6 /uL (4.18-5.48); Red Cell Distribution Width 15 % (10-15); White Blood Count 9.1 10^3/uL (3.5-10.8)
[2021-01-30 05:45] LABS: INR 1.12 (0.86-1.15)
[2021-01-30 05:52] LABS: Calcium 8.3 mg/dL (8.6-10.3); Magnesium 2.3 mg/dL (1.9-2.7); Potassium 4.3 mmol/L (3.5-5.0); Vancomycin Trough 14.8 mcg/mL
[2021-01-30] MEDS ORDERED: Vancomycin Trough Check NOTE FOLLOW UP ONE (06:00)
[2021-01-30] MEDS: Heparin 5000 UNITS/ML 1 mL VIAL SUBCUT SCH ×3 (06:18→21:49)
[2021-01-30] MEDS: Vancomycin 1,250 MG in NS 0.9% 250 ml 250 ML IVPB SCH ×2 (06:18→18:13)
[2021-01-30] MEDS: Ciprofloxacin 400mg IVPREMIX 400 MG/200 ML BAG IVPB SCH ×2 (08:46→21:49)
[2021-01-30] MEDS: NS 0.9% 1000 ml BAG 1,000 ML IV SCH (12:42)
[2021-01-30] MEDS ORDERED: Insulin GLARGINE 100 un/ml 10 ml VIAL SUBCUT SCH (21:00)
[2021-01-31] MEDS: Vancomycin 1,250 MG in NS 0.9% 250 ml 250 ML IVPB SCH ×2 (06:13→18:12)
[2021-01-31 06:18] LABS: Hematocrit 27 % (42-52); Hemoglobin 9.2 g/dL (14.0-18.0); Mean Corpuscular HGB Conc 34 g/dL (31-36); Mean Corpuscular Hemoglobin 29 pg (27-31); Mean Corpuscular Volume 86 fL (80-94); Mean Platelet Volume 6.9 fL (7.4-10.4); Platelet Count 261 10^3/uL (150-450); Red Blood Count 3.14 10^6 /uL (4.18-5.48); Red Cell Distribution Width 15 % (10-15); White Blood Count 8.2 10^3/uL (3.5-10.8)
[2021-01-31] MEDS: NS 0.9% 1000 ml BAG 1,000 ML IV SCH ×2 (06:23→09:58)
[2021-01-31 06:33] LABS: Calcium 8.3 mg/dL (8.6-10.3); Magnesium 2.1 mg/dL (1.9-2.7); Phosphorus 3.1 mg/dL (2.5-5.0); Potassium 4.9 mmol/L (3.5-5.0)
[2021-01-31 07:21] LABS: ABS Eosinophils 0.5 10^3/ul (0-0.6); ABS Lymphocytes 0.9 10^3/ul (1.0-4.8); ABS Monocytes 0.9 10^3/ul (0-0.8); ABS Neutrophils 5.8 10^3/ul (1.5-7.7); Eosinophil % 6.2 %; Lymphocyte % 10.9 %
[2021-01-31] MEDS ORDERED: Bupivacaine 0.5% 50 ML MDV VIAL ONE (07:35)
[2021-01-31] MEDS ORDERED: Midazolam 2 mg/2 ml VIAL 1 mg/ml 2 ml VIAL (2 mg) ONE (07:57)
[2021-01-31] MEDS ORDERED: Famotidine IV 10 MG/ML 2 ml VIAL (20 mg) ONE (08:12)
[2021-01-31] MEDS ORDERED: Ketamine HCL 50 mg/ml 10 ml VIAL (500 MG) ONE (08:19)
[2021-01-31] MEDS ORDERED: fentaNYL 100 mcg/2 ml 50 MCG/ML VIAL ONE (08:19)
[2021-01-31] MEDS ORDERED: Lidocaine 2% PF 5 ML VIAL ONE (08:19)
[2021-01-31] MEDS ORDERED: Propofol 10 MG/ML 20 ML BTL ONE (08:19)
[2021-01-31] MEDS ORDERED: Vancomycin 1,000 MG VIAL ONE (08:26)
[2021-01-31] MEDS ORDERED: fentaNYL 100 mcg/2 ml 50 MCG/ML VIAL IV PRN (08:39)
[2021-01-31] MEDS ORDERED: Naloxone 0.4 mg VIAL 0.4 mg/ml 1 ml VIAL IV PRN (08:39)
[2021-01-31] MEDS ORDERED: DiMENhydriNATE IV 50 mg/ml 1 ml VIAL IV PUSH PRN (08:39)
[2021-01-31] MEDS ORDERED: Acetaminophen IV 1 GM/100ML 100 ML IV ONE ×2 (09:26→09:34)
[2021-01-31] MEDS: Ciprofloxacin 400mg IVPREMIX 400 MG/200 ML BAG IVPB SCH ×2 (10:18→22:11)
[2021-01-31] MEDS: Insulin GLARGINE 100 un/ml 10 ml VIAL SUBCUT SCH (22:11)
[2021-02-01] MEDS: Vancomycin 1,250 MG in NS 0.9% 250 ml 250 ML IVPB SCH (06:13)
[2021-02-01 06:42] LABS: Hematocrit 27 % (42-52); Hemoglobin 9.4 g/dL (14.0-18.0); Mean Corpuscular HGB Conc 35 g/dL (31-36); Mean Corpuscular Hemoglobin 30 pg (27-31); Mean Corpuscular Volume 86 fL (80-94); Mean Platelet Volume 6.8 fL (7.4-10.4); Platelet Count 290 10^3/uL (150-450); Red Blood Count 3.12 10^6 /uL (4.18-5.48); Red Cell Distribution Width 15 % (10-15)
[2021-02-01 07:03] LABS: Calcium 8.6 mg/dL (8.6-10.3); Potassium 4.6 mmol/L (3.5-5.0)
[2021-02-01] MEDS: Enoxaparin 40 MG/0.4 ML SYR SUBCUT SCH (08:26)
[2021-02-01] MEDS: Ciprofloxacin 400mg IVPREMIX 400 MG/200 ML BAG IVPB SCH (08:31)
[2021-02-01] MEDS ORDERED: Polyethylene Glycol 3350 17 GM PACKET PO PRN (11:00)
[2021-02-01] MEDS: Magnesium Hydroxide LIQ 30 ML UDC PO SCH ×2 (11:46→21:10)
[2021-02-01 14:30] LABS: C Reactive Protein 94.62 mg/L (<8.01)
[2021-02-01] MEDS: Ampicillin ADVAN 2 GM in NS 0.9% 100 ml BAG 100 ML IVPB SCH ×2 (17:52→22:12)
[2021-02-01] MEDS: Insulin GLARGINE 100 un/ml 10 ml VIAL SUBCUT SCH (21:07)
[2021-02-02] MEDS: Ampicillin ADVAN 2 GM in NS 0.9% 100 ml BAG 100 ML IVPB SCH ×6 (02:00→22:43)
[2021-02-02 06:56] LABS: Hematocrit 28 % (42-52); Hemoglobin 9.7 g/dL (14.0-18.0); Mean Corpuscular HGB Conc 35 g/dL (31-36); Mean Corpuscular Hemoglobin 30 pg (27-31); Mean Corpuscular Volume 86 fL (80-94); Mean Platelet Volume 7.1 fL (7.4-10.4); Platelet Count 340 10^3/uL (150-450); Red Blood Count 3.26 10^6 /uL (4.18-5.48); Red Cell Distribution Width 15 % (10-15); White Blood Count 7.7 10^3/uL (3.5-10.8)
[2021-02-02 07:08] LABS: Calcium 8.8 mg/dL (8.6-10.3); Potassium 4.6 mmol/L (3.5-5.0)
[2021-02-02] MEDS: Enoxaparin 40 MG/0.4 ML SYR SUBCUT SCH (08:59)
[2021-02-02] MEDS: Magnesium Hydroxide LIQ 30 ML UDC PO SCH ×2 (08:59→22:27)
[2021-02-02] MEDS: Insulin GLARGINE 100 un/ml 10 ml VIAL SUBCUT SCH (22:28)
[2021-02-03] MEDS: Ampicillin ADVAN 2 GM in NS 0.9% 100 ml BAG 100 ML IVPB SCH ×5 (02:32→17:08)
[2021-02-03 07:02] LABS: Hematocrit 25 % (42-52); Hemoglobin 8.8 g/dL (14.0-18.0); Mean Corpuscular HGB Conc 35 g/dL (31-36); Mean Corpuscular Hemoglobin 30 pg (27-31); Mean Corpuscular Volume 86 fL (80-94); Platelet Count 351 10^3/uL (150-450); Red Blood Count 2.96 10^6 /uL (4.18-5.48); Red Cell Distribution Width 14 % (10-15); White Blood Count 7.9 10^3/uL (3.5-10.8)
[2021-02-03 07:17] LABS: Calcium 8.3 mg/dL (8.6-10.3); Potassium 4.5 mmol/L (3.5-5.0); eGFR CKD-EPI 71.4 (>60)
[2021-02-03] MEDS: Magnesium Hydroxide LIQ 30 ML UDC PO SCH (09:19)
[2021-02-03] MEDS: Enoxaparin 40 MG/0.4 ML SYR SUBCUT SCH (09:19)
[2021-02-03 15:27] VITALS: BP 104/67
== END 2021-02-03 17:33 | disposition swing bed (61) | DRG 982 ==
LOC: ED 11:33 → SSU 14:21 → SUATTDRO 21:36 → EDHOLD 21:36 → SSU 22:27
PROVIDERS: ADMIT Hospitalist; ATTEND Internal Medicine
PROC: O.ORAMP (2021-01-31 08:15)

== ENCOUNTER 2021-02-03 16:51 | Inpatient (IN) ==
[2021-02-03] MEDS ORDERED: Ondansetron ODT 4 mg TAB 4 MG TAB PO PRN (18:13)
[2021-02-03] MEDS ORDERED: Dextrose 50% Syringe 50 ml 25 GM/50 ML SYRINGE IV PUSH PRN (18:15)
[2021-02-03] MEDS ORDERED: Saline FLUSH-CENTRAL 10 ML SYRINGE CENT\\PICC SCH (19:00)
[2021-02-03] MEDS: Triamcinolone 0.025% OINT 15 GM TUBE TOPICAL SCH (21:20)
[2021-02-03] MEDS: Magnesium Hydroxide LIQ 30 ML UDC PO SCH (21:56)
[2021-02-03] MEDS: Ampicillin ADVAN 2 GM in NS 0.9% 100 ml BAG 100 ML IVPB SCH (22:17)
[2021-02-04] MEDS: Ampicillin ADVAN 2 GM in NS 0.9% 100 ml BAG 100 ML IVPB SCH ×6 (01:10→20:12)
[2021-02-04] MEDS: Magnesium Hydroxide LIQ 30 ML UDC PO SCH ×2 (08:36→20:13)
[2021-02-04] MEDS: Triamcinolone 0.025% OINT 15 GM TUBE TOPICAL SCH ×2 (08:36→20:13)
[2021-02-04] MEDS: Enoxaparin 40 MG/0.4 ML SYR SUBCUT SCH (12:42)
[2021-02-04 13:53] LABS: Hematocrit 27 % (42-52)
[2021-02-04] MEDS: Insulin GLARGINE 100 un/ml 10 ml VIAL SUBCUT SCH (17:40)
[2021-02-05] MEDS: Ampicillin ADVAN 2 GM in NS 0.9% 100 ml BAG 100 ML IVPB SCH ×6 (00:45→22:09)
[2021-02-05] MEDS: Enoxaparin 40 MG/0.4 ML SYR SUBCUT SCH (09:13)
[2021-02-05] MEDS: Magnesium Hydroxide LIQ 30 ML UDC PO SCH ×2 (09:16→22:09)
[2021-02-05] MEDS: Triamcinolone 0.025% OINT 15 GM TUBE TOPICAL SCH ×2 (09:16→22:10)
[2021-02-05] MEDS: Insulin GLARGINE 100 un/ml 10 ml VIAL SUBCUT SCH (17:42)
[2021-02-06] MEDS: Ampicillin ADVAN 2 GM in NS 0.9% 100 ml BAG 100 ML IVPB SCH ×6 (00:15→20:20)
[2021-02-06] MEDS: Magnesium Hydroxide LIQ 30 ML UDC PO SCH ×2 (07:57→20:05)
[2021-02-06] MEDS: Triamcinolone 0.025% OINT 15 GM TUBE TOPICAL SCH ×2 (08:01→20:05)
[2021-02-06] MEDS: Enoxaparin 40 MG/0.4 ML SYR SUBCUT SCH (09:49)
[2021-02-06] MEDS: Insulin GLARGINE 100 un/ml 10 ml VIAL SUBCUT SCH (17:22)
[2021-02-07] MEDS: Ampicillin ADVAN 2 GM in NS 0.9% 100 ml BAG 100 ML IVPB SCH ×2 (00:48→04:43)
[2021-02-07] MEDS: Triamcinolone 0.025% OINT 15 GM TUBE TOPICAL SCH ×2 (08:19→20:27)
[2021-02-07] MEDS: Magnesium Hydroxide LIQ 30 ML UDC PO SCH ×2 (08:20→20:27)
[2021-02-07] MEDS: DOXYcycline 100 MG in NS 0.9% 250 ml 250 ML IVPB SCH ×2 (10:07→20:38)
[2021-02-07] MEDS: Enoxaparin 40 MG/0.4 ML SYR SUBCUT SCH (11:22)
[2021-02-07] MEDS: Insulin GLARGINE 100 un/ml 10 ml VIAL SUBCUT SCH (17:55)
[2021-02-08] MEDS: Magnesium Hydroxide LIQ 30 ML UDC PO SCH (07:19)
[2021-02-08] MEDS: Triamcinolone 0.025% OINT 15 GM TUBE TOPICAL SCH (07:19)
[2021-02-08 07:58] VITALS: BP 132/80
[2021-02-08] MEDS: DOXYcycline 100 MG in NS 0.9% 250 ml 250 ML IVPB SCH (08:06)
[2021-02-08] MEDS: Enoxaparin 40 MG/0.4 ML SYR SUBCUT SCH (11:03)
== END 2021-02-08 16:35 | disposition home or self-care (01) | DRG 540 ==
LOC: SSU 17:33
PROVIDERS: ADMIT Hospitalist; ATTEND Internal Medicine

== ENCOUNTER 2023-03-27 19:16 | Inpatient (IN) ==
[2023-03-27] MEDS ORDERED: Piperacillin/Tazobac 3.375 BAG 3.375 GM/100 ML BAG IV ONE ×2 (19:38→23:33)
[2023-03-27] MEDS ORDERED: Vancomycin 1,000 MG in NS 0.9% 250 ml 250 ML IVPB ONE (19:38)
[2023-03-27 19:56] LABS: Hematocrit 41.9 % (38-53); Hemoglobin 14.2 g/dL (13.2-16.3); Mean Corpuscular Hemoglobin 31.1 pg (27-33); Mean Corpuscular Hgb Conc 33.8 g/dL (31-36); Mean Corpuscular Volume 91.9 fL (80-97); Mean Platelet Volume 8.2 fL (7.5-11.2); Platelet Count 408 10^3/uL (150-450); Red Blood Count 4.56 10^6/uL (4.06-5.63); White Blood Count 8.8 10^3/uL (3.6-10.2)
[2023-03-27] MEDS ORDERED: Vancomycin 1,500 MG in NS 0.9% 250 ml 250 ML IVPB ONE (20:00)
[2023-03-27 20:15] LABS: Albumin 3.9 g/dL (3.2-5.2); Albumin/Globulin Ratio 0.7 (1-3); Calcium 10.1 mg/dL (8.6-10.3); Creatinine, Serum 1.72 mg/dL (0.67-1.17); Potassium 4.7 mmol/L (3.5-5.0); Total Bilirubin 0.5 mg/dL (0.2-1.0); Total Protein 9.9 g/dL (6.4-8.9); eGFR CKD-EPI 44.4 (>60)
[2023-03-27 20:19] LABS: INR 1.13 (0.83-1.13)
[2023-03-27 20:20] LABS: Activated Partial Thrombo Time 40.7 seconds (26.0-38.0)
[2023-03-27 20:28] LABS: ABS Eosinophils 0.1 10^3/uL (0.0-0.5); ABS Lymphocytes 0.8 10^3/uL (1.0-4.8); ABS Monocytes 1.3 10^3/uL (0.0-1.1); ABS Neutrophils 6.5 10^3/uL (1.5-7.6); Eosinophil % 0.8 %; Lymphocyte % 9.1 %
[2023-03-27] MEDS ORDERED: Lactated Ringers 1000 ml BAG 1,000 ML IV ONE (20:49)
[2023-03-27 22:51] LABS: C Reactive Protein 475.89 mg/L (<8.01)
[2023-03-27 23:22] LABS: Venous Bicarbonate HCO3 18.9 mmol/L (24-28)
[2023-03-27] MEDS ORDERED: Senna TAB 8.6 mg TAB PO PRN (23:27)
[2023-03-27] MEDS ORDERED: Polyethylene Glycol 3350 17 GM PACKET PO PRN ×2 (23:27→23:38)
[2023-03-27] MEDS ORDERED: Al Hydrox/Mg Hydrox/Simet LIQ 30 ML UDC PO PRN (23:27)
[2023-03-27] MEDS ORDERED: Dextrose 50% Syringe 50 ml 25 GM/50 ML SYRINGE IV PUSH PRN (23:36)
[2023-03-27] MEDS ORDERED: Zosyn per Pharmacy NOTE FOLLOW UP SCH (23:45)
[2023-03-27] MEDS ORDERED: Enoxaparin 40 MG/0.4 ML SYR SUBCUT SCH (23:45)
[2023-03-28] MEDS: ZOSYN 3.375 GM Q8H per EXTENDED INFUSION IV SCH ×4 (00:10→23:58)
[2023-03-28] MEDS ORDERED: Insulin GLARGINE 100 un/ml 10 ml VIAL SUBCUT ONE (00:34)
[2023-03-28] MEDS ORDERED: Lactated Ringers 1000 ml BAG 1,000 ML IV ONE (00:37)
[2023-03-28 04:29] LABS: Urine Appearance Cloudy; Urine Bilirubin Negative (Negative); Urine Blood 1+ (Negative); Urine Color Yellow; Urine Glucose 3+(>=500 mg/dL) (Negative); Urine Ketones 1+ (Negative); Urine Nitrite Negative (Negative); Urine Protein 2+(100 mg/dL) (Negative); Urine Specific Gravity 1.024 (1.002-1.030); Urine Urobilinogen Negative (Negative)
[2023-03-28 05:16] LABS: Urine Bacteria Absent (Absent); Urine Red Blood Cell 2+(6-10/hpf) (Absent); Urine Sperm Present (Absent); Urine White Blood Cell 1+(6-10/hpf) (Absent)
[2023-03-28] MEDS ORDERED: Heparin 5000 UNITS/ML 1 mL VIAL SUBCUT SCH (06:00)
[2023-03-28 06:35] LABS: Hematocrit 31.3 % (38-53); Hemoglobin 10.7 g/dL (13.2-16.3); Mean Corpuscular Hemoglobin 30.9 pg (27-33); Mean Corpuscular Hgb Conc 34.2 g/dL (31-36); Mean Corpuscular Volume 90.5 fL (80-97); Mean Platelet Volume 7.8 fL (7.5-11.2); Platelet Count 307 10^3/uL (150-450); Red Blood Count 3.45 10^6/uL (4.06-5.63); Red Cell Distribution Width 12.8 % (12-17); White Blood Count 9.9 10^3/uL (3.6-10.2)
[2023-03-28 06:50] LABS: Calcium 7.2 mg/dL (8.6-10.3); Creatinine, Serum 1.51 mg/dL (0.67-1.17); Potassium 3.6 mmol/L (3.5-5.0); eGFR CKD-EPI 51.9 (>60)
[2023-03-28] MEDS ORDERED: Potassium Chlor 20 meq TAB.ER PO ONE (08:09)
[2023-03-28 11:55] LABS: Body Fluid Appearance Cloudy; Body Fluid Color Yellow; Body Fluid Source Synovial Fluid
[2023-03-28 12:43] LABS: Body Fluid Total Nucleated 73432 /mcL
[2023-03-28] MEDS ORDERED: Lactated Ringers 1000 ml BAG 1,000 ML IV SCH (13:00)
[2023-03-28] MEDS ORDERED: Vancomycin per Pharmacy 1 EA NOTE FOLLOW UP SCH (13:00)
[2023-03-28 13:15] LABS: ABS Basophils 0.1 10^3/uL (0.0-0.1); ABS Eosinophils 0.1 10^3/uL (0.0-0.5); ABS Monocytes 2.2 10^3/uL (0.0-1.1); ABS Neutrophils 6.5 10^3/uL (1.5-7.6); ABS Nucleated RBC 0.02 10^3/ul; Eosinophil % 1.4 %; Lymphocyte % 9.9 %; Nucleated Red Blood Cells % 0.2 %/100WBC (0.0-0.8); RBC Morphology Normal (Normal)
[2023-03-28 13:31] LABS: Body Fluid Band 2 %; Body Fluid Mono 3 %; Body Fluid NRBC 1; Body Fluid Total Cells Counted 200
[2023-03-28] MEDS ORDERED: Dexamethasone IV 4 MG/ML VIAL 1 ml VIAL ONE (15:36)
[2023-03-28] MEDS ORDERED: Propofol 10 MG/ML 20 ML BTL ONE (15:36)
[2023-03-28] MEDS ORDERED: Ondansetron 4 mg VIAL 2 MG/ML 2 ml VIAL ONE ×2 (15:36→17:19)
[2023-03-28] MEDS ORDERED: Lidocaine 2% PF 5 ML VIAL ONE (15:36)
[2023-03-28] MEDS ORDERED: Bupivacaine 0.5% 50 ML MDV VIAL ONE (15:37)
[2023-03-28] MEDS ORDERED: fentaNYL 100 mcg/2 ml 50 MCG/ML VIAL ONE ×3 (15:39→17:19)
[2023-03-28] MEDS ORDERED: Midazolam 2 mg/2 ml VIAL 1 mg/ml 2 ml VIAL (2 mg) ONE (15:40)
[2023-03-28] MEDS ORDERED: Sterile Water for Inj 10 ML ONE (16:21)
[2023-03-28] MEDS ORDERED: Phenylephrine 40 mcg/mL 10mL (400mcg) SYRINGE ONE (16:21)
[2023-03-28] MEDS ORDERED: fentaNYL 100 mcg/2 ml 50 MCG/ML VIAL IV PRN (16:58)
[2023-03-28] MEDS ORDERED: Naloxone 0.4 mg VIAL 0.4 mg/ml 1 ml VIAL IV PRN (16:58)
[2023-03-28] MEDS ORDERED: HYDROmorphone 1 MG/1 ML SYRINGE IV PRN (16:58)
[2023-03-28] MEDS ORDERED: Ondansetron 4 mg VIAL 2 MG/ML 2 ml VIAL IV PRN (16:58)
[2023-03-28] MEDS ORDERED: Acetaminophen IV 1 GM/100ML 1,000 MG/100 ML BAG IV PRN (17:35)
[2023-03-28] MEDS ORDERED: Morphine 2 MG/ML SYRINGE IV PRN ×2 (17:36)
[2023-03-28 18:28] LABS: Hematocrit 34.9 % (38-53); Hemoglobin 11.9 g/dL (13.2-16.3); Mean Corpuscular Hemoglobin 31.4 pg (27-33); Mean Corpuscular Volume 92.3 fL (80-97); Mean Platelet Volume 7.6 fL (7.5-11.2); Platelet Count 322 10^3/uL (150-450); Red Blood Count 3.78 10^6/uL (4.06-5.63); White Blood Count 9.6 10^3/uL (3.6-10.2)
[2023-03-28] MEDS: Lactated Ringers 1000 ml BAG 1,000 ML IV SCH (18:37)
[2023-03-28 18:39] LABS: Activated Partial Thrombo Time 38.5 seconds (26.0-38.0); INR 1.25 (0.83-1.13)
[2023-03-28 18:44] LABS: Creatinine, Serum 1.52 mg/dL (0.67-1.17); eGFR CKD-EPI 51.5 (>60)
[2023-03-28 19:26] LABS: ABS Basophils 0.1 10^3/uL (0.0-0.1); ABS Eosinophils 0.1 10^3/uL (0.0-0.5); ABS Lymphocytes 0.8 10^3/uL (1.0-4.8); ABS Monocytes 1.3 10^3/uL (0.0-1.1); ABS Neutrophils 7.4 10^3/uL (1.5-7.6); ABS Nucleated RBC 0.02 10^3/ul; Eosinophil % 1.3 %; Lymphocyte % 8.4 %; Nucleated Red Blood Cells % 0.2 %/100WBC (0.0-0.8)
[2023-03-28] MEDS: Vancomycin 1,250 MG in NS 0.9% 250 ml 250 ML IVPB SCH (20:35)
[2023-03-29] MEDS: Lactated Ringers 1000 ml BAG 1,000 ML IV SCH (05:17)
[2023-03-29 05:52] LABS: Hematocrit 30.8 % (38-53); Hemoglobin 10.4 g/dL (13.2-16.3); Mean Corpuscular Hemoglobin 30.8 pg (27-33); Mean Corpuscular Hgb Conc 33.9 g/dL (31-36); Mean Platelet Volume 7.5 fL (7.5-11.2); Platelet Count 325 10^3/uL (150-450); Red Blood Count 3.39 10^6/uL (4.06-5.63); Red Cell Distribution Width 13.4 % (12-17)
[2023-03-29] MEDS: Heparin 5000 UNITS/ML 1 mL VIAL SUBCUT SCH ×3 (06:02→22:30)
[2023-03-29 06:09] LABS: C Reactive Protein 413.29 mg/L (<8.01); Calcium 8.2 mg/dL (8.6-10.3); Creatinine, Serum 1.43 mg/dL (0.67-1.17); eGFR CKD-EPI 55.4 (>60)
[2023-03-29 06:41] LABS: ABS Lymphocytes 0.9 10^3/uL (1.0-4.8); ABS Monocytes 1.8 10^3/uL (0.0-1.1); ABS Neutrophils 7.3 10^3/uL (1.5-7.6); ABS Nucleated RBC 0.01 10^3/ul; Eosinophil % 0.1 %; Lymphocyte % 8.8 %; Nucleated Red Blood Cells % 0.1 %/100WBC (0.0-0.8)
[2023-03-29] MEDS: ZOSYN 3.375 GM Q8H per EXTENDED INFUSION IV SCH (09:40)
[2023-03-29] MEDS: SODIUM ZIRCONIUM CYCLOSILICATE 10 GM PACKET PO SCH ×2 (12:10→22:30)
[2023-03-29 14:36] LABS: Calcium 8.1 mg/dL (8.6-10.3); Creatinine, Serum 1.36 mg/dL (0.67-1.17); Magnesium 2.3 mg/dL (1.9-2.7); Phosphorus 2.5 mg/dL (2.5-5.0); Potassium 4.5 mmol/L (3.5-5.0); eGFR CKD-EPI 58.8 (>60)
[2023-03-29] MEDS ORDERED: Sulfur Hexaflouride MICROSPHR 25 MG VIAL ONE (15:24)
[2023-03-29] MEDS: Vancomycin 1,250 MG in NS 0.9% 250 ml 250 ML IVPB SCH (20:10)
[2023-03-30 02:55] LABS: Urine Chloride Concentration < 22 mmol/L; Urine Potassium Concentration 18.1 mmol/L; Urine Sodium Concentration < 18 mmol/L
[2023-03-30] MEDS: Lactated Ringers 1000 ml BAG 1,000 ML IV SCH (03:45)
[2023-03-30] MEDS: Heparin 5000 UNITS/ML 1 mL VIAL SUBCUT SCH ×3 (05:07→21:07)
[2023-03-30 05:35] LABS: Hematocrit 30.5 % (38-53); Mean Corpuscular Hgb Conc 32.7 g/dL (31-36); Mean Corpuscular Volume 91.8 fL (80-97); Mean Platelet Volume 7.8 fL (7.5-11.2); Platelet Count 293 10^3/uL (150-450); Red Blood Count 3.32 10^6/uL (4.06-5.63); Red Cell Distribution Width 12.9 % (12-17); White Blood Count 7.6 10^3/uL (3.6-10.2)
[2023-03-30 05:52] LABS: Creatinine, Serum 1.25 mg/dL (0.67-1.17); Potassium 4.7 mmol/L (3.5-5.0); eGFR CKD-EPI 65.1 (>60)
[2023-03-30] MEDS ORDERED: SODIUM ZIRCONIUM CYCLOSILICATE 10 GM PACKET PO SCH (11:00)
[2023-03-30 13:45] LABS: Urine Osmo 526 mOsm/kg (150-1150)
[2023-03-30] MEDS ORDERED: Vancomycin Trough Check NOTE FOLLOW UP ONE (20:30)
[2023-03-30 21:11] LABS: Creatinine, Serum 1.08 mg/dL (0.67-1.17); eGFR CKD-EPI 77.6 (>60)
[2023-03-30 21:27] LABS: Vancomycin Trough 8.8 mcg/mL
[2023-03-30] MEDS: Vancomycin 1,250 MG in NS 0.9% 250 ml 250 ML IVPB SCH (21:49)
[2023-03-30] MEDS: Vancomycin 1000 MG in NS 0.9% 250 ML IVPB SCH (22:45)
[2023-03-31] MEDS: Heparin 5000 UNITS/ML 1 mL VIAL SUBCUT SCH ×3 (06:08→21:39)
[2023-03-31 06:35] LABS: Hematocrit 30.6 % (38-53); Hemoglobin 10.2 g/dL (13.2-16.3); Mean Corpuscular Hemoglobin 30.7 pg (27-33); Mean Corpuscular Hgb Conc 33.4 g/dL (31-36); Mean Corpuscular Volume 91.8 fL (80-97); Mean Platelet Volume 7.2 fL (7.5-11.2); Platelet Count 286 10^3/uL (150-450); Red Blood Count 3.33 10^6/uL (4.06-5.63); White Blood Count 8.5 10^3/uL (3.6-10.2)
[2023-03-31 06:57] LABS: C Reactive Protein 393.37 mg/L (<8.01); Calcium 8.4 mg/dL (8.6-10.3); Creatinine, Serum 1.08 mg/dL (0.67-1.17); Potassium 4.7 mmol/L (3.5-5.0); eGFR CKD-EPI 77.6 (>60)
[2023-03-31 07:37] LABS: ABS Eosinophils 0.3 10^3/uL (0.0-0.5); ABS Lymphocytes 0.9 10^3/uL (1.0-4.8); ABS Monocytes 1.2 10^3/uL (0.0-1.1); ABS Neutrophils 6.2 10^3/uL (1.5-7.6); ABS Nucleated RBC 0.01 10^3/ul; Eosinophil % 3.2 %; Nucleated Red Blood Cells % 0.1 %/100WBC (0.0-0.8); RBC Morphology Normal (Normal); Toxic Granulation 1+
[2023-03-31] MEDS: Vancomycin 1000 MG in NS 0.9% 250 ML IVPB SCH ×2 (10:26→21:40)
[2023-03-31] MEDS: Polyethylene Glycol 3350 17 GM PACKET PO SCH (21:38)
[2023-04-01] MEDS: Heparin 5000 UNITS/ML 1 mL VIAL SUBCUT SCH ×3 (06:24→21:41)
[2023-04-01] MEDS: Polyethylene Glycol 3350 17 GM PACKET PO SCH ×2 (08:19→21:40)
[2023-04-01] MEDS ORDERED: Vancomycin Trough Check NOTE FOLLOW UP ONE (09:30)
[2023-04-01 10:26] LABS: Hematocrit 28.7 % (38-53); Hemoglobin 9.5 g/dL (13.2-16.3); Mean Corpuscular Hemoglobin 30.8 pg (27-33); Mean Corpuscular Hgb Conc 33.1 g/dL (31-36); Mean Corpuscular Volume 93.1 fL (80-97); Red Blood Count 3.08 10^6/uL (4.06-5.63); Red Cell Distribution Width 12.8 % (12-17); White Blood Count 11.2 10^3/uL (3.6-10.2)
[2023-04-01 10:37] LABS: Creatinine, Serum 1.01 mg/dL (0.67-1.17); Potassium 4.8 mmol/L (3.5-5.0); eGFR CKD-EPI 84.1 (>60)
[2023-04-01] MEDS: Vancomycin 1000 MG in NS 0.9% 250 ML IVPB SCH ×2 (10:51→21:41)
[2023-04-01 12:16] LABS: ABS Basophils 0.1 10^3/uL (0.0-0.1); ABS Eosinophils 0.2 10^3/uL (0.0-0.5); ABS Lymphocytes 1.1 10^3/uL (1.0-4.8); ABS Monocytes 1.2 10^3/uL (0.0-1.1); ABS Neutrophils 8.6 10^3/uL (1.5-7.6); Eosinophil % 1.9 %; Lymphocyte % 9.9 %; Platelet Count Platelets clumped. 10^3/uL (150-450)
[2023-04-01 14:18] LABS: Platelet Count 305 10^3/uL (150-450)
[2023-04-01 14:22] LABS: Mean Platelet Volume 7.5 fL (7.5-11.2)
[2023-04-02] MEDS: Heparin 5000 UNITS/ML 1 mL VIAL SUBCUT SCH ×3 (06:01→21:03)
[2023-04-02 06:32] LABS: Hematocrit 29.4 % (38-53); Hemoglobin 9.8 g/dL (13.2-16.3); Mean Corpuscular Hemoglobin 30.7 pg (27-33); Mean Corpuscular Hgb Conc 33.4 g/dL (31-36); Mean Corpuscular Volume 92.1 fL (80-97); Mean Platelet Volume 7.2 fL (7.5-11.2); Platelet Count 318 10^3/uL (150-450); Red Blood Count 3.19 10^6/uL (4.06-5.63); White Blood Count 10.3 10^3/uL (3.6-10.2)
[2023-04-02 06:51] LABS: Calcium 8.2 mg/dL (8.6-10.3); Creatinine, Serum 0.89 mg/dL (0.67-1.17); Potassium 4.8 mmol/L (3.5-5.0); eGFR CKD-EPI 96.9 (>60)
[2023-04-02 06:55] LABS: ABS Eosinophils 0.2 10^3/uL (0.0-0.5); ABS Lymphocytes 1.1 10^3/uL (1.0-4.8); ABS Monocytes 0.9 10^3/uL (0.0-1.1); ABS Nucleated RBC 0.01 10^3/ul; Eosinophil % 1.7 %; Nucleated Red Blood Cells % 0.1 %/100WBC (0.0-0.8)
[2023-04-02] MEDS: Polyethylene Glycol 3350 17 GM PACKET PO SCH ×2 (07:52→21:07)
[2023-04-02] MEDS: Vancomycin 1000 MG in NS 0.9% 250 ML IVPB SCH ×2 (10:27→21:35)
[2023-04-03] MEDS: Heparin 5000 UNITS/ML 1 mL VIAL SUBCUT SCH ×3 (05:53→20:16)
[2023-04-03 06:24] LABS: Hematocrit 29.1 % (38-53); Hemoglobin 9.7 g/dL (13.2-16.3); Mean Corpuscular Hemoglobin 30.7 pg (27-33); Mean Corpuscular Hgb Conc 33.4 g/dL (31-36); Mean Platelet Volume 7.2 fL (7.5-11.2); Platelet Count 351 10^3/uL (150-450); Red Blood Count 3.16 10^6/uL (4.06-5.63); Red Cell Distribution Width 12.9 % (12-17)
[2023-04-03 06:40] LABS: Calcium 8.2 mg/dL (8.6-10.3); Creatinine, Serum 1.09 mg/dL (0.67-1.17); Magnesium 2.1 mg/dL (1.9-2.7); Potassium 4.7 mmol/L (3.5-5.0); eGFR CKD-EPI 76.7 (>60)
[2023-04-03 06:57] LABS: ABS Eosinophils 0.2 10^3/uL (0.0-0.5); ABS Neutrophils 7.8 10^3/uL (1.5-7.6); ABS Nucleated RBC 0.01 10^3/ul; Eosinophil % 1.9 %; Lymphocyte % 9.9 %; Nucleated Red Blood Cells % 0.1 %/100WBC (0.0-0.8); RBC Morphology Normal (Normal)
[2023-04-03] MEDS: Polyethylene Glycol 3350 17 GM PACKET PO SCH ×2 (08:59→20:16)
[2023-04-03] MEDS ORDERED: Vancomycin Trough Check NOTE FOLLOW UP ONE (09:30)
[2023-04-03 10:13] LABS: C Reactive Protein 325.17 mg/L (<8.01)
[2023-04-03] MEDS: Vancomycin 1000 MG in NS 0.9% 250 ML IVPB SCH ×2 (11:41→20:16)
[2023-04-03] MEDS ORDERED: Naloxone 0.4 mg VIAL 0.4 mg/ml 1 ml VIAL IV PRN (13:44)
[2023-04-04] MEDS ORDERED: Lactated Ringers 1000 ml BAG 1,000 ML IV SCH ×2 (06:00)
[2023-04-04] MEDS ORDERED: Buffered Lidocaine 1% SYRIN 1 ml INTRADERM ONE ×2 (06:00)
[2023-04-04 08:07] LABS: Hematocrit 28.8 % (38-53); Hemoglobin 9.7 g/dL (13.2-16.3); Mean Corpuscular Hgb Conc 33.7 g/dL (31-36); Mean Corpuscular Volume 91.7 fL (80-97); Platelet Count 372 10^3/uL (150-450); Red Blood Count 3.14 10^6/uL (4.06-5.63); White Blood Count 9.4 10^3/uL (3.6-10.2)
[2023-04-04] MEDS: Polyethylene Glycol 3350 17 GM PACKET PO SCH ×2 (08:21→21:14)
[2023-04-04 08:24] LABS: Calcium 8.2 mg/dL (8.6-10.3); Creatinine, Serum 0.99 mg/dL (0.67-1.17); Potassium 4.7 mmol/L (3.5-5.0); eGFR CKD-EPI 86.1 (>60)
[2023-04-04] MEDS: Vancomycin 1000 MG in NS 0.9% 250 ML IVPB SCH ×2 (10:49→22:00)
[2023-04-04] MEDS ORDERED: fentaNYL 100 mcg/2 ml 50 MCG/ML VIAL ONE ×2 (12:12→15:26)
[2023-04-04] MEDS ORDERED: Lidocaine 2% PF 5 ML VIAL ONE (12:12)
[2023-04-04] MEDS ORDERED: Midazolam 2 mg/2 ml VIAL 1 mg/ml 2 ml VIAL (2 mg) ONE (12:12)
[2023-04-04] MEDS ORDERED: Propofol 10 MG/ML 20 ML BTL ONE (12:12)
[2023-04-04] MEDS ORDERED: Ondansetron 4 mg VIAL 2 MG/ML 2 ml VIAL ONE (12:12)
[2023-04-04] MEDS ORDERED: Dexamethasone IV 4 MG/ML VIAL 1 ml VIAL ONE (12:12)
[2023-04-04] MEDS ORDERED: Acetaminophen IV 1 GM/100ML 1,000 MG/100 ML BAG IV ONE (15:27)
[2023-04-04] MEDS ORDERED: Lactated Ringers 1000 ml BAG 1,000 ML IV ONE (16:39)
[2023-04-04 19:23] LABS: ABS Basophils 0.1 10^3/uL (0.0-0.1); ABS Lymphocytes 0.7 10^3/uL (1.0-4.8); ABS Monocytes 0.5 10^3/uL (0.0-1.1); ABS Neutrophils 14.8 10^3/uL (1.5-7.6); Eosinophil % 0.3 %; Hematocrit 31.5 % (38-53); Hemoglobin 10.3 g/dL (13.2-16.3); Lymphocyte % 4.1 %; Mean Corpuscular Hemoglobin 30.4 pg (27-33); Mean Corpuscular Hgb Conc 32.7 g/dL (31-36); Mean Corpuscular Volume 92.8 fL (80-97); Platelet Count 412 10^3/uL (150-450); Red Blood Count 3.39 10^6/uL (4.06-5.63); Red Cell Distribution Width 13.1 % (12-17); White Blood Count 16.1 10^3/uL (3.6-10.2)
[2023-04-04 19:36] LABS: Activated Partial Thrombo Time 36.4 seconds (26.0-38.0); INR 1.16 (0.83-1.13)
[2023-04-04 19:38] LABS: Creatinine, Serum 1.1 mg/dL (0.67-1.17); eGFR CKD-EPI 75.9 (>60)
[2023-04-05 06:26] LABS: Hemoglobin 9.3 g/dL (13.2-16.3); Mean Corpuscular Hemoglobin 30.7 pg (27-33); Mean Corpuscular Hgb Conc 33.2 g/dL (31-36); Mean Corpuscular Volume 92.4 fL (80-97); Mean Platelet Volume 7.1 fL (7.5-11.2); Platelet Count 364 10^3/uL (150-450); Red Blood Count 3.03 10^6/uL (4.06-5.63); White Blood Count 10.1 10^3/uL (3.6-10.2)
[2023-04-05 06:35] LABS: C Reactive Protein 223.2 mg/L (<8.01); Calcium 7.8 mg/dL (8.6-10.3); Creatinine, Serum 1.08 mg/dL (0.67-1.17); Magnesium 2.2 mg/dL (1.9-2.7); Phosphorus 4.2 mg/dL (2.5-5.0); Potassium 4.8 mmol/L (3.5-5.0); eGFR CKD-EPI 77.6 (>60)
[2023-04-05] MEDS: Polyethylene Glycol 3350 17 GM PACKET PO SCH ×2 (08:16→22:10)
[2023-04-05] MEDS: Heparin 5000 UNITS/ML 1 mL VIAL SUBCUT SCH ×3 (08:17→22:10)
[2023-04-05] MEDS: Vancomycin 1000 MG in NS 0.9% 250 ML IVPB SCH ×2 (09:39→22:26)
[2023-04-05 17:24] LABS: Glucose Confirmatory 408 mg/dL (70-100)
[2023-04-05 17:43] LABS: B. burgdorferi PCR Negative (Negative); B. garinii/B. afzellii PCR Negative (Negative)
[2023-04-05] MEDS ORDERED: Insulin GLARGINE 100 un/ml 10 ml VIAL SUBCUT SCH (21:00)
[2023-04-06] MEDS: Heparin 5000 UNITS/ML 1 mL VIAL SUBCUT SCH ×3 (05:37→21:39)
[2023-04-06 06:40] LABS: Hematocrit 26.9 % (38-53); Hemoglobin 8.9 g/dL (13.2-16.3); Mean Corpuscular Hemoglobin 30.3 pg (27-33); Mean Corpuscular Volume 91.9 fL (80-97); Platelet Count 384 10^3/uL (150-450); Red Blood Count 2.93 10^6/uL (4.06-5.63); White Blood Count 6.4 10^3/uL (3.6-10.2)
[2023-04-06 06:58] LABS: Calcium 7.6 mg/dL (8.6-10.3); Creatinine, Serum 1.23 mg/dL (0.67-1.17); Magnesium 2.2 mg/dL (1.9-2.7); Phosphorus 2.4 mg/dL (2.5-5.0); Potassium 4.4 mmol/L (3.5-5.0); eGFR CKD-EPI 66.4 (>60)
[2023-04-06 08:31] LABS: C Reactive Protein 154.35 mg/L (<8.01)
[2023-04-06] MEDS: Polyethylene Glycol 3350 17 GM PACKET PO SCH ×2 (08:33→21:39)
[2023-04-06] MEDS ORDERED: Vancomycin Trough Check NOTE FOLLOW UP ONE (09:30)
[2023-04-06 09:49] LABS: Creatinine, Serum 1.17 mg/dL (0.67-1.17); eGFR CKD-EPI 70.5 (>60)
[2023-04-06 10:10] LABS: Vancomycin Trough 19.4 mcg/mL
[2023-04-06] MEDS: Vancomycin 1000 MG in NS 0.9% 250 ML IVPB SCH (12:26)
[2023-04-06] MEDS: Vancomycin 2,000 MG in NS 0.9% 500 ml BAG 500 ML IVPB SCH (14:42)
[2023-04-06 17:58] LABS: Glucose Confirmatory 425 mg/dL (70-100)
[2023-04-06] MEDS: Insulin GLARGINE 100 un/ml 10 ml VIAL SUBCUT SCH (21:39)
[2023-04-07 04:35] LABS: ABS Basophils 0.1 10^3/uL (0.0-0.1); ABS Eosinophils 0.2 10^3/uL (0.0-0.5); ABS Lymphocytes 1.1 10^3/uL (1.0-4.8); ABS Monocytes 0.7 10^3/uL (0.0-1.1); ABS Neutrophils 4.5 10^3/uL (1.5-7.6); Eosinophil % 2.6 %; Hematocrit 26.4 % (38-53); Hemoglobin 8.8 g/dL (13.2-16.3); Lymphocyte % 16.4 %; Mean Corpuscular Hemoglobin 30.4 pg (27-33); Mean Corpuscular Hgb Conc 33.3 g/dL (31-36); Mean Corpuscular Volume 91.3 fL (80-97); Platelet Count 390 10^3/uL (150-450); Red Blood Count 2.89 10^6/uL (4.06-5.63); Red Cell Distribution Width 12.9 % (12-17); White Blood Count 6.5 10^3/uL (3.6-10.2)
[2023-04-07 04:52] LABS: C Reactive Protein 159.85 mg/L (<8.01); Calcium 7.4 mg/dL (8.6-10.3); Creatinine, Serum 0.98 mg/dL (0.67-1.17); Potassium 4.1 mmol/L (3.5-5.0); eGFR CKD-EPI 87.2 (>60)
[2023-04-07] MEDS: Heparin 5000 UNITS/ML 1 mL VIAL SUBCUT SCH (05:42)
[2023-04-07] MEDS: Polyethylene Glycol 3350 17 GM PACKET PO SCH ×2 (13:32→21:25)
[2023-04-07] MEDS: Vancomycin 2,000 MG in NS 0.9% 500 ml BAG 500 ML IVPB SCH (13:45)
[2023-04-07] MEDS: Enoxaparin 40 MG/0.4 ML SYR SUBCUT SCH (16:27)
[2023-04-07 16:44] LABS: HIV 4th Generation Nonreactive (Nonreactive)
[2023-04-07 17:37] LABS: Hepatitis B Surface Antigen Nonreactive (Nonreactive)
[2023-04-07 17:54] LABS: Hepatitis B Surface Ab Not Immune (Immune)
[2023-04-07 17:55] LABS: Hepatitis C Antibody Negative (Negative)
[2023-04-07] MEDS: Insulin GLARGINE 100 un/ml 10 ml VIAL SUBCUT SCH (21:26)
[2023-04-08 06:59] LABS: Hematocrit 24.2 % (38-53); Hemoglobin 8.3 g/dL (13.2-16.3); Mean Corpuscular Hgb Conc 34.4 g/dL (31-36); Mean Corpuscular Volume 90.3 fL (80-97); Mean Platelet Volume 7.2 fL (7.5-11.2); Platelet Count 402 10^3/uL (150-450); Red Blood Count 2.68 10^6/uL (4.06-5.63); Red Cell Distribution Width 12.6 % (12-17); White Blood Count 5.8 10^3/uL (3.6-10.2)
[2023-04-08 07:16] LABS: Calcium 7.9 mg/dL (8.6-10.3); Creatinine, Serum 0.92 mg/dL (0.67-1.17); Magnesium 1.8 mg/dL (1.9-2.7); Phosphorus 2.3 mg/dL (2.5-5.0); Potassium 4.1 mmol/L (3.5-5.0); eGFR CKD-EPI 94.1 (>60)
[2023-04-08] MEDS ORDERED: Magnesium Sulfate 2 gm BAG 2 GM/50 ML BAG IVPB ONE (07:27)
[2023-04-08] MEDS: Polyethylene Glycol 3350 17 GM PACKET PO SCH ×2 (08:46→21:06)
[2023-04-08] MEDS: Vancomycin 2,000 MG in NS 0.9% 500 ml BAG 500 ML IVPB SCH (15:15)
[2023-04-08] MEDS: Enoxaparin 40 MG/0.4 ML SYR SUBCUT SCH (15:15)
[2023-04-08] MEDS: Insulin GLARGINE 100 un/ml 10 ml VIAL SUBCUT SCH (21:06)
[2023-04-09] MEDS: Polyethylene Glycol 3350 17 GM PACKET PO SCH ×2 (08:54→21:28)
[2023-04-09] MEDS ORDERED: Vancomycin Trough Check NOTE FOLLOW UP ONE (13:30)
[2023-04-09] MEDS: Enoxaparin 40 MG/0.4 ML SYR SUBCUT SCH (15:14)
[2023-04-09] MEDS: Vancomycin 2,000 MG in NS 0.9% 500 ml BAG 500 ML IVPB SCH (15:14)
[2023-04-09] MEDS: Insulin GLARGINE 100 un/ml 10 ml VIAL SUBCUT SCH (21:32)
[2023-04-10 06:04] LABS: Creatinine, Serum 1.11 mg/dL (0.67-1.17); eGFR CKD-EPI 75.1 (>60)
[2023-04-10] MEDS: Polyethylene Glycol 3350 17 GM PACKET PO SCH ×2 (08:12→21:03)
[2023-04-10 08:59] LABS: C Reactive Protein 135.53 mg/L (<8.01)
[2023-04-10 10:57] LABS: Rapid COVID-19 Molecular Undetected (Undetected)
[2023-04-10] MEDS: Vancomycin 2,000 MG in NS 0.9% 500 ml BAG 500 ML IVPB SCH (16:27)
[2023-04-10] MEDS: Enoxaparin 40 MG/0.4 ML SYR SUBCUT SCH (17:58)
[2023-04-10] MEDS: Insulin GLARGINE 100 un/ml 10 ml VIAL SUBCUT SCH (21:03)
[2023-04-11] MEDS: Polyethylene Glycol 3350 17 GM PACKET PO SCH (09:25)
[2023-04-11 09:30] VITALS: BP 121/64
[2023-04-12] MEDS ORDERED: Vancomycin Trough Check NOTE FOLLOW UP ONE (13:30)
== END 2023-04-11 13:52 | DRG 488 ==
LOC: ED 19:16 → EDHOLD 23:27 → SUATTDRO 23:27 → EDHOLD 03-28 11:07 → SSU 03-28 11:13
PROVIDERS: ADMIT Internal Medicine; ATTEND Hospitalist